=== PATIENT | female | born 1955 | race Caucasian/White ===

== ENCOUNTER 2018-11-24 18:53 | Inpatient (IN) | payer OTHER, MEDICAID, SELFPAY ==
[2018-11-24 19:20] VITALS: BP 174/107; PULSE 118; RESP 20; TEMP 36.8; O2SAT 95; BMI 46.0
--- NOTE | 2018-11-24 21:29 | DI.CT.S_ITS ---
PROCEDURE: CT ABDOMEN PELVIS W CON INDICATIONS: abdominal pain TECHNIQUE: After the administration of intravenous contrast, 5 mm thick sections acquired from the diaphragm to the symphysis. 5 mm coronal and sagittal reformats were acquired. For radiation dose reduction, the following was used: automated exposure control, adjustment of mA and/or kV according to patient size. COMPARISON: None. FINDINGS: Image quality: Excellent. ABDOMEN: Lung bases: A basilar atelectasis. Heart size is normal. Solid organs: Liver is normal in size and enhancement. Small 1.2 cm anterior right hepatic lobe hypodensity best seen on image 18, series 2. Suggestion of peripheral nodular enhancement. Findings are likely related to a hepatic hemangioma. Gallbladder is unremarkable. Biliary system is non dilated. Pancreas enhances normally. Spleen is normal in size and enhancement. No adrenal nodules. Kidneys demonstrate normal size and enhancement, without hydronephrosis. Tiny punctate right renal density consistent with a nonobstructive renal stone. Peritoneum and bowel: There is a segment of circumferential bowel thickening of the sigmoid colon with associated narrowing and moderate dilatation of the remaining colon proximally. There is also mild pneumatosis involving the cecum and ascending colon. No evidence for portal venous gas or biliary gas. Visualized stomach and small bowel appear normal in caliber and thickness. There is reactive free fluid along the perihepatic region extending along the right paracolic gutter into the pelvis. Small amount of left paracolic fluid. No organized fluid collection or intra-abdominal free air. Extensive colonic diverticular disease without evidence for acute diverticulitis. Of note, the segment of thickened and narrowed sigmoid colon does not have peridiverticular inflammatory changes. Nodes and vessels: No retroperitoneal or mesenteric adenopathy by size criteria. Aorta and inferior vena cava are normal in size. Miscellaneous: No ventral hernias. PELVIS: Genitourinary: Bladder wall thickness is normal. Miscellaneous: No inguinal hernias or adenopathy. Bones: No suspicious bony lesions. No acute vertebral body compression fractures. Multilevel spondylosis of the imaged spine. IMPRESSION: 1. High-grade partial obstruction of the distal colon secondary to narrowing and circumferential thickening of the sigmoid colon. Findings may be related to an inflammatory/infectious process; however, underlying mass not excluded. Recommend direct visualization with colonoscopy after resolution of acute findings. 2. Pneumatosis coli of the cecum and descending colon without evidence for bowel ischemia. Findings may be related to infectious/inflammatory process, obstruction, or increased intraluminal pressure. Recommend clinical surveillance. 3. Colonic diverticulosis without evidence for acute diverticulitis. 4. A 1.2 cm anterior right hepatic lobe hypodensity likely representing a hepatic hemangioma. 5. Nonobstructing right nephrolith. Findings were discussed with Dr. Moore of the emergency department at 2252 hours by the overnight radiologist. No significant discrepancy with the pipe fittings molder radiology preliminary report. Dictated by: Gideon Pettit M.D. on 11/25/2018 at 10:00 Approved by: Gideon Pettit M.D. on 11/25/2018 at 10:18
[2018-11-24 21:39] VITALS: BP 156/86; PULSE 109; RESP 22; O2SAT 94
[2018-11-24 21:45] LABS: Add Manual Diff / Slide Review NO; Basophils Absolute Auto 100 /uL (0-100); Basophils Percent Auto 0.5 % (0-2); Eosinophils Absolute Auto 0 /uL (0-450); Eosinophils Percent Auto 0.1 % (2-4); Hemoglobin 14.5 g/dL (12.0-16.0); Lymphocytes Absolute Auto 1100 /uL (1100-4500); Lymphocytes Percent Auto 5.6 % (25-40); Mean Corpuscular HGB Conc 33.7 % (30-36); Mean Corpuscular Hemoglobin 29.7 PG (26-34); Mean Corpuscular Volume 88.1 fL (80-100); Monocytes Absolute Auto 1700 /uL (0-900); Monocytes Percent Auto 8.5 % (3-14); Neutrophils Absolute Auto 17000 /uL (1500-7000); Neutrophils Percent Auto 85.3 % (50-75); Platelet Count 281 X10^3/uL (150-400); Red Blood Cell Count 4.88 X10^6/uL (4.0-5.2); White Blood Cell Count 19.9 X10^3/uL (4.5-11.0)
[2018-11-24] MEDS: SODIUM CHLORIDE 0.9% 1,000 ML 1000 ML IV (21:49)
[2018-11-24 21:54] LABS: INR 1.5 (0.9-1.3); Prothrombin Time 17.3 SECONDS (10.1-12.7)
[2018-11-24 21:57] LABS: PTT Partial Thromboplastin Tim 32 SECONDS (26.4-36.2)
[2018-11-24 21:59] LABS: Alanine Aminotransferase 8 IU/L (9-52); Albumin Globulin Ratio 1.3 (1.0-2.8); Alkaline Phosphatase 54 U/L (38-126); Aspartate Aminotransferase 18 IU/L (14-36); Bilirubin Total 1.1 mg/dL (0.2-1.3); Blood Urea Nitrogen 13 mg/dL (7-17); Calcium 9.2 mg/dL (8.4-10.2); Carbon Dioxide 29 mmol/L (22-32); Chloride 90 mmol/L (98-107); Estimated Glomerular Filt Rate 56.2 mL/min (>60); Glucose 145 mg/dL (80-110); HEMOLYSIS < 15 (0-50); Potassium 3.2 mmol/L (3.4-5.1); Sodium 129 mmol/L (137-145)
[2018-11-24 22:00] LABS: Lipase < 10 U/L (23-300)
[2018-11-24] MEDS: HYDROMORPHONE 0.5 MG INJ IV (22:34)
[2018-11-24 22:56] VITALS: BP 167/88; PULSE 111; RESP 24; TEMP 37.5; O2SAT 92
[2018-11-24 23:05] LABS: Bacteria Urine Many (>30); Culture Indicated Urine Specimen Cultured; RBC Urine 0-1/HPF (0-5/HPF); Squamous Epithelial Cell Urine 1-5 /HPF (0-5/HPF); WBC Urine 30-100/HPF (0-5/HPF)
[2018-11-24] MEDS: PIPERACILLIN-TAZO 3.375 GM/50 ML FROZ.PIGGY IV (23:17)
[2018-11-24 23:28] LABS: Lactate (Lactic Acid) 0.9 mmol/L (0.7-2.1)
[2018-11-25] VITALS (24 sets, daily range): BP systolic 77–156; BP diastolic 52–86; PULSE 88–110; RESP 14–28; TEMP 35.8–37.2; O2SAT 93–97; BMI 46.0
--- NOTE | 2018-11-25 | PATH_ITS ---
[facility] Accession Number: [id number] . 01 Material submitted: . PART A: colon - RIGHT COLON PART B: sigmoid colon - DISTAL SIGMOID COLON WITH PROXIMAL RECTUM PART C: ovary - RIGHT OVARY . 01 Clinical history: . POSSIBLE APPENDICITIS . 02 Diagnosis: A-B. Terminal Ileum, Appendix, Right Colon and Proximal Transverse Colon, Right Hemicolectomy (length 55.6 cm and includes 4.1 cm of terminal ileum) and Distal Sigmoid Colon with Proximal Rectum, Bowel Resection (length 14.2 cm): Diverticulosis and diverticulitis with transmural active inflammation, serositis, focal ischemic changes, and cecal rupture; acute appendicitis with serositis is present. There is no evidence of viral cytopathic effect, infectious organisms, regions of dysplasia or malignancy. . C. Right Ovary (3.7 cm in Greatest Dimension), Oophorectomy: Uniloculated benign neoplasm, favor benign serous cystadenoma. 12/03/2018 . 02 Comment: Selected slides were reviewed by my gastrointestinal pathologist colleague, Dr. Vinny Hawkins. . 02 Electronically signed: . Sue Hooks MD, Pathologist NPI- [id number] . 01 Gross description: . (A) Received in formalin, labeled right colon, is a colon segment which includes the terminal ileum (length-4.1 cm, proximal diameter-2.1 cm), ileocecal valve, cecum, descending colon (length-51.5 cm, distal diameter-4.0 cm), attached appendix (length-5.4 cm, diameter-up to 0.3 cm), and attached mesentery (up to 5.1 cm in depth). The cecum is perforated (4.4 x 1.1 cm) 2.1 cm from the appendiceal orifice, 3.8 cm from the ileocecal valve, 6.5 cm from the proximal and 49.3 cm from the distal resection margins. The proximal serosa is partially covered in flaky friable exudate. The segment is distended and has tierney-mallory mucosa with minimal normal folds and diffuse flat areas. The appendix is unremarkable. No nodules, masses or lesions are identified. The resection margins are inked black. Section code: (A1) proximal resection margin, ict sales representative longitudinal sections; (A2) distal resection margin, ict sales representative longitudinal sections; (A3, A4) perforated area, ict sales representative serial sections; (A5) appendix, ict sales representative; (A6-A8) ict sales representative serial sections submitted proximal to distal. Note: This specimen has been reviewed by Dr. Andreas Hawkins. (B) Received in formalin, labeled distal sigmoid colon with proximal rectum, is an unoriented opened section of colon (length-14.2 cm, resection margin #1 diameter-2.3 cm, resection margin #2 diameter-3.8 cm) with attached mesentery (up to 6.5 cm in depth). The resection margins are received stapled. The mucosa is tierney with compact distorted folds containing diffuse diverticula and a tierney irregular apparent polyp (3.0 x 0.9 x 0.9 cm). The polyp is 7.2 cm from resection margin #1, 5.8 cm from resection margin #2, 10.3 cm from the radial resection margin, and 1.5 cm from the serosa. No nodules, masses, lesions or other polyps are identified. The resection margins are inked black. Section code: (B1) resection margin #1, longitudinal ict sales representative; (B2) distal resection margin, ict sales representative longitudinal sections; (B3-B10) ict sales representative serial sections submitted from resection margin #1 to #2, which includes 75% of the polyp submitted as well as multiple diverticula. Note: This specimen has been reviewed by Dr. Andreas Hawkins. (C) Received in formalin, labeled right ovary, is a tierney-white rubbery cystic ovary (3.7 x 3.7 x 2.0 cm) with smooth shiny flat serosa and contains red-brown semi-translucent gelatinous material. A scant amount of normal ovarian parenchyma is identified. Punchboard Filling Machine Operator serial sections submitted in cassettes C1-C4. ([id number]) /MRV . 02 Microscopic: . Immunohistochemical stains were performed with the following results. The controls stained appropriately. . RESULTS: Block C1 WT1: Positive on ovarian cyst lining cells. TTF1: Negative on ovarian cyst lining cells. . Results mitigate against the presence of struma ovarii. . * This test was developed and its performance characteristics determined by [facility]. It has not been cleared or approved by the U.S. Food and Drug Administration. The FDA has determined that such clearance or approval is not necessary. This test is used for clinical purposes. It should not be regarded as investigational or for research. . 02 Pathologist provided ICD-10: K35.80, K57.80 . 02 CPT . 896449, 715853, 173784, U71800, N48961 Performed at: [facility] [address] [id number] MD Keyur Humphries MD Phone: [phone] Performed at: 02 [facility] [address] [place] [id number] MD Cynthia Kulkarni MD Phone: [phone]
[2018-11-25 00:09] LABS: Carcinoembryonic Antigen 1.9 ng/mL (0.1-3.0)
--- NOTE | 2018-11-25 00:19 | P.HP_ITS ---
History of Present Illness Date Patient Seen: 11/25/18 Time Patient Seen: 00:18 Chief complaint: SENT BY MD - POSSIBLE APPENDICITIS Narrative: 63 yo woman without family hx of colorectal cancer and without prior colonoscopy presents with 9 days of progressive nausea watery diarrhea and gene rally feeling unwell. In the previous 4 days she has developed significant abdominal distention. Two days ago she began to develop significant right lower quadrant pain. She denies bloody bowel movements. In the emergency department she was found to have a leukocytosis of 19, creatinine of 1, CT scan demonstrated a large bowel obstruction at the level of the sigmoid colon with diverticular disease. She was noted market large bowel dilation with a relatively competent ileocecal valve and minimal small-bowel dilation. Her cecum is markedly dilated to over 14 cm, there appears to be some pneumatosis intestinalis within the wall of the cecum. No family history of colon polyps, no family history of inflammatory bowel disease is Patient History Medical History (Updated 11/25/18 @ 01:25 by Leonid Silvestre MD) Anxiety (Acute) Obesity (Acute) Meds Home Medications Medication Instructions Recorded Confirmed Type diazepam 5 mg PO PRN 11/24/18 History Allergies Allergy/AdvReac Type Severity Reaction Status Date / Time No Known Drug Allergies Allergy Verified 11/24/18 22:20 Review of Systems Constitutional Constitutional: Denies fever(s) Eyes Eyes: Denies bulging eyes ENT Ears, Nose, Mouth, and Throat: No lip swelling Cardiovascular Cardiovascular: Denies generalize swelling Respiratory Respiratory: Denies stridor Gastrointestinal Gastrointestinal: Denies coffee ground emesis Musculoskeletal Musculoskeletal: Denies loss of height Integumentary/Breasts Skin/Breast: Denies wounds Neurologic Neurologic: Denies abnormal speech and Denies confusion Psychiatric Psychiatric: Denies confusion Endocrine Endocrine: Denies deepening of the voice Hematologic/Lymphatic Hematologic/Lymphatic: Denies lymphadenopathy Allergic/Immunologic Allergic/Immunologic: Denies lip swelling Exam Vital Signs (past 8 hours): - 11/24/18 19:20 11/24/18 21:39 11/24/18 22:56 Temperature 98.2 F 99.5 F Pulse Rate 118 H 109 H 111 H Respiratory Rate 20 22 24 Blood Pressure 174/107 H Blood Pressure [Left Arm] 156/86 H 167/88 H Pulse Oximetry 95 94 92 Oxygen Delivery Method Room Air Narrative Exam Narrative: Moderately toxic appearing woman in obvious pain Const General: cooperative Orientation: alert [facility] Head: normal to inspection Nose: nares normal Mouth: oral mucosae normal and lip normal Eyes Eyelids: eyelids normal Conjunctivae: conjunctivae normal Sclera: sclerae normal Neck Neck: supple and other (No thyromegally) Chest Chest: other (LCTAB , regular respiratory effort) Cardio Rhythm: regular rhythm Heart Sounds: S1 normal, S2 normal, no gallops, no murmurs and no rubs GI Other: Abdomen is notably distended, bowel sounds are present, tympanitic, hard, firm, quite tender in the right lower quadrant, rectal exam without masses, no blood on glove, no blummers shelf Skin General: no rashes or lesions noted Neuro General: alert and awake Psych Appearance: grossly normal Affect: normal affect Objective Labs Result Diagrams: 11/24/18 21:35 11/24/18 21:35 Labs: Laboratory Results - last 24 hr 11/24/18 11/24/18 11/24/18 21:35 21:35 21:35 WBC 19.9 H RBC 4.88 Hgb 14.5 Hct 43.0 MCV 88.1 MCH 29.7 MCHC 33.7 RDW 13.0 Plt Count 281 Neut % (Auto) 85.3 H Lymph % (Auto) 5.6 L Shoshone % (Auto) 8.5 Eos % (Auto) 0.1 L Baso % (Auto) 0.5 Neut # (Auto) 08121 H Lymph # (Auto) 1100 Shoshone # (Auto) 1700 H Eos # (Auto) 0 Baso # (Auto) 100 PT 17.3 H INR 1.5 H APTT 32 Sodium 129 L Potassium 3.2 L Chloride 90 L Carbon Dioxide 29 BUN 13 Creatinine 1.00 Estimated GFR 56.2 L BUN/Creatinine Ratio 13.0 Glucose 145 H Lactate Calcium 9.2 Total Bilirubin 1.1 AST 18 ALT 8 L Alkaline Phosphatase 54 Total Protein 7.0 Albumin 4.0 Globulin 3.0 Albumin/Globulin Ratio 1.3 Lipase < 10 L Carcinoembryonic Ag Urine RBC Urine WBC Ur Squamous Epith Cells Urine Bacteria Ur Culture Indicated? 11/24/18 11/24/18 11/24/18 21:35 22:40 23:09 WBC RBC Hgb Hct MCV MCH MCHC RDW Plt Count Neut % (Auto) Lymph % (Auto) Shoshone % (Auto) Eos % (Auto) Baso % (Auto) Neut # (Auto) Lymph # (Auto) Shoshone # (Auto) Eos # (Auto) Baso # (Auto) PT INR APTT Sodium Potassium Chloride Carbon Dioxide BUN Creatinine Estimated GFR BUN/Creatinine Ratio Glucose Lactate 0.9 Calcium Total Bilirubin AST ALT Alkaline Phosphatase Total Protein Albumin Globulin Albumin/Globulin Ratio Lipase Carcinoembryonic Ag 1.9 Urine RBC 0-1/hpf Urine WBC 30-100/hpf H Ur Squamous Epith Cells 1-5 /hpf Urine Bacteria Many (>30) H Ur Culture Indicated? Specimen cultured Assessment & Plan Assessment & Plan narrative: 63-year-old woman with large bowel obstruction in the setting of competent ileocecal valve causing significant large bowel dilation with market cecal wall tension, concern for cecal perforation given tenderness and pneumatosis within wall cecum. Source of sigmoid obstruction colon cancer versus diverticular stricture -I favor the latter but cannot be sure. I discussed need for emergent surgery with patient given risk of cecal perforation, NG tube decompression now Surgical plan will be for sigmoid resection of mass, and given large caliber of bowel likely end-colostomy, may need cecal/right resection depending on health the cecum. Possibility for diverting ostomy. Plan: NG tube Pip lenora in ER Emergency bowel resetion I discussed risks of surgery including bleeding, infection, injury to adjacent structures including ureter, blood vessels, discussed the need for a temporary ostomy, discussed the possibility of a permanent ostomy, discussed the need for further surgery in the future for potential ostomy reversal. All questions a patient answered Patient makes clear to me that in the event that she is unable to make her own independent medical decision she would like her friend Kyra Peña to be her surrogate medical decision maker
[2018-11-25] MEDS: LACTATED RINGERS 1,000 ML 42 ML IV ×5 (01:00→09:18)
--- NOTE | 2018-11-25 02:13 | SUR.OPER ---
Lithotomy on padded OR bed, head on pillow, arms secured on padded arm boards at <90 degrees abduction. Legs secured in padded yellow fins stirrups.
--- NOTE | 2018-11-25 03:01 | PM.PROC.1 ---
Procedures Date/Time Date of procedure: 11/25/18 Time of procedure: : General Procedure description: Patient got a thoracic epidural prior to surgery for post op pain control, requested by general surgeon, Dr. Silvestre. Risks and benefits were discussed with patient prior to surgery. In OR, patient was sat on OR table, ASA monitoring applied, supplimental O2 supplied, 2 mg midazolam and 100mcg fentanyl given for procedural sedation. In sterile fashion, skin was prepped with chlorhexidine and allowed to fully dry. 1% lidocaine was injected for skin anesthesia. Using Remigio 18ga needle and low resistance saline syringe, T9-10 vertebral interspace was accessed via midline approach. MANUEL resistance at 9-10cm beyond skin. Epidural catheter was threaded to 15cm at skin. Negative aspiration. Test dose of 1.5% lidocaine with epi was given, no test dose reaction. Catheter was secured to skin with large tegaderm and medipore tape. Patient tolerated the procedure well.
--- NOTE | 2018-11-25 03:08 | P.PCN_ITS ---
Procedures Date/Time Date of procedure: 11/25/18 Time of procedure: General Procedure description: Patient got a thoracic epidural prior to surgery for post op pain control, requested by general surgeon, Dr. Silvestre. Risks and benef its were discussed with patient prior to surgery. In OR, patient was sat on OR table, ASA monitoring applied, supplimental O2 supplied, 2 mg midazolam and 100mcg fentanyl given for procedural sedation. In sterile fashion, skin was prepped with chlorhexidine and allowed to fully dry. 1% lidocaine was injected for skin anesthesia. Using Remigio 18ga needle and low resistance saline syringe, T9-10 vertebral interspace was accessed via midline approach. MANUEL resistance at 9-10cm beyond skin. Epidural catheter was threaded to 15cm at skin. Negative aspiration. Test dose of 1.5% lidocaine with epi was given, no test dose reaction. Catheter was secured to skin with large tegaderm and medipore tape. Patient tolerated the procedure well.
[2018-11-25 04:24] LABS: Add Manual Diff / Slide Review NO; Basophils Absolute Auto 0 /uL (0-100); Basophils Percent Auto 0.1 % (0-2); Eosinophils Absolute Auto 0 /uL (0-450); Eosinophils Percent Auto 0.2 % (2-4); Hematocrit 39.9 % (36-46); Hemoglobin 13.5 g/dL (12.0-16.0); Lymphocytes Absolute Auto 600 /uL (1100-4500); Lymphocytes Percent Auto 5.5 % (25-40); Mean Corpuscular HGB Conc 33.8 % (30-36); Mean Corpuscular Hemoglobin 29.8 PG (26-34); Mean Corpuscular Volume 88.2 fL (80-100); Monocytes Absolute Auto 500 /uL (0-900); Monocytes Percent Auto 5.2 % (3-14); Neutrophils Absolute Auto 9200 /uL (1500-7000); Platelet Count 247 X10^3/uL (150-400); Red Blood Cell Count 4.53 X10^6/uL (4.0-5.2); White Blood Cell Count 10.3 X10^3/uL (4.5-11.0)
[2018-11-25] MEDS: PIPERACILLIN-TAZO 3.375 GM/50 ML FROZ.PIGGY IV ×4 (05:00→22:14)
--- NOTE | 2018-11-25 06:35 | ED_ITS ---
HPI - Abdominal Pain General Chief Complaint: Abdominal Pain Stated Complaint: SENT BY MD - POSSIBLE APPENDICITIS Time Seen by Provider: 11/24/18 20:30 Source: patient and family Mode of arrival: ambulatory Limitations: no limitations History of Present Illness HPI narrative: 63-year-old female nonsmoker with benign medical history presents with a family friend in the chief complaint of severe, worsening generalized abdominal pain over the course of the week. She now has decreased appetite and nausea along with watery diarrhea and increasing abdominal distension. She has had subjective fever. She saw her primary care provider today whom sent her here for further evaluation. She has never had a colonoscopy. Her last oral intake was about 10 hours prior to arrival but she did have some water on the Saud MD complaint: abdominal pain Onset (ago): day(s) Pain Consistency: constant Location: diffuse Severity: severe Quality: cramping Radiation: none Relieving factors: nothing Exacerbating factors: movement Associated symptoms: nausea, vomiting, diarrhea, fever and chills Related Data Home Medications Medication Instructions Recorded Confirmed diazepam 5 mg PO PRN 11/24/18 Allergies Allergy/AdvReac Type Severity Reaction Status Date / Time No Known Drug Allergies Allergy Verified 11/24/18 22:20 Review of Systems Constitutional Denies chills, Denies fever(s), Denies lethargy and Denies weakness Eyes Denies change in vision, Denies eye discharge, Denies irritation and Denies loss of vision ENT Ears, Nose, Mouth, and Throat: Denies change in voice, Denies neck pain and Denies sore throat Cardiovascular Denies chest pain, Denies irregular heart rhythm, Denies lightheadedness, Denies palpitations, Denies dyspnea, Denies dyspnea on exertion and Denies orthopnea Respiratory Denies cough, Denies dyspnea, Denies dyspnea on exertion and Denies wheezing Gastrointestinal Gastrointestinal: Reports abdominal pain, Denies change in bowel habits, Reports diarrhea, Reports nausea and Reports vomiting Genitourinary Denies hematuria, Denies flank pain, Denies urinary incontinence and Denies urinary urgency Musculoskeletal Denies neck pain Integumentary/Breasts Denies pruritus, Denies erythema, Denies rash and Denies wounds Neurologic Denies confusion, Denies loss of vision and Denies weakness Psychiatric Denies anxiety, Denies confusion, Denies depression, Denies homicidal ideation and Denies suicidal ideation Endocrine Denies palpitations Hematologic/Lymphatic Denies easy bruising Allergic/Immunologic Denies wheezing [facility] Medical History Anxiety (Acute) Obesity (Acute) Social History (Updated 11/25/18 @ 06:33 by Kayode Moore DO) Smoking Status: Never smoker Exam Narrative Exam Narrative: GENERAL: [63] year old patient appears stated age. Obese, well- developed patient, in significant distress. HEAD: Atraumatic. Normocephalic. EYES: Pupils equal round and reactive. Extraocular motions intact. No scleral icterus. No injection or drainage. ENT: Nose without bleeding, purulent drainage. Throat without erythema, tonsillar hypertrophy or exudate. Airway patent. NECK: Trachea midline. Non tender CARDIOVASCULAR: Tachycardic but regular rhythm without murmurs, gallops, or rubs. RESPIRATORY: Clear to auscultation. Breath sounds equal bilaterally. No wheezes, rales, or rhonchi. GASTROINTESTINAL: Firm distended abdomen, bowel sounds present EXTREMITIES: No edema or joint tenderness. BACK: Nontender without deformity or crepitance. No flank tenderness. NEURO: AOx3. SKIN: No rash or erythema of visible areas Initial Vital Signs Initial Vital Signs: Vital Signs Temperature 98.2 F 11/24/18 19:20 Pulse Rate 118 H 11/24/18 19:20 Respiratory Rate 20 11/24/18 19:20 Blood Pressure 174/107 H 11/24/18 19:20 Pulse Oximetry 95 11/24/18 19:20 Course Orders Ordered: ED Orders 11/24/18 21:35 Carcinoembryonic Antigen Stat Complete Blood Count AUTO DIFF Stat Comprehensive Metabolic Panel Stat Lipase Stat Partial Thromboplastin Time Stat Prothrombin Time INR Stat 11/24/18 22:40 Urine Culture Stat Urine Microscopic Stat 11/24/18 23:09 Lactate (Lactic Acid) Stat 11/25/18 02:14 Body Fluid Culture Routine 11/25/18 04:05 Complete Blood Count AUTO DIFF Stat Packed Cells Stat Type and Screen Stat Acetaminophen (Tylenol) 325 mg PO NOW PRN PRN Reason: Pain, Mild (1-3) Fentanyl (Sublimaze) 50 mcg IV Q5MIN PRN PRN Reason: Pain, Moderate (4-6) Hydromorphone HCl (Dilaudid) 0.5 mg IV Q5MIN PRN PRN Reason: Pain, Moderate (4-6) Lactated Ringer's (Lactated Ringers) 1,000 mls @ 42 mls/hr IV CONT PEACE Last Admin: 11/25/18 06:23 Dose: 42 mls/hr Infusion: 11/25/18 06:23 Dose: 42 mls/hr Admin: 11/25/18 02:41 Dose: 42 mls/hr Infusion: 11/25/18 02:41 Dose: 42 mls/hr Admin: 11/25/18 01:00 Dose: 42 mls/hr FENT 2MCG/ML BUPIV 0.125% EPI (Fentanyl/Bupiv/Ns 2mcg/Ml - 0.125%) 2 mcg in 100 mls @ 6 mls/hr EPIDURAL CONT PEACE Lorazepam (Ativan) 0.25 mg IV NOW PRN PRN Reason: Anxiety Metoclopramide HCl (Reglan) 10 mg IV NOW PRN PRN Reason: Nausea And Vomiting Ondansetron HCl (Zofran) 4 mg IV Q4HR PRN PRN Reason: Nausea And Vomiting Ondansetron HCl (Zofran) 4 mg IV NOW PRN PRN Reason: Nausea And Vomiting Oxycodone/Acetaminophen (Percocet 5/325) 1 tab PO Q30MIN PRN PRN Reason: Mild or moderate pain Discontinued Medications Hydromorphone HCl (Dilaudid) 0.5 mg IV NOW ONE Stop: 11/24/18 22:06 Last Admin: 11/24/18 22:34 Dose: 0.5 mg Sodium Chloride (Normal Saline 0.9%) 1,000 mls @ 1,000 mls/hr IV BOLUS ONE Stop: 11/24/18 22:41 Last Infusion: 11/25/18 00:55 Dose: 0 mls/hr Admin: 11/24/18 21:49 Dose: 1,000 mls/hr Piperacillin/Tazobactam/Dextrose (Zosyn) 3.375 gm in 50 mls @ 100 mls/hr IV NOW ONE Stop: 11/24/18 23:33 Last Infusion: 11/24/18 23:50 Dose: 0 mls/hr Admin: 11/24/18 23:17 Dose: 100 mls/hr Piperacillin/Tazobactam/Dextrose (Zosyn) 3.375 gm in 50 mls @ 100 mls/hr IV NOW ONE Stop: 11/25/18 05:44 Last Infusion: 11/25/18 05:41 Dose: 0 mls/hr Admin: 11/25/18 05:00 Dose: 100 mls/hr Reevaluation(s) Reevaluation #1: call to Gen surgery with CT findings, request that he will come see patient Vital Signs - 8 hr 11/24/18 22:56 Temperature 99.5 F Pulse Rate 111 H Respiratory Rate 24 Blood Pressure [Left Arm] 167/88 H Pulse Oximetry 92 MDM - Abdominal Pain Lab Data Result diagrams: 11/25/18 04:05 11/24/18 21:35 Lab Results 11/24/18 11/24/18 11/24/18 Range/Units 21:35 21:35 21:35 WBC 19.9 H (4.5-11.0) X10^3/uL RBC 4.88 (4.0-5.2) X10^6/uL Hgb 14.5 (12.0-16.0) g/dL Hct 43.0 (36-46) % MCV 88.1 (80-100) fL MCH 29.7 (26-34) PG MCHC 33.7 (30-36) % RDW 13.0 (11.6-14.8) % Plt Count 281 (150-400) X10^3/uL Neut % (Auto) 85.3 H (50-75) % Lymph % (Auto) 5.6 L (25-40) % [place] % (Auto) 8.5 (3-14) % Eos % (Auto) 0.1 L (2-4) % Baso % (Auto) 0.5 (0-2) % Neut # (Auto) 87249 H (4806-9775) /uL Lymph # (Auto) 1100 (3566-7353) /uL [place] # (Auto) 1700 H (0-900) /uL Eos # (Auto) 0 (0-450) /uL Baso # (Auto) 100 (0-100) /uL PT 17.3 H (10.1-12.7) SECONDS INR 1.5 H (0.9-1.3) APTT 32 (26.4-36.2) SECONDS Sodium 129 L (137-145) mmol/L Potassium 3.2 L (3.4-5.1) mmol/L Chloride 90 L (98-107) mmol/L Carbon Dioxide 29 (22-32) mmol/L BUN 13 (7-17) mg/dL Creatinine 1.00 (0.52-1.04) mg/dL Estimated GFR 56.2 L (>60) mL/min BUN/Creatinine Ratio 13.0 (6-22) Glucose 145 H (80-110) mg/dL Lactate (0.7-2.1) mmol/L Calcium 9.2 (8.4-10.2) mg/dL Total Bilirubin 1.1 (0.2-1.3) mg/dL AST 18 (14-36) IU/L ALT 8 L (9-52) IU/L Alkaline Phosphatase 54 (38-126) U/L Total Protein 7.0 (6.3-8.2) g/dL Albumin 4.0 (3.5-5.0) g/dL Globulin 3.0 (1.7-4.1) g/dL Albumin/Globulin Ratio 1.3 (1.0-2.8) Lipase < 10 L (23-300) U/L Carcinoembryonic Ag (0.1-3.0) ng/mL Urine RBC (0-5/HPF) Urine WBC (0-5/HPF) Ur Squamous Epith Cells (0-5/HPF) Urine Bacteria (None) Ur Culture Indicated? Blood Type Antibody Screen Crossmatch 11/24/18 11/24/18 11/24/18 Range/Units 21:35 22:40 23:09 WBC (4.5-11.0) X10^3/uL RBC (4.0-5.2) X10^6/uL Hgb (12.0-16.0) g/dL Hct (36-46) % MCV (80-100) fL MCH (26-34) PG MCHC (30-36) % RDW (11.6-14.8) % Plt Count (150-400) X10^3/uL Neut % (Auto) (50-75) % Lymph % (Auto) (25-40) % [place] % (Auto) (3-14) % Eos % (Auto) (2-4) % Baso % (Auto) (0-2) % Neut # (Auto) (7995-9487) /uL Lymph # (Auto) (3150-3416) /uL [place] # (Auto) (0-900) /uL Eos # (Auto) (0-450) /uL Baso # (Auto) (0-100) /uL PT (10.1-12.7) SECONDS INR (0.9-1.3) APTT (26.4-36.2) SECONDS Sodium (137-145) mmol/L Potassium (3.4-5.1) mmol/L Chloride (98-107) mmol/L Carbon Dioxide (22-32) mmol/L BUN (7-17) mg/dL Creatinine (0.52-1.04) mg/dL Estimated GFR (>60) mL/min BUN/Creatinine Ratio (6-22) Glucose (80-110) mg/dL Lactate 0.9 (0.7-2.1) mmol/L Calcium (8.4-10.2) mg/dL Total Bilirubin (0.2-1.3) mg/dL AST (14-36) IU/L ALT (9-52) IU/L Alkaline Phosphatase (38-126) U/L Total Protein (6.3-8.2) g/dL Albumin (3.5-5.0) g/dL Globulin (1.7-4.1) g/dL Albumin/Globulin Ratio (1.0-2.8) Lipase (23-300) U/L Carcinoembryonic Ag 1.9 (0.1-3.0) ng/mL Urine RBC 0-1/hpf (0-5/HPF) Urine WBC 30-100/hpf H (0-5/HPF) Ur Squamous Epith Cells 1-5 /hpf (0-5/HPF) Urine Bacteria Many (>30) H (None) Ur Culture Indicated? Specimen cultured Blood Type Antibody Screen Crossmatch 11/25/18 11/25/18 Range/Units 04:05 04:05 WBC 10.3 (4.5-11.0) X10^3/uL RBC 4.53 (4.0-5.2) X10^6/uL Hgb 13.5 (12.0-16.0) g/dL Hct 39.9 (36-46) % MCV 88.2 (80-100) fL MCH 29.8 (26-34) PG MCHC 33.8 (30-36) % RDW 13.0 (11.6-14.8) % Plt Count 247 (150-400) X10^3/uL Neut % (Auto) 89.0 H (50-75) % Lymph % (Auto) 5.5 L (25-40) % [place] % (Auto) 5.2 (3-14) % Eos % (Auto) 0.2 L (2-4) % Baso % (Auto) 0.1 (0-2) % Neut # (Auto) 9200 H (5065-1313) /uL Lymph # (Auto) 600 L (5104-1276) /uL [place] # (Auto) 500 (0-900) /uL Eos # (Auto) 0 (0-450) /uL Baso # (Auto) 0 (0-100) /uL PT (10.1-12.7) SECONDS INR (0.9-1.3) APTT (26.4-36.2) SECONDS Sodium (137-145) mmol/L Potassium (3.4-5.1) mmol/L Chloride (98-107) mmol/L Carbon Dioxide (22-32) mmol/L BUN (7-17) mg/dL Creatinine (0.52-1.04) mg/dL Estimated GFR (>60) mL/min BUN/Creatinine Ratio (6-22) Glucose (80-110) mg/dL Lactate (0.7-2.1) mmol/L Calcium (8.4-10.2) mg/dL Total Bilirubin (0.2-1.3) mg/dL AST (14-36) IU/L ALT (9-52) IU/L Alkaline Phosphatase (38-126) U/L Total Protein (6.3-8.2) g/dL Albumin (3.5-5.0) g/dL Globulin (1.7-4.1) g/dL Albumin/Globulin Ratio (1.0-2.8) Lipase (23-300) U/L Carcinoembryonic Ag (0.1-3.0) ng/mL Urine RBC (0-5/HPF) Urine WBC (0-5/HPF) Ur Squamous Epith Cells (0-5/HPF) Urine Bacteria (None) Ur Culture Indicated? Blood Type A Positive Antibody Screen Negative Crossmatch See Detail Point of care testing: Urine Dip Bedside Urine Glucose Negative Bedside Urine Bilirubin - Negative Bedside Urine Ketone ++ 40 Urine Specific [place] 1.005 Bedside Urine Occult Blood ++ Bedside Urine pH 6.5 Bedside Urine Protein +/- 15 Bedside Urine Urobilinogen +/- 1mg Bedside Urine Nitrite + Positive Bedside Urine Leukocytes + 70 Esterase Discharge Plan Departure Patient Disposition: Admitted As Inpatient Clinical Impression: Large bowel obstruction Discharge Date/Time: 11/25/18 01:00 Interventions: ED Discharge Assessment Last Done: 11/24/18 23:48 Admit Date/Time: 11/24/18 23:05 Admit Provider: Leonid Silvestre
--- NOTE | 2018-11-25 10:05 | P.OP_ITS ---
Operative Date/Time/Diagnoses Date of procedure: 11/25/18 Time of procedure: 09:35 Pre-op diagnosis: High-grade sigmoid large bowel obstruction with impending cecal perforation Post-op diagnosis: other (High-grade sigmoid large bowel obstruction likely from diverticular disease, contained cecal perforation, numerous serosal tears of right colon) Procedure & Clinicians Procedure: 1) exploratory laparotomy 2) right hemicolectomy 3) distal sigmoid/proximal rectum bowel resection with extensive intrapelvic adhesiolysis 4) mobilization of splenic flexure 5) right oophorectomy 6) stapled 28 mm colorectal anastomosis, stapled [id number] functional end-to-end ileal colonic anastomosis 7) abdominal washout 8) diverting loop ileostomy 9) pedicle creation of greater omentum Same procedure as scheduled: Yes Surgeon: Leonid Silvestre Unpaid Intern: Roshan Hong Click Yes if Unassisted: No Anesthesia Type: General Operative Notes Findings: 1-contained cecal perforation with encasing omentum 2-extensive serosal rents within right colon and proximal transverse colon 3 -suspect diverticular mass obstructing the distal sigmoid colon 4 -adherent gallbladder dome to sigmoid colon potentially early colovesicular fistula 5-sigmoid specimen opened on the back table -appeared to be 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 A generous midline incision was carried through the skin subcutaneous tissue the fascia just superior to the umbilicus was scored with Bovie cautery and elevated with Bakari clamps and then divided in the midline. The underlying peritoneum was divided between tonsil clamps with the Metzenbaum. A finger sweep confirmed the absence of local adhesive disease in the fascia was opened widely inferiorly a bladder flap was created to allow of fascial division to the near vicinity of the pubic symphysis. The fascial incision was there did carried superiorly to within approximately 5 cm of the xiphoid process. Quite readily identified within the abdomen was markedly distended large bowel loops which appeared to be engorged purpuric and generally ischemic. There were numerous serosal tears along the right colon and distal transverse colon. There was no purulence within the of free fluid noted within the abdomen though this was cultured. Head there was significant inflammatory adhesions within the abdomen. Began by mobilizing the adhesions on the right side of the colon to assess the degree of ischemia with the cecum. In the process of finger fracturing greater omentum off of the sigmoid colon a contained perforation was entered with a rash of gas upon opening. Perforation was approximately 4 by 1 cm in size was a splitting of the colonic wall. The perforation was rapidly up close between 2 clamps with very minimal spillage. Then proceeded to inspect the remainder of the right colon there was 1 additional a perforation site which was closed with a whipstitch presented. With the egress of gas from the cecum the colon was much easier to handle I was able to inspect the majority of its anterior surface and in generally found the distal transverse colon as well as the left colon to be healthy. A hand was inserted into the pelvis and a firm but mobile mass was identified within the pelvis at the distal sigmoid colon this was adherent to the dome of the bladder as well as the adnexa on the left side and right side. Given the significant disease within the right colon in the ischemic wall of much of the right colon this became the operative priority. The greater omentum was reflected off of the transverse colon utilizing the avascular plane to enter into the lesser sac. I then divided the ileum approximately 5 cm from the ileocecal valve using a green load HETAL stapler. Moving from proximal to distal of the right colon, hepatic flexure was mobilized from its lateral attachments utilizing the white line of T[place]t and opening up the embryologic plane. I was careful not to incorporate Sander is fascia and preserved the duodenum without Kocherization. With the right colon mobilized of the midtransverse colon was divided utilizing a HETAL green load stapler in the entire mesentery was taken use lysing sequential clamp and tie technique. Over the course of mobilizing the hepatic flexure a medium-size mesenteric vein was avulsed. With good exposure it was able to be grasped and a right angle clamp placed across it. A stick tie was then utilized to suture ligate this vein. Hemostasis was excellent. Given the below benign disease on the right side I did not attempt to do a high ligation with removal of the right colon. As the mesentery was divided quite close to the bowel wall the right ureter was not identified. I then proceeded to to begin the pelvic dissection of the anterior portion of the sigmoid colon was freed from its inflammatory adhesions to the dome of the bladder several these adhesions were quite dense suspicious for a later colovesicular fistula. No mucosal tissue was identified however the bladder. The right adnexa was also significantly adherent to the colon. This was dissected off the right ovary appeared to be generally enlarged with a internal soft but cystic structure as a consequence it was removed. It was clamped and the pedicle ligated with the stick tie of 2 0 silk.. Then proceeded to enter into the embryologic plane along the white line of Toldt the lateral upper portion of the sigmoid colon working lateral to medial the iliopsoas muscle gonadal vessels as well as the ureter were clearly identified. The ureter was clearly seen to peristalse. Over the course of the ongoing dissection its location was checked multiple times. The sigmoid colon was then dissected free of the lateral sidewall and down into the pelvis. Approximately 4 cm proximal to the mass a window was made in the sigmoid colon mesentery and the colon divided with 2 fires of a 75 mm HETAL stapler. The mesentery was then divided with high ligation utilizing clamp and tie technique. At the level of sacral promontory the mother presacral space was entered . Small number of lateral stalks were removed on the medial lateral aspect of the proximal rectum. A small window was created in the rectal mesocolon and the mesocolon divided. I was careful to ensure that the division of the rectum was well below the splaying of the tinea. The rectum was divided with a TA stapler green load 60 mm . The specimen was brought off the field and then opened on the back table which revealed a benign appearing fibrous a stricture consistent with diverticular disease -is a small mobile mucosal lesion but this did not appear consistent with the tumor more so a enlarged polyp. At this point the entire left colon was mobilized as was the splenic flexure - this provided good length and allowed the small amount of remaining sigmoid colon to easily reach the rectal stump. The decision was made to place the patient in continuity given her market body habitus the difficulty of a anticipated future surgery as well as significant concern trying to bring up a colostomy through the patient's thick abdominal wall. Given the active inflammation and markedly dilated bowel caliber the decision was made to do a diverting loop ileostomy. With this left colon well mobilized was brought to the pelvis without difficulty -we then proceeded to open the sigmoid colon along the tenia to decompress. The controlling sutures were placed on either side of the enterotomy -this release gas and stool significant amount of time was spent decompressing the colon there was fecal contamination of pelvis which was moderate. Then proceeded to place a 28 mm anvil within the enterotomy incision and is and secured in place use lies in a 2 0 Prolene pursestring suture. 31 mm EEA stapler so or not currently available at the institution in was the largest size. Next of the stapler was advanced through the rectal stump the spike was deployed without incident the anvil was attached to it and the stapler was closed and fired without difficulty. Stapler was removed oddly the donut of the colonic side was robust and intact however the rectal side was not fully intact. A leak test was performed which showed a small area of bubbling on the anterior surface of the stapled anastomosis -this was closed given the minimal additional length using 3 simple interrupted vertical mattress sutures. Leak test was repeated with a sigmoidoscopy scope and hand used to occlude of the large bowel there were no further leaks despite significant pressure. With the anastomosis this created a large amount of fecal material emanated from the anus. At this point a functional end-to-end [id number] staple anastomosis was created between the terminal ileum and the distal sigmoid colon. This utilized a HETAL 75 stapler -the common enterotomy site was closed using hand-sewn 2 layer closure with 3 0 Vicryl a mucosal suture and buttressing 3 0 silk interrupted vertical mattress sutures.. A crotch stitch was placed anastomosis was palpated and found to be grossly open. A loop of ileum approximately 25 cm from the ileocolic anastomosis was identified that easily reached up through the anterior abdominal wall. On the right-sided just superior to the umbilicus the loop ileostomy was created an ellipse of skin was cored out as well as a subcutaneous tissue a cruciate incis ion was made on the anterior fascia of the anterior rectus sheath the rectus fibers were split along their direction in a cruciate incision of placed on the posterior sheath this easily permitted 2 fingers. A Oneyda drain was placed in a small mesenteric defect behind the ileal loop and used to tug the loop through the fascia to the level of the skin. The loop was then reduced in the abdomen copiously irrigated out with well over 10 L of fluid until it returned clear. A 19 Cambodian Bennie drain was then placed within the pelvis. A tongue of greater omentum was developed into a pedicle, this was used to place on the anterior aspect of the colorectal anastomosis where the initial bubble leak had been detected. The ileum loop was then pulled back through the fascial defect held in place wi th a Bard temporarily. Fascia was then closed using short travel small bite technique as well as multiple interrupted internal retention sutures Skin was then loosely closed with beni The ileostomy was matured the superior aspect was [place] correlates with the proximal aspect, the inferior aspect is distal. Both ends were probed and found to be widely open Appliance was applied Midline wound was packed wet to dry between beni Complications: none Condition: stable Disposition: ICU Plan for aftercare: ICU for ongoing resuscitation and epidural management
[2018-11-25] MEDS: EPI EPIDURAL (10:52)
[2018-11-25] MEDS: FENT 2 MCG/ML EPIDURAL (10:52)
[2018-11-25] MEDS: BUPIV 0.125% EPIDURAL (10:52)
[2018-11-25] MEDS: LACTATED RINGERS 1,000 ML 100 ML IV (10:55)
--- NOTE | 2018-11-25 12:04 | PC.ADMIT ---
Addendum entered by Cora Arreguin R.N. 11/25/18 15:38: Add 1530-Dr Spence made aware of hypotension, and positive response to IV blous, rec'd orders. Reduced epidural to 1ml/hr Addendum entered by Cora Arreguin R.N. 11/25/18 15:02: 1330-Dr Gordillo into see Pt, reduced epirdural rate to 2ml/hr and orders rec'd for fluid bolus, diet, activity, and communication to nursing staff. Pt denies pain at this time, reports discomfort with loza cath. Hourly urine output monitoring initiated. Tolerating 1 L NC. Addendum entered by Cora Arreguin R.N. 11/25/18 12:34: Add-[address] Cruz re: Hypotension, reduced epidural rate to 4mls/hr, with bolus per JUN Original Note: [address] Admission Note:Rec'd Pt from PACU Ray RN, Pt is A/o x3, drowsy, but speech is clear and appropriate. 2L NC Spo2 93%, lungs dim. ABD binder in place, and CDI ABD dressing to ABD midline. Wet to dry per op note and beni for closure. Illeostomy in place, beefy red with serosang drainage. Bennie drain compressed with serosang Pt has been updated of temp. status, Loza patent, PIV x2, Epidural in place and pain control infusion fentanyl/bupivicaine with good effect T7-T10, blood drainage to epidural insertion site. No nausea, pt c/o pressure to have stool discussed passing mucus/stool left post operatively. Bed lawson provided, no output. The patient,Erinn Saeed,63 y/o, was given written information regarding hospital policies, unit procedures and contact persons. Patient's smoking status: Never smoker. Vital Signs - 8 hr 11/25/18 09:45 11/25/18 09:48 11/25/18 09:53 Temperature 98.8 F Pulse Rate 90 95 H 90 Respiratory Rate 16 18 20 Blood Pressure 95/60 102/66 111/59 L Pulse Oximetry 94 94 95 11/25/18 09:57 11/25/18 10:03 11/25/18 10:09 Temperature 96.7 F L Pulse Rate 88 90 88 Respiratory Rate 24 16 22 Blood Pressure 126/57 L 121/62 Pulse Oximetry 95 95 95 11/25/18 10:23 11/25/18 10:28 11/25/18 10:40 Temperature 96.7 F L 96.5 F L 97.8 F Pulse Rate 90 88 92 H Respiratory Rate 22 22 19 Blood Pressure 115/80 110/74 106/81 Pulse Oximetry 96 95 93 11/25/18 11:50 Temperature 98.6 F Pulse Rate 104 H Respiratory Rate 27 H Blood Pressure 93/61 Pulse Oximetry 93
[2018-11-25] MEDS: SODIUM CHLORIDE 0.9% 100 ML 500 ML IV (13:45)
[2018-11-25] MEDS: LACTATED RINGERS 1,000 ML 500 ML IV (13:46)
[2018-11-25] MEDS: HEPARIN 5,000 UNIT/ML VIAL 5000 UNIT SUBCUT ×2 (13:58→21:13)
[2018-11-25] MEDS: ACETAMINOPHEN SUSP 650 MG/20.3 ML UDC TUBE ×2 (14:09→17:36)
--- NOTE | 2018-11-25 14:11 | DI.RAD.S_ITS ---
PROCEDURE: XR CHEST 1V INDICATIONS: verify NG tube placement TECHNIQUE: One view of the chest was acquired. COMPARISON: None. FINDINGS: Surgical changes and devices: Esophagogastric tube positioning normal.. Lungs and pleura: Lungs are mildly edematous but in the setting of reduced inspiration and large body habitus. No pleural effusions or pneumothorax. Mediastinum: Mediastinal contours appear normal. Heart size is normal. Bones and chest wall: No suspicious bony lesions. Overlying soft tissues appear unremarkable. IMPRESSION: A mild pulmonary edema pattern may be present but the inspiratory volume is reduced and the body habitus is large. This may simply represent mild atelectasis rather than true pulmonary edema. Esophagogastric tube positioning normal. Dictated by: Luc Alva M.D. on 11/25/2018 at 14:48 Approved by: Luc Alva M.D. on 11/25/2018 at 14:49
--- NOTE | 2018-11-25 14:17 | CM.DANOTE ---
Patient is a 63 year old female who was admitted on 11/24/18 for Lower Right Pain. Pt has [employer] and MI for insurance and her PCP is not listed. EMR was reviewed. Per Dr. Rankin, Surg Consult determined that pt needed surgery for sigmoid resection and new ostomy and pt currently with NG tube and surgery completed this morning and was quite complex. SW met bedside with pt and close friend Kyra and explained role and pt recently returned to the floor from surgery and was feeling quite drowsy and uncomfortable. Pt listened to discussion but did not participate much. Pt resides at home alone on [address] in a 3 bedroom house that she is considering selling as she feels it's too large and too much work for her. Pt is independent with ADL's but has been slowly declining the past few months and has felt weaker and less energy. 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 Pt denies hx of SNF or HH. Pt has designated her neighbor and friend Kyra as her DPOA but further discussion on completing formal pwk could be beneficial. Pt's friend Kyra lives nearby with her and both are good friends with the pt and have plans to help set up pt's house and clean/organize for when pt is stable for d/c home and eventually help sell the house if pt still determines it is needed. 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 Kyra feels SNF needed prior to return home for medical care and strengthening and preference would be [facility] if possible. Pt fell asleep and SW was not able to confirm this with pt and therefore no referral made for SNF yet at this time and waiting to determine how pt progresses during her hospital stay to determine SNF vs possible home to [place]. Plan: SW to follow closely tomorrow to determine d/c planning needs and further discussion with pt when she is more medically stable from surgery to discuss possible SNF vs home. If SNF, insurance auth will be needed and possible barrier to placement. DUONG Barraza Discharge Planning/Care Management Advanced directive, confirm from FAMILY Start: 11/25/18 00:15 Freq: Q24H Status: Complete Protocol: Document 11/25/18 00:15 HNB (Rec: 11/25/18 00:34 HNB [id number]) Advance Directive, confirm on record Time 00:34 Person contacted Patient Copy received No CM Discharge Assessment Start: 11/25/18 12:48 Freq: Status: Active Protocol: Document 11/25/18 12:48 BF (Rec: 11/25/18 12:57 BF [id number]) Discharge Planning Assessment Assigned Manager Manufacturing DUONG Juarez DPOA/Assigned Designee Name informal friend Kyra Underwood Contact Information [phone] Advance Directives? Yes History Provided By Patient Friend Medical Record Has Patient been admitted in last 30 No days? Prior Living Arrangements House Household Members none Type of transporation used prior to Drives own vehicle admit Independent with ADL's Yes Is patient alert and oriented? Yes Caregiver for Another No Patient/Family Preference Senior Care Facility Comment Waiting to see how pt progresses during her hospital stay of home vs SNF Discharge Plan Senior Care Facility Transportation Arrangement Friend vs facility pending plan of home vs SNF Medicare Choice List Provided Yes SNF/HH Preference likely [facility] if SNF needed, no referral made yet Has Agency SNF been contacted No Whiteboard Updated in Patient Room with Yes name and ext. # of Manager Manufacturing Review Status In Process Please Provide Date Initial DC 11/25/18 Assessment Was Performed Next Review Type Continued Stay Review
--- NOTE | 2018-11-25 14:33 | PT.IPTN ---
Surgery Performed Operation Date: 11/25/18 00:35 Actual Procedures p Exploratory Laparotomy GEN, right hemicolectomy, abdominal washout, sigmoid colectomy: beni, colorectal anastomosis, loop ileostomy, catecholization of greater omentum - Leonid Silvestre MD Physical Therapy Treatment Note M3 PT-IP Subjective Start: 11/25/18 14:31 Freq: NEEDED Status: Active Protocol: Document 11/25/18 14:31 AB (Rec: 11/25/18 14:33 AB [id number]) Subjective Physical Therapy Visit Type Notes checked with nurse waldron to change activity bedrest order and stated that they will change it. pt is not ready for PT though, pt's BP is still low: 82/53. will f/u tomorrow
--- NOTE | 2018-11-25 15:25 | PC.NURSE ---
Day Shift Wound care called and notified of wound care consult. Khadijah Funes RN will see patient tomorrow.
[2018-11-25] MEDS: SODIUM CHLORIDE 0.9% 1,000 ML 500 ML IV (15:33)
[2018-11-25 16:19] LABS: Lactate (Lactic Acid) 4.8 mmol/L (0.7-2.1)
[2018-11-25] MEDS: LIDOCAINE JELLY 2% 5 ML 1 APPLIC TOP (16:19)
[2018-11-25 16:21] LABS: B Type Natriuretic Peptide < 100 (<100)
--- NOTE | 2018-11-25 16:41 | PC.NURSE ---
Addendum entered by Lianna Alvares R.N. 11/25/18 22:33: 2230 - Pt c/o pain to back and LLQ, requesting to have abd binder loosened. Adjusted. Drsg intact. Epidural infusing at 1 ml/hr. Dilaudid given. Urine output 240cc for 7 hours. BP 119/68, HR remains tachycardic 108. 92% on 1L. Call light in reach. Addendum entered by Lianna Alvares R.N. 11/25/18 20:02: 1945 - Dr. Bebe gold on pt. Updated to current lactate, Vital signs and reports of discomfort. Reviewed I and O. and wound vac, to be place upon return to OR. Drsg remains intact with abd binder in place. Order for electrolyte check, okay to add-on to 1530 blood draw. Addendum entered by Lianna Alvares R.N. 11/25/18 17:42: 1750 - Pt continues to c/o loza catheter pain. 5 of 10. Ice pack provided, APAP given. Pt denies abd pain at rest. Monitor. Original Note: 1625 - NS bolus initiated. Epidural titrated down to 1ml/hr, per MD order r/t hypotension. Pt denies lightheadedness or chest pain. Monitor. 1630 - Pt c/o Loza catheter discomfort. Non-menses vaginal bleeding noted. eugenia-care, Lidocaine jelly applied. Balloon deflated, catheter advanced, balloon re-inflated and secure strap repositioned. Monitor.
[2018-11-25 17:57] LABS: Reflexed Lactate in 2 Hours Y
[2018-11-25 18:34] LABS: Lactate 2HR (Lactic Acid Rflx) 2.1 mmol/L (0.7-2.1)
[2018-11-25] MEDS: HYDROMORPHONE 0.5 MG INJ IV ×2 (18:39→22:25)
[2018-11-25 19:48] LABS: Carbon Dioxide 24 mmol/L (22-32); Chloride 97 mmol/L (98-107); HEMOLYSIS 21 (0-50); Potassium 3.4 mmol/L (3.4-5.1); Sodium 132 mmol/L (137-145)
[2018-11-25] MEDS: GABAPENTIN 400 MG CAPSULE 800 MG PO (21:03)
[2018-11-26] VITALS (25 sets, daily range): BP systolic 90–144; BP diastolic 49–87; PULSE 96–119; RESP 12–39; TEMP 36.4–37.1; O2SAT 17–97
[2018-11-26] MEDS: ACETAMINOPHEN SUSP 650 MG/20.3 ML UDC TUBE ×4 (00:48→17:29)
[2018-11-26] MEDS: LACTATED RINGERS 1,000 ML 100 ML IV ×2 (02:43→21:03)
[2018-11-26] MEDS: HYDROMORPHONE 0.5 MG INJ IV ×4 (02:52→21:02)
[2018-11-26] MEDS: PIPERACILLIN-TAZO 3.375 GM/50 ML FROZ.PIGGY IV ×3 (05:01→17:28)
[2018-11-26 05:50] LABS: Add Manual Diff / Slide Review NO; Basophils Absolute Auto 0 /uL (0-100); Basophils Percent Auto 0.1 % (0-2); Eosinophils Absolute Auto 0 /uL (0-450); Hematocrit 39.1 % (36-46); Hemoglobin 13.4 g/dL (12.0-16.0); Lymphocytes Absolute Auto 700 /uL (1100-4500); Lymphocytes Percent Auto 4.2 % (25-40); Mean Corpuscular HGB Conc 34.3 % (30-36); Mean Corpuscular Hemoglobin 30.4 PG (26-34); Mean Corpuscular Volume 88.6 fL (80-100); Monocytes Absolute Auto 900 /uL (0-900); Monocytes Percent Auto 4.9 % (3-14); Neutrophils Absolute Auto 16000 /uL (1500-7000); Neutrophils Percent Auto 90.8 % (50-75); Platelet Count 262 X10^3/uL (150-400); Red Blood Cell Count 4.42 X10^6/uL (4.0-5.2); Red Cell Distribution Width 13.1 % (11.6-14.8); White Blood Cell Count 17.6 X10^3/uL (4.5-11.0)
[2018-11-26 05:51] LABS: Magnesium 1.7 mg/dL (1.6-2.3)
[2018-11-26 05:52] LABS: BUN Creatinine Ratio 16.9 (6-22); Blood Urea Nitrogen 22 mg/dL (7-17); Calcium 7.8 mg/dL (8.4-10.2); Carbon Dioxide 28 mmol/L (22-32); Chloride 97 mmol/L (98-107); Estimated Glomerular Filt Rate 41.5 mL/min (>60); Glucose 129 mg/dL (80-110); HEMOLYSIS < 15 (0-50); Potassium 3.7 mmol/L (3.4-5.1); Sodium 132 mmol/L (137-145)
[2018-11-26] MEDS: HEPARIN 5,000 UNIT/ML VIAL 5000 UNIT SUBCUT ×3 (06:11→21:02)
--- NOTE | 2018-11-26 06:26 | PC.NURSE ---
NOC Shift: POD #1 Large bowel obstruction, pt AAOx3, pleasant, cooperative. Minimal complaint of pain from abdominal incisions affective pain control with epidural gtt @1ml/hr and diluadid prn IVP Q4H. VSS, ST on tele high of 113. Afebrile through shift. Remains on 1L NC to keep sats above 90 while sleeping IS started at bedside, pt complaint w/good effort. ABD round, large soft tender to touch. Rare BT's if any audible, no gas from ileostomy. Stoma beefy red, moist. Minimal drainage serrous. ABD dsg CDI, no orders for dsg changes currently. Possible return to OR today for repeat wash out and wound vac application. NG to LIS no output, Bennie drain patent with minimal output. Urine output 40 to 60 an hour. WBC increased this AM, H&H stable. Remains ICU status.
[2018-11-26] MEDS: MAGNESIUM SULFATE 4 GM/100 ML PIGGYBACK IV (08:52)
[2018-11-26] MEDS: POTASSIUM CHLORIDE 20 MEQ/15 ML UDC 40 MEQ PO (08:52)
--- NOTE | 2018-11-26 09:04 | PM.PN.1 ---
Subjective Date Patient Seen: 11/26/18 Time Patient Seen: 09:04 Interval history: Doing quite well this morning Making adequate urine Pain well controlled with thoracic epidural Has yet to mobilize Exam Vital Signs (past 8 hours): - 11/26/18 01:08 11/26/18 02:00 11/26/18 02:52 Temperature 98.2 F Pulse Rate 104 H 108 H Respiratory Rate 14 18 Blood Pressure 133/82 Pulse Oximetry 94 95 11/26/18 03:00 11/26/18 04:00 11/26/18 05:00 Temperature 98.6 F Pulse Rate 119 H 109 H 103 H Respiratory Rate 14 16 12 Blood Pressure 128/77 115/70 107/66 Pulse Oximetry 93 93 95 11/26/18 06:00 11/26/18 07:00 Temperature Pulse Rate 106 H 108 H Respiratory Rate 16 17 Blood Pressure 117/77 132/87 Pulse Oximetry 95 93 Oxygen Delivery Method Nasal Cannula Oxygen Flow Rate 1 Narrative Exam Narrative: Last 10 hours Uop 425 NG tube output now fallen significantly -clear Pelvic Drain with serous output Well-appearing no acute distress Breathing comfortably on minimal oxygen Regular tachycardia at 108 Abdomen soft minimally tender, ileostomy pink, minimal amount of straw-colored sweat within appliance, no gas in applying Open abdominal skin -pink, no adjacent induration or erythema, packed wet-to-dry with Kerlix Periphery warm and well perfused Objective Labs Result Diagrams: 11/26/18 05:15 11/26/18 05:15 Labs: Laboratory Results - last 24 hr 11/25/18 11/25/18 11/25/18 10:40 15:53 15:53 WBC RBC Hgb Hct MCV MCH MCHC RDW Plt Count Neut % (Auto) Lymph % (Auto) [place] % (Auto) Eos % (Auto) Baso % (Auto) Neut # (Auto) Lymph # (Auto) [place] # (Auto) Eos # (Auto) Baso # (Auto) Sodium Potassium Chloride Carbon Dioxide BUN Creatinine Estimated GFR BUN/Creatinine Ratio Glucose Lactate 4.8 H* Calcium Magnesium B-Natriuretic Peptide < 100 Nasal Screen MRSA (PCR) Negative for mrsa 11/25/18 11/25/18 11/26/18 15:53 18:20 05:15 WBC 17.6 H D RBC 4.42 Hgb 13.4 Hct 39.1 MCV 88.6 MCH 30.4 MCHC 34.3 RDW 13.1 Plt Count 262 Neut % (Auto) 90.8 H Lymph % (Auto) 4.2 L [place] % (Auto) 4.9 Eos % (Auto) 0.0 L Baso % (Auto) 0.1 Neut # (Auto) 37247 H Lymph # (Auto) 700 L [place] # (Auto) 900 Eos # (Auto) 0 Baso # (Auto) 0 Sodium 132 L Potassium 3.4 Chloride 97 L Carbon Dioxide 24 BUN Creatinine Estimated GFR BUN/Creatinine Ratio Glucose Lactate 2.1 Calcium Magnesium B-Natriuretic Peptide Nasal Screen MRSA (PCR) 11/26/18 11/26/18 05:15 05:15 WBC RBC Hgb Hct MCV MCH MCHC RDW Plt Count Neut % (Auto) Lymph % (Auto) [place] % (Auto) Eos % (Auto) Baso % (Auto) Neut # (Auto) Lymph # (Auto) [place] # (Auto) Eos # (Auto) Baso # (Auto) Sodium 132 L Potassium 3.7 Chloride 97 L Carbon Dioxide 28 BUN 22 H Creatinine 1.30 H Estimated GFR 41.5 L BUN/Creatinine Ratio 16.9 Glucose 129 H Lactate Calcium 7.8 L Magnesium 1.7 B-Natriuretic Peptide Nasal Screen MRSA (PCR) Assessment & Plan Assessment & Plan narrative: 63F POD 1 s/p exlap for complete sigmoid obstruction with contained cecal perforation and numerous serosal tears to right colon. s/p R hemicolectomy, sigmoid colon resection, EEA side-to-end stapled colorectal anastomosis, stapled [id number] functional end-to-end ileo colic anastomosis, with diverting loop ileostomy, right ovary removed as well appeared abnormal. Grossly appeared to be diverticular disease. Awaiting pathology Now doing reasonably well within the ICU Neuro: thoracic epidural, apap, gabapentin Pulm: No issues, oxygentating well CV: No issues mild tackycardia from surgical stress GI: awaiting ileostomy output, continue NGT today - output diminishing, Ostomy consulted to begin teaching. Awaiting pathology : leave drain in place until discharge and loza in place for 1 week to protect what may have been a subclinical/early colovessicle fistula ID: significant intra peritoneal contamination day 2/ IV abx with pip/lenora Endo: glucose in range FEN: LR 100, repleting K and Mag, NPO but meds with sips Proph; Heparin SQ Quality VTE Deep Vein Thrombosis/Pulmonary Embolism Present on Admission: No
--- NOTE | 2018-11-26 09:10 | P.PN_ITS ---
Subjective Date Patient Seen: 11/26/18 Time Patient Seen: 09:04 Interval history: Doing quite well this morning Making adequate urine Pain well controlled with thoracic epidural Has yet to mobilize Exam Vital Signs (past 8 hours): - 11/26/18 01:08 11/26/18 02:00 11/26/18 02:52 Temperature 98.2 F Pulse Rate 104 H 108 H Respiratory Rate 14 18 Blood Pressure 133/82 Pulse Oximetry 94 95 11/26/18 03:00 11/26/18 04:00 11/26/18 05:00 Temperature 98.6 F Pulse Rate 119 H 109 H 103 H Respiratory Rate 14 16 12 Blood Pressure 128/77 115/70 107/66 Pulse Oximetry 93 93 95 11/26/18 06:00 11/26/18 07:00 Temperature Pulse Rate 106 H 108 H Respiratory Rate 16 17 Blood Pressure 117/77 132/87 Pulse Oximetry 95 93 Oxygen Delivery Method Nasal Cannula Oxygen Flow Rate 1 Narrative Exam Narrative: Last 10 hours Uop 425 NG tube output now fallen significantly -clear Pelvic Drain with serous output Well-appearing no acute distress Breathing comfortably on minimal oxygen Regular tachycardia at 108 Abdomen soft minimally tender, ileostomy pink, minimal amount of straw-colored sweat within appliance, no gas in applying Open abdominal skin -pink, no adjacent induration or erythema, packed wet-to-dry with Kerlix Periphery warm and well perfused Objective Labs Result Diagrams: 11/26/18 05:15 11/26/18 05:15 Labs: Laboratory Results - last 24 hr 11/25/18 11/25/18 11/25/18 10:40 15:53 15:53 WBC RBC Hgb Hct MCV MCH MCHC RDW Plt Count Neut % (Auto) Lymph % (Auto) [place] % (Auto) Eos % (Auto) Baso % (Auto) Neut # (Auto) Lymph # (Auto) [place] # (Auto) Eos # (Auto) Baso # (Auto) Sodium Potassium Chloride Carbon Dioxide BUN Creatinine Estimated GFR BUN/Creatinine Ratio Glucose Lactate 4.8 H* Calcium Magnesium B-Natriuretic Peptide < 100 Nasal Screen MRSA (PCR) Negative for mrsa 11/25/18 11/25/18 11/26/18 15:53 18:20 05:15 WBC 17.6 H D RBC 4.42 Hgb 13.4 Hct 39.1 MCV 88.6 MCH 30.4 MCHC 34.3 RDW 13.1 Plt Count 262 Neut % (Auto) 90.8 H Lymph % (Auto) 4.2 L [place] % (Auto) 4.9 Eos % (Auto) 0.0 L Baso % (Auto) 0.1 Neut # (Auto) 18198 H Lymph # (Auto) 700 L [place] # (Auto) 900 Eos # (Auto) 0 Baso # (Auto) 0 Sodium 132 L Potassium 3.4 Chloride 97 L Carbon Dioxide 24 BUN Creatinine Estimated GFR BUN/Creatinine Ratio Glucose Lactate 2.1 Calcium Magnesium B-Natriuretic Peptide Nasal Screen MRSA (PCR) 11/26/18 11/26/18 05:15 05:15 WBC RBC Hgb Hct MCV MCH MCHC RDW Plt Count Neut % (Auto) Lymph % (Auto) [place] % (Auto) Eos % (Auto) Baso % (Auto) Neut # (Auto) Lymph # (Auto) [place] # (Auto) Eos # (Auto) Baso # (Auto) Sodium 132 L Potassium 3.7 Chloride 97 L Carbon Dioxide 28 BUN 22 H Creatinine 1.30 H Estimated GFR 41.5 L BUN/Creatinine Ratio 16.9 Glucose 129 H Lactate Calcium 7.8 L Magnesium 1.7 B-Natriuretic Peptide Nasal Screen MRSA (PCR) Assessment & Plan Assessment & Plan narrative: 63F POD 1 s/p exlap for complete sigmoid obstruction with contained cecal perforation and numerous serosal tears to right colon. s/p R hemicolectomy, sigmoid colon resection, EEA side-to-end stapled colorectal anastomosis, stapled [id number] functional end-to-end ileo colic anastomosis, with diverting loop ileostomy, right ovary removed as well appeared abnormal. Grossly appeared to be diverticular disease. Awaiting pathology Now doing reasonably well within the ICU Neuro: thoracic epidural, apap, gabapentin Pulm: No issues, oxygentating well CV: No issues mild tackycardia from surgical stress GI: awaiting ileostomy output, continue NGT today - output diminishing, Ostomy consulted to begin teaching. Awaiting pathology : leave drain in place until discharge and loza in place for 1 week to protect what may have been a subclinical/early colovessicle fistula ID: significant intra peritoneal contamination day 2/ IV abx with pip/lenora Endo: glucose in range FEN: LR 100, repleting K and Mag, NPO but meds with sips Proph; Heparin SQ Quality VTE Deep Vein Thrombosis/Pulmonary Embolism Present on Admission: No
--- NOTE | 2018-11-26 11:07 | PT.IIE ---
Current Diagnoses Diverticulitis of large intestine with perforation and abscess without bleeding (11/24/18) Surgery Performed Operation Date: 11/25/18 00:35 Actual Procedures p Exploratory Laparotomy GEN, right hemicolectomy, abdominal washout, sigmoid colectomy: beni, colorectal anastomosis, loop ileostomy, catecholization of greater omentum - Leonid Silvestre MD Medical History (Last Reviewed 11/25/18 @ 06:32 by Kayode Moore DO) Anxiety (Acute) Obesity (Acute) Physical Therapy Inpatient Evaluation/Re-Eval M1 PT/OT-IP Prior Functional Status Start: 11/25/18 14:31 Freq: NEEDED Status: Active Protocol: Document 11/26/18 11:07 AB (Rec: 11/26/18 12:00 AB [id number]) Medical Review Prior Functional Status Medical History Reviewed Yes Communication able to make needs known Mobility and Gait pt stated that she is independent with all mobilities and ambulation without AD Social History Household Members none Living Arrangements House Number of Floors (Floors) One Floor Number of Stairs To Enter/Railing? no steps to enter Home Environment High Toilet Walk in Shower Additional Social History Comment pt stated that she has friends that can assist her but not stay with her M2 PT-IP Current Condition Start: 11/25/18 14:31 Freq: NEEDED Status: Active Protocol: Document 11/26/18 11:07 AB (Rec: 11/26/18 12:00 AB [id number]) Physical Therapy Current Condition Current Condition Evaluation Date 11/26/18 Treatment Diagnosis large bowel obstruction s/p ex -lap and hemicolectomy; generalized weakness Onset Date 11/24/18 Precautions Abdominal Surgery Precautions Log Roll Lifting Restrictions Gait Belt above Incisional Area M3 PT-IP Subjective Start: 11/25/18 14:31 Freq: NEEDED Status: Active Protocol: Document 11/26/18 11:07 AB (Rec: 11/26/18 12:00 AB [id number]) Subjective Physical Therapy Visit Type Type Initial Evaluation Visit Start Time 11:07 Visit Stop Time 11:44 Total Visit Minutes 37 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 Physical Therapy Visit Comments Patient Comments pt agreeable to do PT Therapy Pain Assessment Pain When Pain Assessed At Rest Pain Present Pain Present Pain Reported Location Abdomen Intensity 2 Scale Used increased to 4/10 with mobility Pain Management Techniques Re-positioning Timing of Activity with Medications M4 PT-IP Mobility and Gait Start: 11/25/18 14:31 Freq: NEEDED Status: Active Protocol: Document 11/26/18 11:07 AB (Rec: 11/26/18 12:00 AB [id number]) PT-Bed Mobility Assessment Rolling Type of Rolling Log Rolling Level of Assist Maximal Assistance Supine to Sit Supine to Sit Maximum Assistance 1 Person Assistance Bedrails Scooting Scooting to Edge of Bed Standby Assistance PT-Transfer Assessment Sit to and From Stand Sit to and from Stand Contact Guard Assistance Equipment Transfer Assistive Device Gait Belt Front Wheeled Walker Orthotic/Prosthetic Devices or Brace: No Transfers Transfer Destination Chair Transfer Technique Stand Step Pivot Transfer Ability Level of Assist Contact Guard Assistance 1 Person Assistance Use of Upper Extremities Gait Assessment Gait Gait Assistance Required: Contact Guard Assist Distance (Feet) 3 Able to Maintain Weight Bearing Status Yes During Gait Assistive Devices Assistive Device Gait Belt Front Wheeled Walker Orthotic/Prosthetic Devices or Brace: No Gait Deviations General Gait Pattern Decreased Stride Length Decreased Feet Clearance Factors Limiting Gait Function Factors Limiting Gait Function Decreased Activity Tolerance Pain Comments Gait Comments pt completed ambulation using FWW ~ 3 ft forward and back CGA. ambulation limited due to NG tube . PT-Balance Assessment Sitting Balance and Reactions Static Sitting Balance Ability Good Dynamic Sitting Balance Ability Good Standing Balance and Reactions Static Standing Balance Ability Fair Dynamic Standing Balance Ability Fair Device Used FWW M5 PT-IP Objective Assessments Start: 11/25/18 14:31 Freq: NEEDED Status: Active Protocol: Document 11/26/18 11:07 AB (Rec: 11/26/18 12:00 [id number]) Orientation Orientation/Cognition Level of Alertness Alert Orientation Name Age Place Situation Language Function Ability No Deficits Noted Safety Awareness Understands Safety Issues Memory Description No Deficits Noted Gross Range of Motion Lower Extremity ROM Assessment Within Functional Limits Strength Lower Extremity Strength Assessment Within Functional Limits Coordination Assessment Gross Coordination Gross Coordination WNL Sensation Assessment Sensation Gross Sensation WNL Muscle Tone Muscle Tone WNL Yes M6 PT-IP Treatment Start: 11/25/18 14:31 Freq: NEEDED Status: Active Protocol: Document 11/26/18 11:07 AB (Rec: 11/26/18 12:00 AB [id number]) Physical Therapy Treatment Education Education Provided Precautions Safety M7 PT-IP Assessment and Plan Start: 11/25/18 14:31 Freq: NEEDED Status: Active Protocol: Document 11/26/18 11:07 AB (Rec: 11/26/18 12:00 AB [id number]) PT Summary Assessment and Plan Potential Rehabilitation Potential Good Status of Condition at Evaluation Stable Summary Impairments Pain ROM Strength Balance Coordination Sensation Tone Cognition Bed Mobility Transfers Gait Activity Tolerance Assessment Summary pt requiring max A with bed mobility and CGA with transfers and ambulation using FWW. pt will likely progress in function during hospital stay. will continue to assess progress for safe d/c plan. Goals Bed Mobility Goal Standby Assistance Transfer Goal Independent Front Wheeled Walker Gait Goal Independent Front Wheel Walker Gait Distance 200 Other Goals to improve ambulation ~ 250 ft least restrictive AD or without AD Days to Meet Goals 10 Frequency of Treatment Frequency Of Treatment Once a Day Treatment Plan Physical Therapy Treatment Plan Bed Mobility Training Transfer Training Gait Training Therapeutic Exercise Balance Retraining Post Op Education Discharge Planning Hot or Cold Pack Neuromuscular Re-ed Coordination Retraining Manual Therapy Other Recommendations and Next Treatment bed mobility, transfers, Focus ambulation Recommendations To Nursing Amount of Assist Needed 1 Person Assist Discharge Recommendations PT Discharge Recommendations Home with Assistance Home Health Equipment Needed for Home Before FWW if not safe with other AD/ Discharge without AD
--- NOTE | 2018-11-26 12:13 | CM.DPNOTE ---
DCP Cont: Reviewed chart. Pt now POD#1 s/p extensive abd surgery w/ Dr Silvestre. Awaiting pathology. Spoke w/ANNMARIE Shepherd, pt now up to bedside chair for the first time which went well. Friend Kyra at bedside. Pt is expected to remain admitted at least through the weekend and likely through early next week. Pt very hopeful she will go home w/assist from her friends. Medical POC still unfolding as pt is only POD#1 from surgery and Ostomy nurse Khadijah Funes will begin teaching re: care of new Ostomy. Wound vac (?) Following closely for coordination of safe DCP as medical management continues in ICU. Pt has [employer]/Medicaid; this INTERNET SALES DIRECTOR hopeful pt can return home when medically cleared as she is very active and indp. at baseline. DUONG Parsons
--- NOTE | 2018-11-26 14:06 | PC.NURSE ---
Pt noted to have fluid leaking from L AC PIV site and c/o pain to L Hand PIV site. Mult attempts by 3 seperate RNs to initiate IV access unsuccessful. Pt tolerated well and is in no acute distress. Clarified with Dr. Silvestre regarding type of IV access preferred/necessary. Order received to place PICC line. Called to DI RN and notified of order for PICC.
--- NOTE | 2018-11-26 14:29 | PC.NURSE ---
Am shift Pt is A/o x4, bright and conversing with staff, denies pain at rest, Epidural of fentayl and bupivicane is running @ 1mls/hr . BP has improved since this RN's assesse 24 hours prior, VSS stable. reports of minimal need for additional pain control, until packing removed from dressing. IV Dilaudid pushed. No nausea, minimal BT noted. Ice chips per order. NG to LIS, pink tinted collection, from APAP given via tube. Pt denies discomfort and tolerated increased epidural rates for better pain control. Currently infusing @ 6mls/hr. Pt has been doing well and was able to ambulate to chair with PT. ABD binder remains in place. Per surgery, enc ambulation as much as possible, within room. Pt is having trouble with IV access , L AC removed, and L wrist is quite sore. Discussed with Dr Gordillo and order for PICC obtained. Illeostomy has scant serosang drainagage as documented. BT hypoactive. No flatus. Orders for BID Wet to dry dressing changes, and this may need premedication. VSS.
--- NOTE | 2018-11-26 16:58 | PC.NURSE ---
Ostomy Nurse Note Erinn sitting up in the recliner chair. She is awake and alert. She remembered seeing me yesterday as I briefly introduced myself. He ileostomy is edematous, moist and beefy red. She has some serousanguenous drainage. There is no gas visible in the pouch. Her mid-line dressing is intact. I gave her the [facility] New Patient Guide Book and she said she would start to review it this evening. I told her we would be going over how to care for her ileostomy then next several days. She lives on [address] and does not have a partner or SO. She said that she is hoping to go to a SNF after discharge. She has several good girl friends that will be able to help her when she gets home and in fact they are thinking that she should sell her house and move on the property with one of them. They also suggest that they set up a go fund me page. I asked if any of her friends would be available to help with her ostomy care and she said she has a friend that will be willing to learn how to help with her stoma care. I am not sure if Erinn will require a wound vac to assist with her mid-line incisional wound to promote granulation. If surgery would like we could follow her wound and ostomy care at the wound care center. I will be back tomorrow to change out the ostomy appliance.
[2018-11-26] MEDS: BUPIV 0.125% EPIDURAL (17:29)
[2018-11-26] MEDS: EPI EPIDURAL (17:29)
[2018-11-26] MEDS: FENT 2 MCG/ML EPIDURAL (17:29)
--- NOTE | 2018-11-26 17:50 | DI.RAD.S_ITS ---
PROCEDURE: XR CHEST 1V INDICATIONS: PICC placement TECHNIQUE: One view of the chest was acquired. COMPARISON: [facility], CR, XR CHEST 1V, 11/25/2018, 14:19. FINDINGS: Surgical changes and devices: -New right-sided PICC with the tip terminating at the cavoatrial junction. -Enteric tube terminating in the stomach. Lungs and pleura: Mild bibasilar hazy opacity most compatible with atelectasis. Low lung volumes. No pleural effusions or pneumothorax. Mediastinum: Mediastinal contours appear normal. Heart size is normal. Bones and chest wall: No suspicious bony lesions. Overlying soft tissues appear unremarkable. IMPRESSION: Newly placed right-sided PICC with the tip terminating at the cavoatrial junction. No pneumothorax. Dictated by: Timothy Alanis M.D. on 11/26/2018 at 18:48 Approved by: Timothy Alanis M.D. on 11/26/2018 at 18:49
[2018-11-26] MEDS: LACTATED RINGERS 1,000 ML 1000 ML IV (19:38)
[2018-11-26] MEDS: GABAPENTIN 400 MG CAPSULE 800 MG PO (20:34)
--- NOTE | 2018-11-26 21:35 | PC.NURSE ---
Dr. Hong notified of pt's 7 beat run of VTACH at 20:49. Read back recent labs to MD. Pt stable, no cardiac symptoms, now NSR 90's with no ectopy. Sending Troponin per verbal order from MD. Will call only for abnormal results and will monitor pt for any further ectopy. Pt's abdominal dressing changed. All five pockets/wounds clean, no s/s infection, bright pink. Packed with wet kurlex and gauze to upper wound. ABD placed over. Pt tolerated dressing change well. premedicated with IV Dilaudid. Education given on s/s infection, risk fo infection with wound and need to be OOB to chair, use IS, etc. Using IS q1hr well.
[2018-11-26 22:19] LABS: Troponin I < 0.012 ng/mL (0.01-0.034)
[2018-11-27] VITALS (20 sets, daily range): BP systolic 81–121; BP diastolic 39–68; PULSE 79–106; RESP 12–20; TEMP 36.5–37; O2SAT 90–99
[2018-11-27] MEDS: ACETAMINOPHEN SUSP 650 MG/20.3 ML UDC TUBE ×4 (00:31→17:31)
[2018-11-27] MEDS: PIPERACILLIN-TAZO 3.375 GM/50 ML FROZ.PIGGY IV ×5 (00:31→22:02)
--- NOTE | 2018-11-27 00:38 | P.CONS_ITS ---
History of Present Illness Date Patient Seen: 11/27/18 Time Patient Seen: 00:15 Chief complaint: SENT BY MD - POSSIBLE APPENDICITIS Reason for consult: Tachycardia Requesting provider: Roshan Hong Narrative: Erinn Helm is a 63-year-old female, is pod #2 status post right hemicolectomy, sigmoid colon resection, colorectal anastomosis, ileocolic anastomosis with diverting loop ileostomy, and right ovarian removal. The hospitalist service is requested to evaluate the patient due to having runs of tachycardia over the evening. ICU indicated she was having 6-7 beat runs in the 110s, and she an EKG indicated sinus tachycardia with a heart rate of 108. The patient does not have any family history of tachycardia though she did state that one of her family members did passed of a AR. She currently does not take any medications for chronic conditions. Patient denies chest pain, shortness of breath, she has an NG-tube in place, she has mild abdominal pain that is well controlled through her epidural, current late not producing stool is yet. She does feel that her palpitations are due to staff coming in and interrupting her sleep. [facility] Medical History (Updated 11/27/18 @ 00:44 by JU Vizcarra) Anxiety (Acute) Large bowel obstruction (Acute) Obesity (Acute) Surgical History (Updated 11/27/18 @ 00:44 by JU Vizcarra) History of resection of large bowel (Acute) Social History household members: none Smoking Status: Never smoker alcohol intake: current Social History household members: none Smoking Status: Never smoker alcohol intake: current Meds Home Medications Medication Instructions Recorded Confirmed Type diazepam 5 mg PO PRN PRN 11/24/18 11/25/18 History Allergies Allergy/AdvReac Type Severity Reaction Status Date / Time No Known Drug Allergies Allergy Verified 11/24/18 22:20 Review of Systems Review of Systems All systems reviewed & are unremarkable except as noted in HPI and below Exam Vital Signs (past 8 hours): - 11/26/18 18:00 11/26/18 19:00 11/26/18 20:00 Temperature 98.8 F Pulse Rate 105 H 100 H 98 H Respiratory Rate 18 Blood Pressure 113/66 115/71 134/54 L Pulse Oximetry 11/26/18 21:00 11/26/18 22:00 11/26/18 23:24 Temperature 98.3 F Pulse Rate 98 H 96 H 98 H Respiratory Rate 20 Blood Pressure 126/58 L 144/62 H 90/49 L Pulse Oximetry 97 11/27/18 00:13 Temperature Pulse Rate 106 H Respiratory Rate 14 Blood Pressure 81/39 L Pulse Oximetry 96 Oxygen Delivery Method Nasal Cannula Oxygen Flow Rate 1 Narrative Exam Narrative: Gen: Alert, oriented, morbidly obese 63 y.o. female, who appears comfortable considering the circumstances HEENT: normocephalic, atraumatic, conjunctiva clear, sclera non-icteric, oral mucosa pink and moist Neck: supple, full ROM Resp: Lungs CTA, non-labored breathing CV: Tachycardic and regular, no murmur or rubs Abd: soft, non-tender, NG tube in place draining speckled clear liquid Skin: no lesions or rashes, dry and intact Neuro: Alert and oriented X 4 w/no focal deficits Extremities: moves all 4 extremities, is ambulatory, negative Chong?s sign Psyche: normal mood and affect. Objective ECG Impression: Sinus tachycardia, interpreted by me. Labs Result Diagrams: 11/27/18 00:19 11/27/18 00:19 Labs: Laboratory Results - last 24 hr 11/26/18 11/26/18 11/26/18 05:15 05:15 05:15 WBC 17.6 H D RBC 4.42 Hgb 13.4 Hct 39.1 MCV 88.6 MCH 30.4 MCHC 34.3 RDW 13.1 Plt Count 262 Neut % (Auto) 90.8 H Lymph % (Auto) 4.2 L [place] % (Auto) 4.9 Eos % (Auto) 0.0 L Baso % (Auto) 0.1 Neut # (Auto) 83964 H Lymph # (Auto) 700 L [place] # (Auto) 900 Eos # (Auto) 0 Baso # (Auto) 0 Sodium 132 L Potassium 3.7 Chloride 97 L Carbon Dioxide 28 BUN 22 H Creatinine 1.30 H Estimated GFR 41.5 L BUN/Creatinine Ratio 16.9 Glucose 129 H Calcium 7.8 L Magnesium 1.7 Troponin I 11/26/18 21:35 WBC RBC Hgb Hct MCV MCH MCHC RDW Plt Count Neut % (Auto) Lymph % (Auto) [place] % (Auto) Eos % (Auto) Baso % (Auto) Neut # (Auto) Lymph # (Auto) [place] # (Auto) Eos # (Auto) Baso # (Auto) Sodium Potassium Chloride Carbon Dioxide BUN Creatinine Estimated GFR BUN/Creatinine Ratio Glucose Calcium Magnesium Troponin I < 0.012 Assessment & Plan Assessment & Plan narrative: 1. POD #2 Large bowel resection and anastamosis * Primary is General Surgery 2. Tachycardia, hypotension concerning for sepsis * Review of the patient's chart indicated that she appeared to have a rising white count early on November 26. * Repeat CBC, lactate, magnesium, and a basic metabolic panel. * White count is improved to 13,000. * Chemistries are currently pending. * If there are any electrolyte abnormalities we will correct as needed. 3. Electrolyte abnormalities * Hypermagnemesia now at 2.7, she did receive four grams of magnesium, I have increased her fluid rate to decrease serum magnesium * Hypokalemia, she remains on an LR infusion and have increased the rate from 100 to 150 mls/hour. Will add oral potassium if she remains low in the am. * Hypocalcemia, likely a result of excess magnesium and should correct after her magnesium levels normalize. * Hyponatremia, this should normalize with the increase in the rate of LR. We will continue to follow and please do not hesitate to call us if any questions. We appreciate the opportunity to consult and assist in the care of your patient. Time Spent With Patient Time with patient: less than 15 minutes
[2018-11-27 00:41] LABS: Hematocrit 32.5 % (36-46); Hemoglobin 10.9 g/dL (12.0-16.0); Mean Corpuscular HGB Conc 33.5 % (30-36); Mean Corpuscular Hemoglobin 29.5 PG (26-34); Mean Corpuscular Volume 87.9 fL (80-100); Platelet Count 231 X10^3/uL (150-400); Red Blood Cell Count 3.69 X10^6/uL (4.0-5.2); Red Cell Distribution Width 13.4 % (11.6-14.8); White Blood Cell Count 14.1 X10^3/uL (4.5-11.0)
[2018-11-27 00:43] LABS: Neutrophils Absolute Manual 12408 /uL (3000-5900); RBC Morphology Normal Morphology; Total Cells Counted 100
[2018-11-27 00:59] LABS: Lactate (Lactic Acid) 0.7 mmol/L (0.7-2.1)
[2018-11-27 01:00] LABS: BUN Creatinine Ratio 23.3 (6-22); Blood Urea Nitrogen 21 mg/dL (7-17); Calcium 7.7 mg/dL (8.4-10.2); Carbon Dioxide 30 mmol/L (22-32); Chloride 99 mmol/L (98-107); Estimated Glomerular Filt Rate > 60.0 mL/min (>60); Glucose 98 mg/dL (80-110); HEMOLYSIS < 15 (0-50); Magnesium 2.7 mg/dL (1.6-2.3); Potassium 3.4 mmol/L (3.4-5.1); Sodium 132 mmol/L (137-145)
[2018-11-27 03:54] LABS: Blood Urea Nitrogen 19 mg/dL (7-17); Calcium 7.7 mg/dL (8.4-10.2); Carbon Dioxide 33 mmol/L (22-32); Chloride 99 mmol/L (98-107); Estimated Glomerular Filt Rate 56.2 mL/min (>60); Glucose 95 mg/dL (80-110); HEMOLYSIS < 15 (0-50); Magnesium 2.7 mg/dL (1.6-2.3); Potassium 3.3 mmol/L (3.4-5.1); Sodium 133 mmol/L (137-145)
[2018-11-27 04:06] LABS: Troponin I 0.019 ng/mL (0.01-0.034)
[2018-11-27 04:19] LABS: Add Manual Diff / Slide Review NO; Basophils Absolute Auto 0 /uL (0-100); Basophils Percent Auto 0.1 % (0-2); Eosinophils Absolute Auto 0 /uL (0-450); Eosinophils Percent Auto 0.2 % (2-4); Hematocrit 28.7 % (36-46); Hemoglobin 9.9 g/dL (12.0-16.0); Lymphocytes Absolute Auto 1000 /uL (1100-4500); Lymphocytes Percent Auto 7.6 % (25-40); Mean Corpuscular HGB Conc 34.3 % (30-36); Mean Corpuscular Hemoglobin 30.3 PG (26-34); Mean Corpuscular Volume 88.3 fL (80-100); Monocytes Absolute Auto 600 /uL (0-900); Monocytes Percent Auto 4.9 % (3-14); Neutrophils Absolute Auto 10800 /uL (1500-7000); Neutrophils Percent Auto 87.2 % (50-75); Platelet Count 213 X10^3/uL (150-400); Red Blood Cell Count 3.26 X10^6/uL (4.0-5.2); Red Cell Distribution Width 13.1 % (11.6-14.8); White Blood Cell Count 12.4 X10^3/uL (4.5-11.0)
--- NOTE | 2018-11-27 04:53 | PC.NURSE ---
NOC Note: At the start of the shift, pt had a 6 beat run of Vtach, Dr. Hong notified. Hospitalist in for consult, EKG done and Labs drawn per orders. Hospitalist is aware of results. BT are absent. Lungs are clear. IVF running as ordered. Epidural site is intact and pt has full sensation in BLE. NG to LIS, green/brown output, loza with sara urine. TEDS in place. ABD binder in place. Ostomy with small amount of liquid output. Tele was ST and SR.
[2018-11-27] MEDS: LACTATED RINGERS 1,000 ML 150 ML IV ×2 (05:51→13:55)
[2018-11-27] MEDS: HEPARIN 5,000 UNIT/ML VIAL 5000 UNIT SUBCUT ×3 (06:09→21:22)
--- NOTE | 2018-11-27 09:28 | PM.PNPO.1 ---
Subjective Date Patient Seen: 11/27/18 Time Patient Seen: 09:28 Interval history: Patient postop left and right colon resections with primary anastomosis and diverting ileostomy. She has begun to have gas and stool on her ostomy. Pain is well controlled. Breathing well. No cough. Exam Vital Signs (past 8 hours): - 11/27/18 02:02 11/27/18 03:06 11/27/18 04:09 Temperature Pulse Rate 93 H 86 92 H Respiratory Rate 13 13 13 Blood Pressure 89/57 L 89/55 L 100/57 L Pulse Oximetry 97 98 97 11/27/18 05:15 11/27/18 06:23 11/27/18 07:00 Temperature 98.6 F Pulse Rate 81 91 H 81 Respiratory Rate 12 16 13 Blood Pressure 100/50 L 94/52 L 100/53 L Pulse Oximetry 98 97 97 11/27/18 07:36 Temperature 98.3 F Pulse Rate Respiratory Rate Blood Pressure Pulse Oximetry Oxygen Delivery Method Nasal Cannula Oxygen Flow Rate 2.5 Narrative Exam Narrative: Operative no apparent distress. Lungs clear with good effort. Heart regular rate and rhythm. Murmur 2/6 systolic heard best at the left sternal border without radiation into the neck. Abdomen is morbidly protuberant soft. The wounds look great. No cellulitis. Ostomy is viable with small amount of stool in the bag. She has put out 600 cc of urine over the last 9 hours. Creatinine is back down to 1. Slightly hypokalemic. Hyper magnesemic. White count improving. Objective Labs Result Diagrams: 11/27/18 03:30 11/27/18 03:30 Labs: Laboratory Results - last 24 hr 11/26/18 11/27/18 11/27/18 21:35 00:19 00:19 WBC Cancelled RBC Hgb Hct MCV MCH MCHC RDW Plt Count Neut % (Auto) Cancelled Lymph % (Auto) Cancelled [place] % (Auto) Cancelled Eos % (Auto) Cancelled Baso % (Auto) Cancelled Neut # (Auto) Cancelled Lymph # (Auto) [place] # (Auto) Eos # (Auto) Baso # (Auto) Total Counted Seg Neutrophils % Lymphocytes % (Manual) Monocytes % (Manual) Neutrophils # (Manual) RBC Morphology Sodium Potassium Chloride Carbon Dioxide BUN Creatinine Estimated GFR BUN/Creatinine Ratio Glucose Lactate 0.7 Calcium Magnesium Troponin I < 0.012 11/27/18 11/27/18 11/27/18 00:19 00:19 00:19 WBC 14.1 H RBC 3.69 L Hgb 10.9 L Hct 32.5 L MCV 87.9 MCH 29.5 MCHC 33.5 RDW 13.4 Plt Count 231 Neut % (Auto) Lymph % (Auto) [place] % (Auto) Eos % (Auto) Baso % (Auto) Neut # (Auto) Lymph # (Auto) [place] # (Auto) Eos # (Auto) Baso # (Auto) Total Counted 100 Seg Neutrophils % 88.0 H Lymphocytes % (Manual) 7.0 L Monocytes % (Manual) 5.0 Neutrophils # (Manual) 70471 H RBC Morphology Normal morphology Sodium 132 L Potassium 3.4 Chloride 99 Carbon Dioxide 30 BUN 21 H Creatinine 0.90 Estimated GFR > 60.0 BUN/Creatinine Ratio 23.3 H Glucose 98 Lactate Calcium 7.7 L Magnesium 2.7 H Troponin I 11/27/18 11/27/18 11/27/18 03:30 03:30 03:30 WBC 12.4 H RBC 3.26 L Hgb 9.9 L Hct 28.7 L MCV 88.3 MCH 30.3 MCHC 34.3 RDW 13.1 Plt Count 213 Neut % (Auto) 87.2 H Lymph % (Auto) 7.6 L [place] % (Auto) 4.9 Eos % (Auto) 0.2 L Baso % (Auto) 0.1 Neut # (Auto) 23947 H Lymph # (Auto) 1000 L [place] # (Auto) 600 Eos # (Auto) 0 Baso # (Auto) 0 Total Counted Seg Neutrophils % Lymphocytes % (Manual) Monocytes % (Manual) Neutrophils # (Manual) RBC Morphology Sodium 133 L Potassium 3.3 L Chloride 99 Carbon Dioxide 33 H BUN 19 H Creatinine 1.00 Estimated GFR 56.2 L BUN/Creatinine Ratio 19.0 Glucose 95 Lactate Calcium 7.7 L Magnesium 2.7 H Troponin I 0.019 Assessment & Plan Post-op Postoperative Procedures Operation Date: 11/25/18 00:35 Actual Procedures Side Surgeon p Exploratory Laparotomy GEN, right hemicolectomy, abdominal washout, sigmoid colectomy: beni, colorectal anastomosis, loop ileostomy, catecholization of greater omentum Leonid Silvestre MD Postoperative status narrative: Actually doing fairly well. She had some runs of V-tach last night and I asked our medical colleagues to see her. I have reviewed their note and appreciate their consult. Bowel function is beginning to return. Postoperative plan narrative: Will begin TPN. Maintain fluids for now at the present level. Correct electrolytes. Given reduction in pulses, white blood count, improvement of creatinine in we seem to be headed in the right direction. Continue wound care and present function. Monitor sugars once TPN starts. Sliding scale insulin ordered. Will also add lipids today. Quality VTE Deep Vein Thrombosis/Pulmonary Embolism Present on Admission: No
--- NOTE | 2018-11-27 09:41 | PT.IPTN ---
Current Diagnoses Diverticulitis of large intestine with perforation and abscess without bleeding (11/24/18) Surgery Performed Operation Date: 11/25/18 00:35 Actual Procedures p Exploratory Laparotomy GEN, right hemicolectomy, abdominal washout, sigmoid colectomy: beni, colorectal anastomosis, loop ileostomy, catecholization of greater omentum - Leonid Silvestre MD Physical Therapy Treatment Note M2 PT-IP Current Condition Start: 11/25/18 14:31 Freq: NEEDED Status: Active Protocol: Document 11/26/18 11:07 AB (Rec: 11/26/18 12:00 AB [id number]) Physical Therapy Current Condition Current Condition Evaluation Date 11/26/18 Treatment Diagnosis large bowel obstruction s/p ex -lap and hemicolectomy; generalized weakness Onset Date 11/24/18 Precautions Abdominal Surgery Precautions Log Roll Lifting Restrictions Gait Belt above Incisional Area M3 PT-IP Subjective Start: 11/25/18 14:31 Freq: NEEDED Status: Active Protocol: Document 11/27/18 09:41 AB (Rec: 11/27/18 10:51 AB [id number]) Subjective Physical Therapy Visit Type Type Treatment Note Visit Start Time 09:41 Visit Stop Time 10:14 Total Visit Minutes 35 Number of STUDENT DRIVING INSTRUCTOR Visits 0 Physical Therapy Visit Comments Patient Comments pt agreeable to do PT Therapy Pain Assessment Pain When Pain Assessed During Mobility Pain Present Pain Present Pain Reported Location Abdomen Scale Used pain scale not stated Pain Management Techniques Modification of Treatment Re-positioning Timing of Activity with Medications M4 PT-IP Mobility and Gait Start: 11/25/18 14:31 Freq: NEEDED Status: Active Protocol: Document 11/27/18 09:41 AB (Rec: 11/27/18 10:51 AB [id number]) PT-Bed Mobility Assessment Rolling Type of Rolling Log Rolling Level of Assist Maximal Assistance Supine to Sit Supine to Sit Maximum Assistance 1 Person Assistance Head of Bed Elevated Bedrails PT-Transfer Assessment Sit to and From Stand Sit to and from Stand Minimal Assistance 1 Person Assistance Equipment Transfer Assistive Device Gait Belt Front Wheeled Walker Orthotic/Prosthetic Devices or Brace: No Transfers Transfer Destination Chair Transfer Technique pt ambulated using FWW Transfer Ability Level of Assist Minimal Assistance Gait Assessment Gait Gait Assistance Required: Minimum Assistance Moderate Assistance Distance (Feet) 35 Able to Maintain Weight Bearing Status Yes During Gait Assistive Devices Assistive Device Gait Belt Front Wheeled Walker Orthotic/Prosthetic Devices or Brace: No Gait Deviations General Gait Pattern Decreased Stride Length Decreased Feet Clearance Factors Limiting Gait Function Factors Limiting Gait Function Decreased Activity Tolerance Decreased Strength Limited Range of Motion Pain Poor Balance Comments Gait Comments pt completed ambulation using FWW ~ 35 ft initially min A but care home requires mod A and slower edward. pt requires cues for posture and positioning. M5 PT-IP Objective Assessments Start: 11/25/18 14:31 Freq: NEEDED Status: Active Protocol: Document 11/26/18 11:07 AB (Rec: 11/26/18 12:00 AB [id number]) Orientation Orientation/Cognition Level of Alertness Alert Orientation Name Age Place Situation Language Function Ability No Deficits Noted Safety Awareness Understands Safety Issues Memory Description No Deficits Noted Gross Range of Motion Lower Extremity ROM Assessment Within Functional Limits Strength Lower Extremity Strength Assessment Within Functional Limits Coordination Assessment Gross Coordination Gross Coordination WNL Sensation Assessment Sensation Gross Sensation WNL Muscle Tone Muscle Tone WNL Yes M6 PT-IP Treatment Start: 11/25/18 14:31 Freq: NEEDED Status: Active Protocol: Document 11/27/18 09:41 AB (Rec: 11/27/18 10:51 AB [id number]) Physical Therapy Treatment Education Education Provided Safety M7 PT-IP Assessment and Plan Start: 11/25/18 14:31 Freq: NEEDED Status: Active Protocol: Document 11/27/18 09:41 AB (Rec: 11/27/18 10:51 AB [id number]) PT Summary Assessment and Plan Potential Rehabilitation Potential Good Summary Impairments Pain ROM Strength Balance Coordination Sensation Bed Mobility Transfers Gait Activity Tolerance Progress Towards Goals Slow Progress due to Medical Issues Slow Progress due to Activity Tolerance Assessment Summary pt requires max A for bed mobility and min to mod A for transfers and ambulation using FWW. pt continues to have decrease activity tolerance affecting mobility. d/c plan depending on progress but at this time may require SNF rehab. will continue to assess. Goals Bed Mobility Goal Standby Assistance Transfer Goal Independent Front Wheeled Walker Gait Goal Independent Front Wheel Walker Gait Distance 200 Other Goals to improve ambulation ~ 250 ft least restrictive AD or without AD Days to Meet Goals 10 Frequency of Treatment Frequency Of Treatment Once a Day Treatment Plan Physical Therapy Treatment Plan Bed Mobility Training Transfer Training Gait Training Therapeutic Exercise Balance Retraining Post Op Education Discharge Planning Hot or Cold Pack Neuromuscular Re-ed Coordination Retraining Manual Therapy Other Recommendations and Next Treatment bed mobility, transfers, Focus ambulation Recommendations To Nursing Amount of Assist Needed 1 Person Assist Discharge Recommendations PT Discharge Recommendations Home with Assistance Home Health Equipment Needed for Home Before FWW if not safe with other AD/ Discharge without AD
[2018-11-27] MEDS: FENT 2MCG/ML BUPIV 0.125% EPI 200 MCG/100 ML PLAST..BAG 6 MCG EPIDURAL (10:03)
[2018-11-27] MEDS: HYDROMORPHONE 0.5 MG INJ IV ×2 (13:01→20:12)
--- NOTE | 2018-11-27 14:16 | CM.DPNOTE ---
DCP Cont: Reviewed note by [place] RN this morning that explained that pt is hopeful she can DC to SNF for ongoing management of her new ostomy and possible wound vac. Pt will likely remain here at least until early next week. Met w/pt, reviewed DCP options. 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 Her work has been somewhat inconsistent and she has not always had very reliable benefits. She intends to sell her home soon with the intention of moving into a manufactured home on a friend's property. Pt's very good friend Kyra will not be available to assist her because she will be traveling this month and likely next month. Discussed SNF and pt asks this LABORATORY HELPER to research her options starting with [facility]. Pt intends to DC home w/support from friend Kyra and other good friends after SNF stay. Pt admits she feels anxious thinking about going straight home to [place] from here because resources are limited and she will be more isolated than she'd like right now. Placed call to Lyla at [facility] P# [phone], reviewed this referral. Lyla explained she would be happy to begin this auth process through [employer] and advocate on pt's behalf but she would wait until Friday since pt has been started on TPN and wound vac need is unclear (?) Placed call to Khadijah Funes RN, updated on above. Khadijah will need to reassess pt's wound/ostomy Friday to determine if she is a good candidate for a wound vac. If she is, [facility] will need to get pre-auth for wound vac, they use the same vendor as [facility]. Following closely for coordination of safe DCP for this pt w/ [employer] Medicaid, this LABORATORY HELPER hopeful pt can get authorized for SNF stay for ongoing skilled medical management, wound and ostomy care, and therapies for strengthening during her recovery. DUONG Parsons
[2018-11-27 14:43] LABS: Troponin I 0.012 ng/mL (0.01-0.034)
--- NOTE | 2018-11-27 15:03 | DIET.PN ---
Dietary Progress Note Assessment: 63y F s/p left and right colon resections with primary anastomosis and diverting ileostomy. Set up to receive PICC line and TPN. HT: 157.4cm WT: 118.4kg IBW: 50.1kg BMI: 46 (morbid obesity) EERs for TPN : 601-900 kcal (12-18kcal/kg IBW), 140g PRO (1.2g/kg), 1950mL fluids (Per [facility] reccs) Monitoring/Evaluations: TPN tolerance, PO advancement, wt, ass. labs
[2018-11-27] MEDS: DEXT IV (17:36)
[2018-11-27] MEDS: LYTES IV (17:36)
[2018-11-27] MEDS: POTASSIUM CHLORIDE IV (17:36)
[2018-11-27] MEDS: [UNRECOGNIZED DRUG - OTHER] IV (17:36)
[2018-11-27] MEDS: CALCIUM IV (17:36)
[2018-11-27] MEDS: FAT EMULSIONS 50 GM/250 ML EMULSION IV (17:37)
[2018-11-27] MEDS: POLYVINYL ALCOHOL DROPS 2 DROPS EYE-BOTH (18:00)
--- NOTE | 2018-11-27 19:49 | PC.NURSE ---
Wound Ostomy Nurse Note Spoke with Care Management,Cynthia today and she is working of referral to [facility] post discharge. Erinn in bed, awake and looks well. I changed her ileostomy appliance. Her stoma is pink, moist,edematous and well budded. There is one area of black tissue at the 11:00 position that will most likely slough off. She has liquid green effluent. Her eugenia-stomal skin is intact. I placed a 45mm Convatec Moldable wafer with an adaptor and a 45mm clear non-filtered pouch. She tolerated the procedure well, but did not look. I also assisted Lianna in her abd. incisional dressing. Normal Saline moist 4x4 were filled into each opened area. The eugenia-wound is without any redness or induration. The incisional wounds are mostly adipose tissue without granulation tissue. There was a small amount of serous drainage on the old 4x4 packing that was removed. I will return Friday to continue with ostomy teaching.
[2018-11-27] MEDS: GABAPENTIN 400 MG CAPSULE 800 MG PO (20:11)
--- NOTE | 2018-11-27 20:46 | PC.NURSE ---
1930 -Zeny from [facility] Care into change pt ileostomy wafer and pouch. Follow up with mid-line drsg change. Wound packed with NS moist gauze, covered with ABD pads. Wound bed pink with visible adipose tissue. Intermittent beni. Wound edges pink. Possible mild skin irritation under drainage pouch of ostomy. Monitor. Abd binder replaced. 2019 - Shortly after dressing change pt reports increased discomfort. Mostly in my lower stomach. Also reports an acid-like feeling. Pt slightly down in the bed. offered to reposition pt states no, I am pretty comfortable. Elevated HOB slightly. Monitor. Call light in reach.
[2018-11-27] MEDS: LACTATED RINGERS 1,000 ML 75 ML IV (22:03)
[2018-11-28] VITALS (11 sets, daily range): BP systolic 118–167; BP diastolic 62–90; PULSE 70–80; RESP 14–23; TEMP 36.8–37.1; O2SAT 87–98
[2018-11-28] MEDS: ACETAMINOPHEN SUSP 650 MG/20.3 ML UDC TUBE ×3 (00:25→12:18)
[2018-11-28] MEDS: HYDROMORPHONE 0.5 MG INJ IV ×4 (00:30→21:28)
[2018-11-28] MEDS: FENT 2MCG/ML BUPIV 0.125% EPI 200 MCG/100 ML PLAST..BAG 6 MCG EPIDURAL ×2 (01:25→17:36)
[2018-11-28 05:26] LABS: Add Manual Diff / Slide Review NO; Basophils Absolute Auto 0 /uL (0-100); Basophils Percent Auto 0.2 % (0-2); Eosinophils Absolute Auto 300 /uL (0-450); Eosinophils Percent Auto 2.4 % (2-4); Hematocrit 28.3 % (36-46); Hemoglobin 9.7 g/dL (12.0-16.0); Lymphocytes Absolute Auto 1300 /uL (1100-4500); Lymphocytes Percent Auto 11.9 % (25-40); Mean Corpuscular HGB Conc 34.3 % (30-36); Mean Corpuscular Hemoglobin 30.3 PG (26-34); Mean Corpuscular Volume 88.3 fL (80-100); Monocytes Absolute Auto 500 /uL (0-900); Monocytes Percent Auto 4.8 % (3-14); Neutrophils Absolute Auto 8800 /uL (1500-7000); Neutrophils Percent Auto 80.7 % (50-75); Platelet Count 205 X10^3/uL (150-400); Red Blood Cell Count 3.21 X10^6/uL (4.0-5.2); Red Cell Distribution Width 13.4 % (11.6-14.8); White Blood Cell Count 10.9 X10^3/uL (4.5-11.0)
[2018-11-28 05:34] LABS: Alanine Aminotransferase 26 IU/L (9-52); Albumin 2.3 g/dL (3.5-5.0); Alkaline Phosphatase 54 U/L (38-126); Aspartate Aminotransferase 43 IU/L (14-36); Bilirubin Total 0.6 mg/dL (0.2-1.3); Blood Urea Nitrogen 16 mg/dL (7-17); Calcium 7.6 mg/dL (8.4-10.2); Carbon Dioxide 33 mmol/L (22-32); Chloride 100 mmol/L (98-107); Estimated Glomerular Filt Rate > 60.0 mL/min (>60); Globulin 2.4 g/dL (1.7-4.1); Glucose 109 mg/dL (80-110); HEMOLYSIS < 15 (0-50); Magnesium 2.4 mg/dL (1.6-2.3); Potassium 3.3 mmol/L (3.4-5.1); Sodium 136 mmol/L (137-145); Total Protein 4.7 g/dL (6.3-8.2)
[2018-11-28] MEDS: PIPERACILLIN-TAZO 3.375 GM/50 ML FROZ.PIGGY IV ×4 (06:00→22:39)
[2018-11-28] MEDS: HEPARIN 5,000 UNIT/ML VIAL 5000 UNIT SUBCUT ×3 (06:22→21:23)
[2018-11-28] MEDS: POLYVINYL ALCOHOL DROPS 2 DROPS EYE-BOTH (06:35)
--- NOTE | 2018-11-28 07:06 | PC.NURSE ---
NOC Shift: Stable through shift, POD 3 large BOB. VSS, SR on tele. Continues with ICU care.
--- NOTE | 2018-11-28 11:30 | PT.IPTN ---
Current Diagnoses Diverticulitis of large intestine with perforation and abscess without bleeding (11/24/18) Surgery Performed Operation Date: 11/25/18 00:35 Actual Procedures p Exploratory Laparotomy GEN, right hemicolectomy, abdominal washout, sigmoid colectomy: beni, colorectal anastomosis, loop ileostomy, catecholization of greater omentum - Leonid Silvestre MD Physical Therapy Treatment Note M2 PT-IP Current Condition Start: 11/25/18 14:31 Freq: NEEDED Status: Active Protocol: Document 11/26/18 11:07 AB (Rec: 11/26/18 12:00 AB [id number]) Physical Therapy Current Condition Current Condition Evaluation Date 11/26/18 Treatment Diagnosis large bowel obstruction s/p ex -lap and hemicolectomy; generalized weakness Onset Date 11/24/18 Precautions Abdominal Surgery Precautions Log Roll Lifting Restrictions Gait Belt above Incisional Area M3 PT-IP Subjective Start: 11/25/18 14:31 Freq: NEEDED Status: Active Protocol: Document 11/28/18 11:25 GGD (Rec: 11/28/18 12:29 GGD [id number]) Subjective Physical Therapy Visit Type Type Treatment Note Visit Start Time 11:00 Visit Stop Time 11:27 Total Visit Minutes 27 Number of [employer] MAKER Visits 1 Physical Therapy Visit Comments Patient Comments Pt willing to work with [facility]. Therapy Pain Assessment Pain When Pain Assessed During Mobility Pain Present Pain Present Pain Reported M4 PT-IP Mobility and Gait Start: 11/25/18 14:31 Freq: NEEDED Status: Active Protocol: Document 11/28/18 11:25 GGD (Rec: 11/28/18 12:29 GGD [id number]) PT-Bed Mobility Assessment Rolling Type of Rolling Log Rolling Level of Assist Minimal Assistance Supine to Sit Supine to Sit Maximum Assistance 1 Person Assistance Head of Bed Elevated Bedrails Scooting Scooting to Edge of Bed Moderate Assistance PT-Transfer Assessment Sit to and From Stand Sit to and from Stand Contact Guard Assistance 1 Person Assistance Use of Upper Extremities Equipment Transfer Assistive Device Gait Belt Front Wheeled Walker Orthotic/Prosthetic Devices or Brace: No Transfers Transfer Destination Chair Transfer Ability Level of Assist Minimal Assistance Gait Assessment Gait Gait Assistance Required: Contact Guard Assist Minimum Assistance 1 Person Assist Distance (Feet) 45 Able to Maintain Weight Bearing Status Yes During Gait Assistive Devices Assistive Device Gait Belt Front Wheeled Walker Orthotic/Prosthetic Devices or Brace: No Gait Deviations General Gait Pattern Decreased Stride Length Decreased Feet Clearance Factors Limiting Gait Function Factors Limiting Gait Function Decreased Activity Tolerance Decreased Strength Limited Range of Motion Pain Poor Balance Comments Gait Comments Pt needed cues for step length. M5 PT-IP Objective Assessments Start: 11/25/18 14:31 Freq: NEEDED Status: Active Protocol: Document 11/26/18 11:07 AB (Rec: 11/26/18 12:00 AB [id number]) Orientation Orientation/Cognition Level of Alertness Alert Orientation Name Age Place Situation Language Function Ability No Deficits Noted Safety Awareness Understands Safety Issues Memory Description No Deficits Noted Gross Range of Motion Lower Extremity ROM Assessment Within Functional Limits Strength Lower Extremity Strength Assessment Within Functional Limits Coordination Assessment Gross Coordination Gross Coordination WNL Sensation Assessment Sensation Gross Sensation WNL Muscle Tone Muscle Tone WNL Yes M6 PT-IP Treatment Start: 11/25/18 14:31 Freq: NEEDED Status: Active Protocol: Document 11/27/18 09:41 AB (Rec: 11/27/18 10:51 AB [id number]) Physical Therapy Treatment Education Education Provided Safety M7 PT-IP Assessment and Plan Start: 11/25/18 14:31 Freq: NEEDED Status: Active Protocol: Document 11/28/18 11:25 GGD (Rec: 11/28/18 12:29 GGD [id number]) PT Summary Assessment and Plan Summary Assessment Summary Pt needs assist for bed mobility. She was able to progress gait distance, with heavy use of UE on FWW. Frequency of Treatment Frequency Of Treatment Once a Day Treatment Plan Physical Therapy Treatment Plan Bed Mobility Training Transfer Training Gait Training Therapeutic Exercise Balance Retraining Post Op Education Discharge Planning Hot or Cold Pack Neuromuscular Re-ed Coordination Retraining Manual Therapy Recommendations To Nursing Amount of Assist Needed 1 Person Assist Discharge Recommendations PT Discharge Recommendations Home with Assistance Home Health SNF Rehab
[2018-11-28] MEDS: LACTATED RINGERS 1,000 ML 75 ML IV (12:00)
[2018-11-28] MEDS: INSULIN ASPART 100 UNIT/ML INSULN PEN SUBCUT ×2 (12:18→18:21)
--- NOTE | 2018-11-28 12:34 | PC.NURSE ---
Addendum entered by Karli Pickett R.N. 11/28/18 15:19: NG tube removed without issue. Original Note: Day Shift Note Oriented x3. Oxygen sats 93% RA while awake, decreasing to 87% this afternoon while sleeping. Using IS and coughing and deep breathing, minimal effect on oxygen sats. 2L oxygen NC placed with sats increasing to 98%. Medicated with Dilaudid 0.5 mg IV prior to dressing change. Dressing change done at 1100. [place] in place intermittently along abdominal incision - old packing removed without issue. NS soaked gauze placed into wound bed (open areas between beni). Free of erythema, no drainage noted, tissue pink. Covered with ABD dressing and secured with tape. Ileostomy stoma beefy red, producing scant amount liquid brown/yellow output with flatus. Up walking in halls with PT, now sitting up in chair. Denies nausea, NG tube to LIS when not clamped after medication administration. Epidural continuing at 6 ml/hr - pt reports decreased sensation T8-T10 but does report incisional pain with mobility 4/10. Taylor catheter in place and draining clear yellow urine. Call light within reach, using appropriately to make needs known.
--- NOTE | 2018-11-28 14:21 | PM.PNPO.1 ---
Subjective Date Patient Seen: 11/28/18 Time Patient Seen: 14:21 Interval history: Patient feeling pretty good all things considered. Pain is minimal. Ostomy output has begun in earnest. Exam Vital Signs (past 8 hours): - 11/28/18 10:00 11/28/18 12:20 11/28/18 12:32 Temperature 98.7 F Pulse Rate 80 Respiratory Rate 14 Blood Pressure 123/62 Pulse Oximetry 93 87 L 97 11/28/18 12:44 Temperature 98.2 F Pulse Rate 73 Respiratory Rate 14 Blood Pressure 156/76 H Pulse Oximetry 97 Oxygen Delivery Method Room Air Oxygen Flow Rate 2 Narrative Exam Narrative: Lungs are clear to auscultation. No rales or rhonchi. Heart regular rate and rhythm. I do not hear a murmur today. Abdomen is protuberant and soft. Wound reported by nursing to be good. No cellulitis. No unusual drainage. Objective Labs Result Diagrams: 11/28/18 05:00 11/28/18 05:00 Labs: Laboratory Results - last 24 hr 11/27/18 11/28/18 11/28/18 14:00 05:00 05:00 WBC 10.9 RBC 3.21 L Hgb 9.7 L Hct 28.3 L MCV 88.3 MCH 30.3 MCHC 34.3 RDW 13.4 Plt Count 205 Neut % (Auto) 80.7 H Lymph % (Auto) 11.9 L [place] % (Auto) 4.8 Eos % (Auto) 2.4 Baso % (Auto) 0.2 Neut # (Auto) 8800 H Lymph # (Auto) 1300 [place] # (Auto) 500 Eos # (Auto) 300 Baso # (Auto) 0 Sodium 136 L Potassium 3.3 L Chloride 100 Carbon Dioxide 33 H BUN 16 Creatinine 0.80 Estimated GFR > 60.0 BUN/Creatinine Ratio 20.0 Glucose 109 Calcium 7.6 L Magnesium 2.4 H Total Bilirubin 0.6 AST 43 H ALT 26 Alkaline Phosphatase 54 Troponin I 0.012 Total Protein 4.7 L Albumin 2.3 L Globulin 2.4 Albumin/Globulin Ratio 1.0 Assessment & Plan Post-op Postoperative Procedures Operation Date: 11/25/18 00:35 Actual Procedures Side Surgeon p Exploratory Laparotomy GEN, right hemicolectomy, abdominal washout, sigmoid colectomy: beni, colorectal anastomosis, loop ileostomy, catecholization of greater omentum Leonid Silvestre MD Postoperative status narrative: Patient doing well. Mildly hypokalemic. Potassium is in her TPN. We made slightly elevated Mag. Has come down though. Bowel function is begun. NG pick can be removed. Switch to p.o. mets if they were given the NG. Stop ice chips. Continue ambulation. Continue epidural for now. Acute blood loss anemia secondary to intraoperative bleeding will continue to monitor but not transfuse at this time. Postoperative plan narrative: Continue TPN but it an increased rate. Lipids. Continue supportive care. Remove NG tube. NPO. X-rays in a.m.. Changed floor care. Quality VTE Deep Vein Thrombosis/Pulmonary Embolism Present on Admission: No
--- NOTE | 2018-11-28 15:54 | P.PN_ITS ---
Subjective Date Patient Seen: 11/28/18 Time Patient Seen: 15:54 Interval history: Erinn Helm is a 63-year-old female, is pod #3 status post right hemicolectomy, sigmoid colon resection, colorectal anastomosis, ileocolic anastomosis with diverting loop ileostomy, and right ovarian removal. The hospitalist service was consulted to evaluate for tachycardia, and concern for possible ventricular tachycardia. Patient denies chest pain, shortness of breath, her NG tube was recently remov ed, she has mild abdominal pain that is well controlled through her epidural, and she currently has output from her ostomy. Her heart rate is improved and she denies recent palpitations or chest pain. She further denies shortness of breath. She has some mild nausea intermittently. I personally reviewed the telemetry and the events do not appear to be a ventricular tachycardia, some of these episodes are due to artifact and she has had a couple of PVCs that the computer may interpret as ventricular tachycardia. Exam Vital Signs (past 8 hours): - 11/28/18 10:00 11/28/18 12:20 11/28/18 12:32 Temperature 98.7 F Pulse Rate 80 Respiratory Rate 14 Blood Pressure 123/62 Pulse Oximetry 93 87 L 97 11/28/18 12:44 11/28/18 15:44 Temperature 98.2 F Pulse Rate 73 Respiratory Rate 14 Blood Pressure 156/76 H Pulse Oximetry 97 92 Oxygen Delivery Method Room Air Oxygen Flow Rate 2 Narrative Exam Narrative: GENERAL APPEARANCE: Well developed, well nourished, in no acute distress. Obese female appears stated age. SKIN: Inspection of the skin reveals no rashes, ulcerations or petechiae. HEENT: The sclerae were anicteric and conjunctivae were pink and moist. Extraocular movements were intact and pupils were equal, round with normal accommodation. External inspection of the ears and nose showed no scars, lesions, or masses. Lips, teeth, and gums showed normal mucosa. The oral mucosa, hard and soft palate, tongue and posterior pharynx were unremarkable. NECK: Supple and symmetric. There was no thyroid enlargement, and no tenderness, or masses were felt. CHEST: Obese, normal contour without any kyphoscoliosis. LUNGS: Auscultation of the lungs revealed no wheezes, rhonchi, or rales. CARDIOVASCULAR: There was a regular rate and rhythm without any murmurs, gallop s, rubs. Peripheral pulses were 2+ and symmetric. ABDOMEN: Soft and appropriately tender with normal bowel sounds. Ostomy with small amount of dark brown liquid in the bag. MUSCULOSKELETAL: There was no tenderness or effusions noted. Muscle strength and tone were normal. EXTREMITIES: No cyanosis, clubbing or edema. NEUROLOGIC: Alert and oriented x 3. Normal affect. Strength is +5/5 in the Upper Extremities and Lower Extremities Bilaterally. Sensation to touch was normal. Objective Labs Result Diagrams: 11/28/18 05:00 11/28/18 05:00 Labs: Laboratory Results - last 24 hr 11/28/18 11/28/18 05:00 05:00 WBC 10.9 RBC 3.21 L Hgb 9.7 L Hct 28.3 L MCV 88.3 MCH 30.3 MCHC 34.3 RDW 13.4 Plt Count 205 Neut % (Auto) 80.7 H Lymph % (Auto) 11.9 L [place] % (Auto) 4.8 Eos % (Auto) 2.4 Baso % (Auto) 0.2 Neut # (Auto) 8800 H Lymph # (Auto) 1300 [place] # (Auto) 500 Eos # (Auto) 300 Baso # (Auto) 0 Sodium 136 L Potassium 3.3 L Chloride 100 Carbon Dioxide 33 H BUN 16 Creatinine 0.80 Estimated GFR > 60.0 BUN/Creatinine Ratio 20.0 Glucose 109 Calcium 7.6 L Magnesium 2.4 H Total Bilirubin 0.6 AST 43 H ALT 26 Alkaline Phosphatase 54 Total Protein 4.7 L Albumin 2.3 L Globulin 2.4 Albumin/Globulin Ratio 1.0 Assessment & Plan Assessment & Plan narrative: Erinn Hlem is a 63-year-old female, is pod #3 status post right hemicolectomy, sigmoid colon resection, colorectal anastomosis, ileocolic anastomosis with diverting loop ileostomy, and right ovarian removal. The hospitalist service was consulted to evaluate for tachycardia, and concern for possible ventricular tachycardia. 1. Sepsis, resolved -patient had leukocytosis and tachycardia, with mild hypotension that was responsive to fluids. She had multiple reasons to be infected, including possible diverticular disease and large bowel obstruction as well as her urine which grew E. coli. I believe her tachycardia was in the s etting of sepsis, she is continued on Zosyn currently. Based on her hyponatremia and other electrolyte abnormalities I help so believe she was hypovolemic at that time, likely secondary to sepsis. Upon review of telemetry, I do not see any episodes of ventricular tachycardia. Her longest run was likely artifact, and other episodes are more indicative of premature ventricular contractions. Her mild troponin leak is likely in the setting of demand. - I believe it is reasonable to continue Zosyn at this time for her diverticular disease, this will more than cover for her E coli urinary tract infection. 2. Elevated troponin - as noted above this occurred in setting of likely sepsis. Now Resolved. - continue telemetry 3. Acute blood loss anemia secondary to surgical interventions - Hg stable today at 9.7 - continue to monitor CBC, I have ordered this today. 4. Hyponatremia - resolved 5. Hypokalemia - now being repleted with TPN, likely secondary to GI losses. - continue to monitor, goal K is 3.4 in this patient without history of CAD. 6. Severe protein calorie malnutrition - albumin 2.3 today, will likely improve once she is able to tolerate some PO intake. 7. Acute kidney injury, now resolved - secondary to sepsis noted above. 8. Metabolic alkalosis - as noted by her CO2 of 33 on BMP. This is likely due to GI losses given ostomy output and NG tube losses. 9. Elevated liver enzymes - possibly at baseline due to underlying CARNEY given obesity but can consider hypotension as well. please continue to monitor with CMP now that patient is receiving TPN. - I have ordered CMP to be drawn in the morning 10. Tachycardia- as described above in sepsis. Now resolved. 11. Elevated glucose - may be secondary to infusing medication or underlying diabetes, it is difficult to tell. - I will order her an A1c to be run to see if she will need outpatient therapy. Time Spent With Patient Time with patient: Greater than 35 minutes Quality VTE Deep Vein Thrombosis/Pulmonary Embolism Present on Admission: No
[2018-11-28] MEDS: FAT EMULSIONS 50 GM/250 ML EMULSION IV (18:01)
[2018-11-28] MEDS: CALCIUM IV (18:02)
[2018-11-28] MEDS: [UNRECOGNIZED DRUG - OTHER] IV (18:02)
[2018-11-28] MEDS: POTASSIUM CHLORIDE IV (18:02)
[2018-11-28] MEDS: LYTES IV (18:02)
[2018-11-28] MEDS: ACETAMINOPHEN 325 MG TABLET 650 MG PO (18:02)
[2018-11-28] MEDS: DEXT IV (18:02)
[2018-11-28] MEDS: GABAPENTIN 400 MG CAPSULE 800 MG PO (21:21)
[2018-11-29] VITALS (7 sets, daily range): BP systolic 101–180; BP diastolic 47–82; PULSE 73–91; RESP 14–20; TEMP 36.3–37; O2SAT 94–98
[2018-11-29] MEDS: ACETAMINOPHEN 325 MG TABLET 650 MG PO ×4 (00:01→18:22)
[2018-11-29] MEDS: HYDROMORPHONE 0.5 MG INJ IV ×5 (00:41→22:36)
[2018-11-29] MEDS: LACTATED RINGERS 1,000 ML 75 ML IV ×2 (03:48→22:34)
[2018-11-29] MEDS: PIPERACILLIN-TAZO 3.375 GM/50 ML FROZ.PIGGY IV ×4 (04:46→22:37)
[2018-11-29 05:33] LABS: Add Manual Diff / Slide Review NO; Basophils Absolute Auto 100 /uL (0-100); Basophils Percent Auto 0.8 % (0-2); Eosinophils Absolute Auto 400 /uL (0-450); Eosinophils Percent Auto 4.6 % (2-4); Hematocrit 29.1 % (36-46); Hemoglobin 9.9 g/dL (12.0-16.0); Lymphocytes Absolute Auto 1400 /uL (1100-4500); Lymphocytes Percent Auto 17.2 % (25-40); Mean Corpuscular Hemoglobin 30.2 PG (26-34); Mean Corpuscular Volume 88.7 fL (80-100); Monocytes Absolute Auto 700 /uL (0-900); Neutrophils Absolute Auto 5400 /uL (1500-7000); Neutrophils Percent Auto 68.4 % (50-75); Platelet Count 216 X10^3/uL (150-400); Red Blood Cell Count 3.28 X10^6/uL (4.0-5.2); Red Cell Distribution Width 13.3 % (11.6-14.8); White Blood Cell Count 7.9 X10^3/uL (4.5-11.0)
[2018-11-29 05:45] LABS: Alanine Aminotransferase 24 IU/L (9-52); Albumin 2.2 g/dL (3.5-5.0); Albumin Globulin Ratio 0.9 (1.0-2.8); Alkaline Phosphatase 79 U/L (38-126); Aspartate Aminotransferase 40 IU/L (14-36); BUN Creatinine Ratio 21.4 (6-22); Bilirubin Total 0.3 mg/dL (0.2-1.3); Blood Urea Nitrogen 15 mg/dL (7-17); Calcium 7.6 mg/dL (8.4-10.2); Carbon Dioxide 35 mmol/L (22-32); Chloride 101 mmol/L (98-107); Estimated Glomerular Filt Rate > 60.0 mL/min (>60); Globulin 2.5 g/dL (1.7-4.1); Glucose 132 mg/dL (80-110); HEMOLYSIS < 15 (0-50); Potassium 3.3 mmol/L (3.4-5.1); Sodium 137 mmol/L (137-145); Total Protein 4.7 g/dL (6.3-8.2)
[2018-11-29 06:10] LABS: Hemoglobin A1C% w Est Avg Glu 5.3 % (4.0-6.0)
[2018-11-29] MEDS: HEPARIN 5,000 UNIT/ML VIAL 5000 UNIT SUBCUT ×3 (06:35→21:38)
[2018-11-29] MEDS: INSULIN ASPART 100 UNIT/ML INSULN PEN SUBCUT ×3 (06:36→18:21)
[2018-11-29] MEDS: POTASSIUM CHLORIDE 40 MEQ in SODIUM CHLORIDE 0.9% 500 ML 130 ML IV (09:12)
[2018-11-29] MEDS: FENT 2MCG/ML BUPIV 0.125% EPI 200 MCG/100 ML PLAST..BAG 6 MCG EPIDURAL (09:31)
--- NOTE | 2018-11-29 10:07 | PC.NURSE ---
Addendum entered by Caitlyn Patel R.N. 11/29/18 15:26: PATIENT PROVIDED BED BATH AND TRANSF UP TO RM 212. REPORT GIVEN TO SPENCER Addendum entered by Caitlyn Patel R.N. 11/29/18 12:53: SEE WORKLIST FOR DRSG CHANGE DOCUMENTATION. Original Note: DAY SHIFT NOTE PATIENT ASLEEP THIS AM, AWOKE HER AT 0945 FOR ASSESSMENT. SEE DOCUMENTATION. SHE DENIES N/V. OSTOMY APPLIANCE CDI, LARGE ABD DRSG CDI. ABD BINDER IN PLACE. EPIDURAL DRSG CDI. PICC LINE DRSG CDI. TPN RUNNING PER ORDERS, K-RIDER INFUSING. PATIENT DENIES PAIN. MOVES ALL EXTREMITIES IN BED. VSS, AFEBRILE. PREFERS TO GO BACK TO SLEEP AT THIS TIME. AGREES TO DRSG CHANGE AND INCREASING ACTIVITY WHEN AWAKE LATER THIS AM.
[2018-11-29 11:39] LABS: Magnesium 2.2 mg/dL (1.6-2.3)
--- NOTE | 2018-11-29 11:47 | PC.NURSE ---
EPIDURAL DC'D: DR ESPINAL ROUNDED ON PATIENT. STATES EPIDURAL CAN BE DC'D TODAY. CALLED DR. FRAUSTO. NOTIFIED OF SAME. NOTIFIED OF LAST DOSE OF HEPARIN SUBQ AT 0645, HAS BEEN GETTING HEPARIN SUBQ EVERY 8HRS. DR. FRAUSTO STATES IT IS OK TO DC EPIDURAL NOW, AND RESTART IN 2 HRS. CONFIRMED W/ PHARMACY; HEPARIN HAS A SHORTER HALF LIFE THAN [employer]OV[employer]OX. CATHETER DC'D INTACT, NO BLEEDING. BANDAID DRSG APPLIED.
--- NOTE | 2018-11-29 11:55 | PM.PNPO.1 ---
Subjective Date Patient Seen: 11/29/18 Time Patient Seen: 11:30 Interval history: The patient is a woman post right colectomy and sigmoid colectomy for an obstruction and perforation. Her pain is well controlled. She has been ambulating and physical therapy has seen her. They are presently waiting to get her out of bed. No nausea. Ostomy continues to function. Wound reported to be clean by nursing. Exam Vital Signs (past 8 hours): - 11/29/18 04:00 11/29/18 09:47 Temperature 98.0 F 98.6 F Pulse Rate 74 86 Respiratory Rate 14 20 Blood Pressure 101/47 L 139/75 Pulse Oximetry 98 95 Oxygen Delivery Method Room Air Oxygen Flow Rate 0 Narrative Exam Narrative: Lungs clear anteriorly decreased breath sounds in the bases. Heart regular rate and rhythm without murmur gallop. Abdomen is protuberant and soft. Would be difficult to tell if she is distended because of her size. Objective Labs Result Diagrams: 11/29/18 05:20 11/29/18 05:20 Labs: Laboratory Results - last 24 hr 11/29/18 11/29/18 11/29/18 05:20 05:20 05:20 WBC 7.9 RBC 3.28 L Hgb 9.9 L Hct 29.1 L MCV 88.7 MCH 30.2 MCHC 34.0 RDW 13.3 Plt Count 216 Neut % (Auto) 68.4 Lymph % (Auto) 17.2 L [place] % (Auto) 9.0 Eos % (Auto) 4.6 H Baso % (Auto) 0.8 Neut # (Auto) 5400 Lymph # (Auto) 1400 [place] # (Auto) 700 Eos # (Auto) 400 Baso # (Auto) 100 Sodium 137 Potassium 3.3 L Chloride 101 Carbon Dioxide 35 H BUN 15 Creatinine 0.70 Estimated GFR > 60.0 BUN/Creatinine Ratio 21.4 Glucose 132 H Hemoglobin A1c 5.3 Calcium 7.6 L Magnesium Total Bilirubin 0.3 AST 40 H ALT 24 Alkaline Phosphatase 79 Total Protein 4.7 L Albumin 2.2 L Globulin 2.5 Albumin/Globulin Ratio 0.9 L 11/29/18 05:20 WBC RBC Hgb Hct MCV MCH MCHC RDW Plt Count Neut % (Auto) Lymph % (Auto) [place] % (Auto) Eos % (Auto) Baso % (Auto) Neut # (Auto) Lymph # (Auto) [place] # (Auto) Eos # (Auto) Baso # (Auto) Sodium Potassium Chloride Carbon Dioxide BUN Creatinine Estimated GFR BUN/Creatinine Ratio Glucose Hemoglobin A1c Calcium Magnesium 2.2 Total Bilirubin AST ALT Alkaline Phosphatase Total Protein Albumin Globulin Albumin/Globulin Ratio Assessment & Plan Post-op Postoperative Procedures Operation Date: 11/25/18 00:35 Actual Procedures Side Surgeon p Exploratory Laparotomy GEN, right hemicolectomy, abdominal washout, sigmoid colectomy: beni, colorectal anastomosis, loop ileostomy, catecholization of greater omentum Leonid Silvestre MD Postoperative day: 4 Postoperative status narrative: Patient doing remarkably well. Her white blood cell count is normal with a normal diff. Hematocrit has been stable and and presently 29. She continues to have good ostomy output. Taylor is left in place because of a possible fistula division to allow for bladder healing. Postoperative plan narrative: Epidural can come out. Nursing instructed to follow epidural protocol regarding heparin. May need to time the removal as well as the restart of her subcu heparin. Platelet count has been okay. Will begin her on a clear liquid diet but also continue her TPN for now. Her glucoses have been consistently at 140 or below so she has not required use of insulin. The patient is hypokalemic and I have added additional potassium to her TPN. If she tolerates her liquids today will stop her TPN tomorrow. Will also give lipids today. Check labs tomorrow. Awaiting Mag level today. Patient had an elevated magnesium. No recurrent runs of V-tach noted. Quality VTE Deep Vein Thrombosis/Pulmonary Embolism Present on Admission: No
--- NOTE | 2018-11-29 12:52 | PT.IPTN ---
Current Diagnoses Diverticulitis of large intestine with perforation and abscess without bleeding (11/24/18) Surgery Performed Operation Date: 11/25/18 00:35 Actual Procedures p Exploratory Laparotomy GEN, right hemicolectomy, abdominal washout, sigmoid colectomy: beni, colorectal anastomosis, loop ileostomy, catecholization of greater omentum - Leonid Silvestre MD Physical Therapy Treatment Note M2 PT-IP Current Condition Start: 11/25/18 14:31 Freq: NEEDED Status: Active Protocol: Document 11/26/18 11:07 AB (Rec: 11/26/18 12:00 AB [id number]) Physical Therapy Current Condition Current Condition Evaluation Date 11/26/18 Treatment Diagnosis large bowel obstruction s/p ex -lap and hemicolectomy; generalized weakness Onset Date 11/24/18 Precautions Abdominal Surgery Precautions Log Roll Lifting Restrictions Gait Belt above Incisional Area M3 PT-IP Subjective Start: 11/25/18 14:31 Freq: NEEDED Status: Active Protocol: Document 11/29/18 12:40 HH (Rec: 11/29/18 12:52 HH [email or web address]) Subjective Physical Therapy Visit Type Type Treatment Note Visit Start Time 11:15 Visit Stop Time 11:48 Total Visit Minutes 33 Number of PATIENT SERVICE ASSOCIATE Visits 0 Physical Therapy Visit Comments Patient Comments Pt willing to work with [employer]. Therapy Pain Assessment Pain When Pain Assessed During Mobility Pain Present Pain Present Pain Reported M4 PT-IP Mobility and Gait Start: 11/25/18 14:31 Freq: NEEDED Status: Active Protocol: Document 11/29/18 12:40 HH (Rec: 11/29/18 12:52 [email or web address]) PT-Bed Mobility Assessment Rolling Type of Rolling Log Rolling Level of Assist Contact Guard Assistance Supine to Sit Supine to Sit Maximum Assistance 2 Person Assistance Head of Bed Elevated Bedrails Scooting Scooting to Edge of Bed Moderate Assistance PT-Transfer Assessment Sit to and From Stand Sit to and from Stand Minimal Assistance 1 Person Assistance Equipment Transfer Assistive Device Gait Belt Front Wheeled Walker Orthotic/Prosthetic Devices or Brace: No Transfers Transfer Destination Chair Transfer Technique Stand Step Pivot Transfer Ability Level of Assist Minimal Assistance Comments Mobility Comments Pt has difficulty performing side push up from sidelying position who required max A x 2. Gait Assessment Gait Gait Assistance Required: Contact Guard Assist Minimum Assistance 1 Person Assist Distance (Feet) 50 Able to Maintain Weight Bearing Status Yes During Gait Assistive Devices Assistive Device Gait Belt Front Wheeled Walker Orthotic/Prosthetic Devices or Brace: No Gait Deviations General Gait Pattern Decreased Stride Length Decreased Feet Clearance Factors Limiting Gait Function Factors Limiting Gait Function Decreased Activity Tolerance Decreased Strength Limited Range of Motion Pain Poor Balance Comments Gait Comments Pt needed cues for step length and keeping her walker close to body. M5 PT-IP Objective Assessments Start: 11/25/18 14:31 Freq: NEEDED Status: Active Protocol: Document 11/26/18 11:07 AB (Rec: 11/26/18 12:00 AB [id number]) Orientation Orientation/Cognition Level of Alertness Alert Orientation Name Age Place Situation Language Function Ability No Deficits Noted Safety Awareness Understands Safety Issues Memory Description No Deficits Noted Gross Range of Motion Lower Extremity ROM Assessment Within Functional Limits Strength Lower Extremity Strength Assessment Within Functional Limits Coordination Assessment Gross Coordination Gross Coordination WNL Sensation Assessment Sensation Gross Sensation WNL Muscle Tone Muscle Tone WNL Yes M6 PT-IP Treatment Start: 11/25/18 14:31 Freq: NEEDED Status: Active Protocol: Document 11/29/18 12:40 HH (Rec: 11/29/18 12:52 [email or web address]) Physical Therapy Treatment Education Education Provided Safety M7 PT-IP Assessment and Plan Start: 11/25/18 14:31 Freq: NEEDED Status: Active Protocol: Document 11/29/18 12:40 HH (Rec: 11/29/18 12:52 [email or web address]) PT Summary Assessment and Plan Potential Rehabilitation Potential Good Status of Condition at Evaluation Stable Summary Impairments Pain ROM Strength Balance Coordination Sensation Bed Mobility Transfers Gait Activity Tolerance Progress Towards Goals Slow Progress due to Pain Slow Progress due to Medical Issues Slow Progress due to Activity Tolerance Assessment Summary Pt's VS stable 158/71 <-> 151/ 82. Pt cont has difficulty for bed mobility with max A x2 , especially log roll to sitting EOB. She was able to progress gait distance. Pt currently is still very fragile, espcially pt lives alone. Going to SNF for short term rehab would be a better option at this point. Goals Bed Mobility Goal Standby Assistance Transfer Goal Independent Front Wheeled Walker Gait Goal Independent Front Wheel Walker Gait Distance 200 Other Goals to improve ambulation ~ 250 ft least restrictive AD or without AD Days to Meet Goals 10 Frequency of Treatment Frequency Of Treatment Once a Day Treatment Plan Physical Therapy Treatment Plan Bed Mobility Training Transfer Training Gait Training Therapeutic Exercise Balance Retraining Post Op Education Discharge Planning Hot or Cold Pack Neuromuscular Re-ed Coordination Retraining Manual Therapy Other Recommendations and Next Treatment logroll Focus bed mobility, transfers, ambulation Recommendations To Nursing Amount of Assist Needed 1 Person Assist Discharge Recommendations PT Discharge Recommendations SNF Rehab Equipment Needed for Home Before FWW if not safe with other AD/ Discharge without AD
--- NOTE | 2018-11-29 14:00 | CM.DPC ---
DCP Cont: Per RN, pt had epidural out and SW saw PT ambulating pt slowly around the unit and pt likely will transition out of ICU and onto the medical floor as she has continued to progress. SW called pt's contact/friend Kyra, who has been very involved in pt's care and d/c coordination, and updated her on pt status and [facility] admissions working on insurance auth on Friday along with ongoing wound care Friday by Khadijah Rodrigues. Kyra very appreciative of the update and plans to be bedside Friday if pt still here. Plan: SW to follow closely tomorrow (Friday) with [facility] and Wound RN Khadijah towards ongoing plan of SNF at d/c. DUONG Barraza
--- NOTE | 2018-11-29 16:31 | PM.PN.1 ---
Subjective Date Patient Seen: 11/29/18 Time Patient Seen: 16:31 Interval history: Erinn Helm is a 63-year-old female, is pod #4 status post right hemicolectomy, sigmoid colon resection, colorectal anastomosis, ileocolic anastomosis with diverting loop ileostomy, and right ovarian removal. The hospitalist service was consulted to evaluate for tachycardia, and concern for possible ventricular tachycardia. Patient denies chest pain, shortness of breath, or palpitations. She has had some mild nausea but overall she feels well. She tolerated a small amount of water today but could not tolerate much of the chicken broth. She has not looked at her colostomy as of yet. Exam Vital Signs (past 8 hours): - 11/29/18 09:47 11/29/18 11:57 11/29/18 15:35 Temperature 98.6 F 98.3 F 97.3 F L Pulse Rate 86 91 H 83 Respiratory Rate 20 17 16 Blood Pressure 139/75 157/82 H 140/77 Pulse Oximetry 95 94 94 Oxygen Delivery Method Room Air Oxygen Flow Rate 0 Narrative Exam Narrative: GENERAL APPEARANCE: Well developed, well nourished, in no acute distress. Obese female appears stated age. SKIN: Inspection of the skin reveals no rashes, ulcerations or petechiae. HEENT: The sclerae were anicteric and conjunctivae were pink and moist. Extraocular movements were intact and pupils were equal, round with normal accommodation. External inspection of the ears and nose showed no scars, lesions, or masses. Lips, teeth, and gums showed normal mucosa. The oral mucosa, hard and soft palate, tongue and posterior pharynx were unremarkable. NECK: Supple and symmetric. There was no thyroid enlargement, and no tenderness, or masses were felt. CHEST: Obese, normal contour without any kyphoscoliosis. LUNGS: Auscultation of the lungs revealed no wheezes, rhonchi, or rales. CARDIOVASCULAR: There was a regular rate and rhythm without any murmurs, gallops, rubs. Peripheral pulses were 2+ and symmetric. ABDOMEN: Soft and appropriately tender with normal bowel sounds. Ostomy with small amount of dark brown liquid in the bag. MUSCULOSKELETAL: There was no tenderness or effusions noted. Muscle strength and tone were normal. EXTREMITIES: No cyanosis, clubbing or edema. NEUROLOGIC: Alert and oriented x 3. Normal affect. Strength is +5/5 in the Upper Extremities and Lower Extremities Bilaterally. Sensation to touch was normal. Objective Labs Result Diagrams: 11/29/18 05:20 11/29/18 05:20 Labs: Laboratory Results - last 24 hr 11/29/18 11/29/18 11/29/18 05:20 05:20 05:20 WBC 7.9 RBC 3.28 L Hgb 9.9 L Hct 29.1 L MCV 88.7 MCH 30.2 MCHC 34.0 RDW 13.3 Plt Count 216 Neut % (Auto) 68.4 Lymph % (Auto) 17.2 L [place] % (Auto) 9.0 Eos % (Auto) 4.6 H Baso % (Auto) 0.8 Neut # (Auto) 5400 Lymph # (Auto) 1400 [place] # (Auto) 700 Eos # (Auto) 400 Baso # (Auto) 100 Sodium 137 Potassium 3.3 L Chloride 101 Carbon Dioxide 35 H BUN 15 Creatinine 0.70 Estimated GFR > 60.0 BUN/Creatinine Ratio 21.4 Glucose 132 H Hemoglobin A1c 5.3 Calcium 7.6 L Magnesium Total Bilirubin 0.3 AST 40 H ALT 24 Alkaline Phosphatase 79 Total Protein 4.7 L Albumin 2.2 L Globulin 2.5 Albumin/Globulin Ratio 0.9 L 11/29/18 05:20 WBC RBC Hgb Hct MCV MCH MCHC RDW Plt Count Neut % (Auto) Lymph % (Auto) [place] % (Auto) Eos % (Auto) Baso % (Auto) Neut # (Auto) Lymph # (Auto) [place] # (Auto) Eos # (Auto) Baso # (Auto) Sodium Potassium Chloride Carbon Dioxide BUN Creatinine Estimated GFR BUN/Creatinine Ratio Glucose Hemoglobin A1c Calcium Magnesium 2.2 Total Bilirubin AST ALT Alkaline Phosphatase Total Protein Albumin Globulin Albumin/Globulin Ratio Assessment & Plan Assessment & Plan narrative: Erinn Helm is a 63-year-old female, is pod #4 status post right hemicolectomy, sigmoid colon resection, colorectal anastomosis, ileocolic anastomosis with diverting loop ileostomy, and right ovarian removal. The hospitalist service was consulted to evaluate for tachycardia, and concern for possible ventricular tachycardia. 1. Sepsis, resolved -patient had leukocytosis and tachycardia, with mild hypotension that was responsive to fluids. She had multiple reasons to be infected, including possible diverticular disease and large bowel obstruction as well as her urine which grew E. coli. I believe her tachycardia was in the setting of sepsis, she is continued on Zosyn currently. Based on her hyponatremia and other electrolyte abnormalities I help so believe she was hypovolemic at that time, likely secondary to sepsis. Upon review of telemetry, I do not see any episodes of ventricular tachycardia. Her longest run was likely artifact, and other episodes are more indicative of premature ventricular contractions. Her mild troponin leak is likely in the setting of demand from sepsis - I believe it is reasonable to continue Zosyn at this time for her diverticular disease, this will more than cover for her E coli urinary tract infection. 2. Elevated troponin - as noted above this occurred in setting of likely sepsis. Now Resolved. - continue telemetry 3. Acute blood loss anemia secondary to surgical interventions - Hg stable today at 9.7 - continue to monitor CBC, I have ordered this today. 4. Hyponatremia - resolved 5. Hypokalemia - being repleted with TPN, likely secondary to GI losses. - continue to monitor, goal K is 3.4 in this patient without history of CAD. 6. Severe protein calorie malnutrition - albumin 2.2 today, will likely improve once she is able to tolerate some more PO intake. 7. Acute kidney injury, now resolved - secondary to sepsis noted above. 8. Metabolic alkalosis - as noted by her CO2 of 35 on BMP. This is likely due to GI losses given ostomy output and NG tube losses. This should improve with improved PO intake. 9. Elevated liver enzymes - possibly at baseline due to underlying CARNEY given obesity but can consider hypotension as well. please continue to monitor with CMP now that patient is receiving TPN. 10. Tachycardia- as described above in sepsis. Now resolved. 11. Elevated glucose - likely secondary to TPN, A1c is 5.3% and once tolerating PO she does not require any outpatient therapy. Medicine service will now sign off as tachycardia has resolved. Please feel free to reach out with any questions or to re-consult in the future. Time Spent With Patient Time with patient: 25 - 35 minutes Quality VTE Deep Vein Thrombosis/Pulmonary Embolism Present on Admission: No
[2018-11-29] MEDS: POTASSIUM CHLORIDE IV (18:19)
[2018-11-29] MEDS: LYTES IV (18:19)
[2018-11-29] MEDS: DEXT IV (18:19)
[2018-11-29] MEDS: CALCIUM IV (18:19)
[2018-11-29] MEDS: [UNRECOGNIZED DRUG - OTHER] IV (18:19)
[2018-11-29] MEDS: FAT EMULSIONS 50 GM/250 ML EMULSION IV (18:21)
--- NOTE | 2018-11-29 21:18 | PC.NURSE ---
Dressing changed at 1914, wet to dry dressing change. Packed with wet kerlix, placed some moist guaze on top then covered wound with abd pads. Pt tolerated drsng change well. Colostomy draining greenish liquid. YAHIR draining serosanguineous fluid.
[2018-11-29] MEDS: GABAPENTIN 400 MG CAPSULE 800 MG PO (21:38)
[2018-11-30] VITALS (9 sets, daily range): BP systolic 126–154; BP diastolic 74–94; PULSE 87–96; RESP 15–20; TEMP 36.5–37.6; O2SAT 95–98
[2018-11-30] MEDS: ACETAMINOPHEN 325 MG TABLET 650 MG PO ×4 (00:13→18:45)
[2018-11-30] MEDS: HYDROMORPHONE 0.5 MG INJ IV ×3 (04:33→20:11)
[2018-11-30] MEDS: PIPERACILLIN-TAZO 3.375 GM/50 ML FROZ.PIGGY IV ×4 (04:34→22:15)
--- NOTE | 2018-11-30 05:27 | PC.NURSE ---
Pt alert and oriented. TPN running without issues. Pt tolerating clear liquids without issues. Pt midline incision site clean dry and intact. Abdomen wrapped in binder. Colostomy bag dry and intact draining dark green. Taylor intact draining clear and yellow urine. Pt incision pain resolved with IV dilaudid.
[2018-11-30] MEDS: HEPARIN 5,000 UNIT/ML VIAL 5000 UNIT SUBCUT ×3 (05:51→22:11)
[2018-11-30] MEDS: INSULIN ASPART 100 UNIT/ML INSULN PEN SUBCUT ×3 (06:26→20:11)
[2018-11-30 06:36] LABS: Add Manual Diff / Slide Review NO; Basophils Absolute Auto 0 /uL (0-100); Basophils Percent Auto 0.3 % (0-2); Eosinophils Absolute Auto 300 /uL (0-450); Hematocrit 32.8 % (36-46); Hemoglobin 10.9 g/dL (12.0-16.0); Lymphocytes Absolute Auto 1100 /uL (1100-4500); Mean Corpuscular HGB Conc 33.3 % (30-36); Mean Corpuscular Hemoglobin 29.7 PG (26-34); Mean Corpuscular Volume 89.2 fL (80-100); Monocytes Absolute Auto 800 /uL (0-900); Monocytes Percent Auto 8.4 % (3-14); Neutrophils Absolute Auto 7200 /uL (1500-7000); Neutrophils Percent Auto 76.3 % (50-75); Platelet Count 235 X10^3/uL (150-400); Red Blood Cell Count 3.68 X10^6/uL (4.0-5.2); Red Cell Distribution Width 13.3 % (11.6-14.8); White Blood Cell Count 9.4 X10^3/uL (4.5-11.0)
[2018-11-30 06:45] LABS: Alanine Aminotransferase 26 IU/L (9-52); Albumin 2.4 g/dL (3.5-5.0); Albumin Globulin Ratio 0.9 (1.0-2.8); Alkaline Phosphatase 91 U/L (38-126); Aspartate Aminotransferase 39 IU/L (14-36); BUN Creatinine Ratio 21.7 (6-22); Bilirubin Total 0.3 mg/dL (0.2-1.3); Blood Urea Nitrogen 13 mg/dL (7-17); Calcium 7.8 mg/dL (8.4-10.2); Carbon Dioxide 32 mmol/L (22-32); Chloride 102 mmol/L (98-107); Estimated Glomerular Filt Rate > 60.0 mL/min (>60); Globulin 2.6 g/dL (1.7-4.1); Glucose 135 mg/dL (80-110); HEMOLYSIS < 15 (0-50); Potassium 3.7 mmol/L (3.4-5.1); Sodium 138 mmol/L (137-145)
--- NOTE | 2018-11-30 09:55 | PC.NURSE ---
Day shift: Dressing changed wet to dry per MD orders. Pt tolerated well. No s/s of infection. Brace/binder re-applied.
[2018-11-30] MEDS: POLYVINYL ALCOHOL DROPS 2 DROPS EYE-BOTH (10:11)
[2018-11-30] MEDS: LACTATED RINGERS 1,000 ML 75 ML IV (11:16)
--- NOTE | 2018-11-30 12:03 | P.PN_ITS ---
Subjective Date Patient Seen: 11/30/18 Time Patient Seen: 11:55 Interval history: Doing well. Began clear liquid diet yesterday no appetite minimal intake. No emesis. No acute overnight events. Epidural removed yesterday pain well controlled. Exam Vital Signs (past 8 hours): - 11/30/18 04:21 11/30/18 08:09 11/30/18 09:13 Temperature 98.0 F 97.7 F Pulse Rate 93 H 87 Respiratory Rate 17 17 Blood Pressure 146/86 H 140/74 Pulse Oximetry 98 98 95 Oxygen Delivery Method Room Air Oxygen Flow Rate 0 Narrative Exam Narrative: General adult female alert oriented x3 no acute distress Chest nonlabored respirations no audible wheezing. Abdomen compressible her RN packing recently changedpacking and wound healing well with granulation tissue. Viable ostomy. Objective Labs Result Diagrams: 11/30/18 06:10 11/30/18 06:10 Labs: Laboratory Results - last 24 hr 11/25/18 11/30/18 11/30/18 04:05 06:10 06:10 WBC 9.4 RBC 3.68 L Hgb 10.9 L Hct 32.8 L MCV 89.2 MCH 29.7 MCHC 33.3 RDW 13.3 Plt Count 235 Neut % (Auto) 76.3 H Lymph % (Auto) 12.0 L [place] % (Auto) 8.4 Eos % (Auto) 3.0 Baso % (Auto) 0.3 Neut # (Auto) 7200 H Lymph # (Auto) 1100 [place] # (Auto) 800 Eos # (Auto) 300 Baso # (Auto) 0 Sodium 138 Potassium 3.7 Chloride 102 Carbon Dioxide 32 BUN 13 Creatinine 0.60 Estimated GFR > 60.0 BUN/Creatinine Ratio 21.7 Glucose 135 H Calcium 7.8 L Total Bilirubin 0.3 AST 39 H ALT 26 Alkaline Phosphatase 91 Total Protein 5.0 L Albumin 2.4 L Globulin 2.6 Albumin/Globulin Ratio 0.9 L Crossmatch See Detail Assessment & Plan Post-op Postoperative Procedures Operation Date: 11/25/18 00:35 Actual Procedures Side Surgeon p Exploratory Laparotomy GEN, right hemicolectomy, abdominal washout, sigmoid colectomy: beni, colorectal anastomosis, loop ileostomy, catecholization of greater omentum Leonid Silvestre MD Postoperative day: 5 Postoperative status narrative: 63-year-old woman postoperative day 5 status post right hemicolectomy and sigmoid colectomy with diverting ileostomy doing well. Began clear liquids yesterday ostomy is productive but minimal appetite and occasional nausea. Continue TPN today likely discontinue tomorrow, if tolerating increased p.o. intake. Discontinue IV fluids. Epidural catheter removed yesterday pain well controlled will add p.o. pain meds. Continue work with physical therapy. Labs reviewed no leukocytosis electrolytes within normal limits Time Spent With Patient less than 15 minutes Quality VTE Deep Vein Thrombosis/Pulmonary Embolism Present on Admission: No
--- NOTE | 2018-11-30 12:03 | PT.IPTN ---
Current Diagnoses Diverticulitis of large intestine with perforation and abscess without bleeding (11/24/18) Surgery Performed Operation Date: 11/25/18 00:35 Actual Procedures p Exploratory Laparotomy GEN, right hemicolectomy, abdominal washout, sigmoid colectomy: beni, colorectal anastomosis, loop ileostomy, catecholization of greater omentum - Leonid Silvestre MD Physical Therapy Treatment Note M2 PT-IP Current Condition Start: 11/25/18 14:31 Freq: NEEDED Status: Active Protocol: Document 11/26/18 11:07 AB (Rec: 11/26/18 12:00 AB [id number]) Physical Therapy Current Condition Current Condition Evaluation Date 11/26/18 Treatment Diagnosis large bowel obstruction s/p ex -lap and hemicolectomy; generalized weakness Onset Date 11/24/18 Precautions Abdominal Surgery Precautions Log Roll Lifting Restrictions Gait Belt above Incisional Area M3 PT-IP Subjective Start: 11/25/18 14:31 Freq: NEEDED Status: Active Protocol: Document 11/30/18 11:43 AW (Rec: 11/30/18 11:58 AW [id number]) Subjective Physical Therapy Visit Type Type Treatment Note Visit Start Time 11:15 Visit Stop Time 11:42 Total Visit Minutes 27 Number of IRONER OR PRESSER Visits 0 Physical Therapy Visit Comments Patient Comments Pt receiving acetaminophen upon therapist greeting. Pt agreeable to work with therapy Therapy Pain Assessment Pain When Pain Assessed During Mobility Pain Present Pain Present Pain Reported M4 PT-IP Mobility and Gait Start: 11/25/18 14:31 Freq: NEEDED Status: Active Protocol: Document 11/30/18 11:43 AW (Rec: 11/30/18 11:58 AW [id number]) PT-Bed Mobility Assessment Rolling Type of Rolling Log Rolling Level of Assist Contact Guard Assistance Supine to Sit Supine to Sit Moderate Assistance 2 Person Assistance Head of Bed Elevated Bedrails Scooting Scooting to Edge of Bed Moderate Assistance PT-Transfer Assessment Sit to and From Stand Sit to and from Stand Contact Guard Assistance 1 Person Assistance Use of Upper Extremities Equipment Orthotic/Prosthetic Devices or Brace: No Transfers Transfer Destination Chair Transfer Technique Pt ambulated with FWW Transfer Ability Level of Assist Contact Guard Assistance 1 Person Assistance Use of Upper Extremities Comments Mobility Comments Pt able to log roll to R side with CGA and to use arms appropriately to push up from sidelying with mod A x 2 and verbal cues for hand placement , sequencing Gait Assessment Gait Gait Assistance Required: Contact Guard Assist Distance (Feet) 70 Assistive Devices Assistive Device Gait Belt Front Wheeled Walker Orthotic/Prosthetic Devices or Brace: No Gait Deviations General Gait Pattern Decreased Stride Length Decreased Feet Clearance Factors Limiting Gait Function Factors Limiting Gait Function Decreased Activity Tolerance Decreased Strength Pain Comments Gait Comments Pt required verbal cues to keep walker closer to her body for increased support and stability PT-Balance Assessment Sitting Balance and Reactions Static Sitting Balance Ability Good Dynamic Sitting Balance Ability Good Standing Balance and Reactions Static Standing Balance Ability Good Dynamic Standing Balance Ability Fair M5 PT-IP Objective Assessments Start: 11/25/18 14:31 Freq: NEEDED Status: Active Protocol: Document 11/26/18 11:07 AB (Rec: 11/26/18 12:00 AB [id number]) Orientation Orientation/Cognition Level of Alertness Alert Orientation Name Age Place Situation Language Function Ability No Deficits Noted Safety Awareness Understands Safety Issues Memory Description No Deficits Noted Gross Range of Motion Lower Extremity ROM Assessment Within Functional Limits Strength Lower Extremity Strength Assessment Within Functional Limits Coordination Assessment Gross Coordination Gross Coordination WNL Sensation Assessment Sensation Gross Sensation WNL Muscle Tone Muscle Tone WNL Yes M6 PT-IP Treatment Start: 11/25/18 14:31 Freq: NEEDED Status: Active Protocol: Document 11/29/18 12:40 HH (Rec: 11/29/18 12:52 HH [email or web address]) Physical Therapy Treatment Education Education Provided Safety M7 PT-IP Assessment and Plan Start: 11/25/18 14:31 Freq: NEEDED Status: Active Protocol: Document 11/30/18 11:43 AW (Rec: 11/30/18 11:58 AW [id number]) PT Summary Assessment and Plan Potential Rehabilitation Potential Good Status of Condition at Evaluation Stable Summary Impairments Pain ROM Strength Balance Coordination Sensation Bed Mobility Transfers Gait Activity Tolerance Progress Towards Goals Progressing Toward Goals Slow Progress due to Pain Slow Progress due to Activity Tolerance Assessment Summary Pt continues to require assistance for bed mobility, especially log rolling and pushing up from sidelying, but level of assist has decreased since previous session. She was able to progress gait distance with decreased level of assist. Pt educated to increase out of bed time daily as tolerated. Pt agreeable to PT recommendation for SNF rehab stay to improve strength and activity tolerance before anticipated return to home alone. Goals Bed Mobility Goal Standby Assistance Transfer Goal Independent Front Wheeled Walker Gait Goal Independent Front Wheel Walker Gait Distance 200 Other Goals to improve ambulation ~ 250 ft least restrictive AD or without AD Days to Meet Goals 10 Frequency of Treatment Frequency Of Treatment Once a Day Treatment Plan Physical Therapy Treatment Plan Bed Mobility Training Transfer Training Gait Training Therapeutic Exercise Balance Retraining Post Op Education Discharge Planning Hot or Cold Pack Neuromuscular Re-ed Coordination Retraining Manual Therapy Recommendations To Nursing Amount of Assist Needed 1 Person Assist Discharge Recommendations PT Discharge Recommendations SNF Rehab Equipment Needed for Home Before FWW if not safe with other AD/ Discharge without AD
[2018-11-30] MEDS: OXYCODONE IR 10 MG TABLET PO ×2 (12:18→15:59)
[2018-11-30] MEDS: POTASSIUM CHLORIDE IV (18:42)
[2018-11-30] MEDS: LYTES IV (18:42)
[2018-11-30] MEDS: DEXT IV (18:42)
[2018-11-30] MEDS: [UNRECOGNIZED DRUG - OTHER] IV (18:42)
[2018-11-30] MEDS: CALCIUM IV (18:42)
[2018-11-30] MEDS: FAT EMULSIONS 50 GM/250 ML EMULSION IV (18:45)
[2018-11-30] MEDS: GABAPENTIN 400 MG CAPSULE 800 MG PO (22:11)
[2018-12-01] VITALS (7 sets, daily range): BP systolic 132–161; BP diastolic 69–82; PULSE 89–93; RESP 15–18; TEMP 36.5–37.4; O2SAT 95–98
[2018-12-01] MEDS: ACETAMINOPHEN 325 MG TABLET 650 MG PO ×4 (00:23→17:04)
[2018-12-01] MEDS: HYDROMORPHONE 0.5 MG INJ IV (03:52)
[2018-12-01] MEDS: PIPERACILLIN-TAZO 3.375 GM/50 ML FROZ.PIGGY IV ×4 (04:31→21:48)
[2018-12-01] MEDS: INSULIN ASPART 100 UNIT/ML INSULN PEN SUBCUT ×3 (06:24→19:29)
[2018-12-01] MEDS: HEPARIN 5,000 UNIT/ML VIAL 5000 UNIT SUBCUT (06:25)
--- NOTE | 2018-12-01 06:41 | PC.NURSE ---
Colostomy output= 295mL green/brown liquid stool. Bennie drain output=5mL yellow serous fluid Pts pain has been under control. Rating mostly 3-4 out of 10. Requested IV dilaudid during the middle of the night for some cramping. Spoke to pt about trying to transition to the PO Oxycodone, Pt understanding but wants to try that later maybe as she says the dilaudid helps her the most. TPN running as ordered. Lipids infused. Drinking plenty of water and frequently belches after. Compression stockings and b/l SCDs on throughout the night. Tele: JANEY
[2018-12-01 07:11] LABS: Add Manual Diff / Slide Review NO; Basophils Absolute Auto 0 /uL (0-100); Basophils Percent Auto 0.3 % (0-2); Eosinophils Absolute Auto 300 /uL (0-450); Hematocrit 33.6 % (36-46); Hemoglobin 11.3 g/dL (12.0-16.0); Lymphocytes Absolute Auto 1500 /uL (1100-4500); Lymphocytes Percent Auto 14.8 % (25-40); Mean Corpuscular HGB Conc 33.6 % (30-36); Mean Corpuscular Hemoglobin 29.6 PG (26-34); Mean Corpuscular Volume 88.1 fL (80-100); Monocytes Absolute Auto 800 /uL (0-900); Monocytes Percent Auto 7.5 % (3-14); Neutrophils Absolute Auto 7800 /uL (1500-7000); Neutrophils Percent Auto 74.4 % (50-75); Platelet Count 278 X10^3/uL (150-400); Red Blood Cell Count 3.82 X10^6/uL (4.0-5.2); Red Cell Distribution Width 13.4 % (11.6-14.8); White Blood Cell Count 10.5 X10^3/uL (4.5-11.0)
[2018-12-01 07:27] LABS: Alanine Aminotransferase 20 IU/L (9-52); Albumin 2.6 g/dL (3.5-5.0); Albumin Globulin Ratio 0.9 (1.0-2.8); Alkaline Phosphatase 84 U/L (38-126); Aspartate Aminotransferase 28 IU/L (14-36); BUN Creatinine Ratio 21.7 (6-22); Bilirubin Total 0.3 mg/dL (0.2-1.3); Blood Urea Nitrogen 13 mg/dL (7-17); Calcium 8.2 mg/dL (8.4-10.2); Carbon Dioxide 32 mmol/L (22-32); Chloride 102 mmol/L (98-107); Estimated Glomerular Filt Rate > 60.0 mL/min (>60); Globulin 2.8 g/dL (1.7-4.1); Glucose 129 mg/dL (80-110); HEMOLYSIS < 15 (0-50); Potassium 4.1 mmol/L (3.4-5.1); Sodium 136 mmol/L (137-145); Total Protein 5.4 g/dL (6.3-8.2)
[2018-12-01] MEDS: OXYCODONE IR 10 MG TABLET PO ×4 (08:55→21:46)
--- NOTE | 2018-12-01 10:29 | P.PN_ITS ---
Subjective Date Patient Seen: 12/01/18 Time Patient Seen: 09:00 Interval history: well over all drinking ample liquid - ate oatmeal with out difficulty abd pain moderate ostomy functioning Per PT notes needs SNF rehab - not mobilizing independently Exam Vital Signs (past 8 hours): - 12/01/18 06:15 12/01/18 07:55 12/01/18 08:21 Temperature 98.7 F 99 F Pulse Rate 89 92 H Respiratory Rate 16 18 Blood Pressure 136/69 132/81 Pulse Oximetry 98 97 95 Oxygen Delivery Method Room Air Oxygen Flow Rate 0 Narrative Exam Narrative: well appearing breathing comfortably RRR abd soft, minimally tender, ostomy with good output, pink Wound packed WTD periphery warm Objective Labs Result Diagrams: 12/01/18 06:48 12/01/18 06:48 Labs: Laboratory Results - last 24 hr 12/01/18 12/01/18 06:48 06:48 WBC 10.5 RBC 3.82 L Hgb 11.3 L Hct 33.6 L MCV 88.1 MCH 29.6 MCHC 33.6 RDW 13.4 Plt Count 278 Neut % (Auto) 74.4 Lymph % (Auto) 14.8 L Coleman % (Auto) 7.5 Eos % (Auto) 3.0 Baso % (Auto) 0.3 Neut # (Auto) 7800 H Lymph # (Auto) 1500 Coleman # (Auto) 800 Eos # (Auto) 300 Baso # (Auto) 0 Sodium 136 L Potassium 4.1 Chloride 102 Carbon Dioxide 32 BUN 13 Creatinine 0.60 Estimated GFR > 60.0 BUN/Creatinine Ratio 21.7 Glucose 129 H Calcium 8.2 L Total Bilirubin 0.3 AST 28 ALT 20 Alkaline Phosphatase 84 Total Protein 5.4 L Albumin 2.6 L Globulin 2.8 Albumin/Globulin Ratio 0.9 L Assessment & Plan Assessment & Plan narrative: 63 yo F POD6 after exlap with R colectomy, sigmoid colectomy, loop ileostomy with anastamosis x2 for obstructing sigmoid mass, with cecal perforation. Now slowly recovering. 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
--- NOTE | 2018-12-01 10:33 | PC.NURSE ---
Day shift: Pt medicated with 10mg oxycodone prior to dressing change and the change was painful for Pt. When completed Pt was tearful. IV Dilaudid d/c'd by . Was not able to give that. Pt understood that for SNF IV pain meds would not be used. Call light in reach. Surgical areas show no s/s of infection.
[2018-12-01] MEDS: METHOCARBAMOL 500 MG TABLET 750 MG PO ×3 (12:02→21:45)
[2018-12-01] MEDS: ENOXAPARIN 30 MG/0.3 ML SYRINGE SUBCUT ×2 (12:10→21:46)
--- NOTE | 2018-12-01 13:39 | CM.DPC ---
DCP/continued: Reviewed chart. Spoke with Khadijah Funes with wound care, she reports patient currently not with wound vac. Currently patient weaning off TPN. Current d/c plan is for patient to go to SNF for new colostomy training, wound care, and therapy. First documented SNF choice is [facility]. [employer]ER placed call to admit left vm with information about above patient needs. In addition, faxed updated clinical to [facility] for review. Per previous CM notes they are working on authorization with [employer]. P: [facility] if authorized. CM team to follow closely. DUONG Sexton
--- NOTE | 2018-12-01 14:00 | PC.NURSE ---
Ostomy Nurse Consult Note Erinn in bed and a bit weepy. She states she is finally understanding what has happened to her and she states she needs sometime to get some jaky. She did not want to watch me change out her ileostomy appliance so I got her a wash cloth and she placed it over her eyes. Her ileostmy is producing greenish liquid. She has started to eat soft foods, and is tolerating this diet well. I removed her appliance. Her stoma is moist,beefy red and budded an inch above her abdomen plane. Her stoma measures 30mm. The eugenia-stomal skin is intact. I placed her in a two piece 45mm Moldable wafer with clear, non-filtered pouch. I explained everything I did and told her that later this week I will have her practice with me and we will review the [facility] New Patient guide I gave her. I did speak with Adri from Care Management regarding discharge planning. So far I have not heard anything regarding using a Negative Pressure Wound Vac and at this point she is doing well with wet to damp dressing changes.
--- NOTE | 2018-12-01 15:37 | PT.IPTN ---
Current Diagnoses Diverticulitis of large intestine with perforation and abscess without bleeding (11/24/18) Surgery Performed Operation Date: 11/25/18 00:35 Actual Procedures p Exploratory Laparotomy GEN, right hemicolectomy, abdominal washout, sigmoid colectomy: beni, colorectal anastomosis, loop ileostomy, catecholization of greater omentum - Leonid Silvestre MD Physical Therapy Treatment Note M2 PT-IP Current Condition Start: 11/25/18 14:31 Freq: NEEDED Status: Active Protocol: Document 11/26/18 11:07 AB (Rec: 11/26/18 12:00 AB [id number]) Physical Therapy Current Condition Current Condition Evaluation Date 11/26/18 Treatment Diagnosis large bowel obstruction s/p ex -lap and hemicolectomy; generalized weakness Onset Date 11/24/18 Precautions Abdominal Surgery Precautions Log Roll Lifting Restrictions Gait Belt above Incisional Area M3 PT-IP Subjective Start: 11/25/18 14:31 Freq: NEEDED Status: Active Protocol: Document 12/01/18 15:00 CLB (Rec: 12/01/18 15:37 CLB [email or web address]) Subjective Physical Therapy Visit Type Type Treatment Note Visit Start Time 15:00 Visit Stop Time 15:19 Total Visit Minutes 19 Number of LAB REP Visits 1 Therapy Pain Assessment Pain When Pain Assessed During Mobility Pain Present Pain Present Pain Reported Location Abdomen Scale Used pain scale not stated Pain Management Techniques Modification of Treatment Re-positioning Timing of Activity with Medications M4 PT-IP Mobility and Gait Start: 11/25/18 14:31 Freq: NEEDED Status: Active Protocol: Document 12/01/18 15:00 CLB (Rec: 12/01/18 15:37 CLB [email or web address]) PT-Bed Mobility Assessment Rolling Type of Rolling Log Rolling Level of Assist Contact Guard Assistance Supine to Sit Supine to Sit Moderate Assistance 2 Person Assistance Head of Bed Elevated Bedrails Scooting Scooting to Edge of Bed Moderate Assistance PT-Transfer Assessment Sit to and From Stand Sit to and from Stand Contact Guard Assistance 1 Person Assistance Use of Upper Extremities Equipment Transfer Assistive Device Gait Belt Front Wheeled Walker Orthotic/Prosthetic Devices or Brace: No Transfers Transfer Destination Chair Transfer Technique Pt ambulated with FWW Transfer Ability Level of Assist Contact Guard Assistance 1 Person Assistance Use of Upper Extremities Comments Mobility Comments Pt required cues for log roll sequencing and Mod A once in sidelying to full seated position. Pt needed assist with scooting with use of draw sheet. Gait Assessment Gait Gait Assistance Required: Contact Guard Assist Distance (Feet) 70 Assistive Devices Assistive Device Gait Belt Front Wheeled Walker Orthotic/Prosthetic Devices or Brace: No Gait Deviations General Gait Pattern Decreased Stride Length Decreased Feet Clearance Factors Limiting Gait Function Factors Limiting Gait Function Decreased Activity Tolerance Decreased Strength Pain Comments Gait Comments Pt uses small step through gait pattern and used walker appropriately. Pt needed assist with IV lines. M5 PT-IP Objective Assessments Start: 11/25/18 14:31 Freq: NEEDED Status: Active Protocol: Document 11/26/18 11:07 AB (Rec: 11/26/18 12:00 AB [id number]) Orientation Orientation/Cognition Level of Alertness Alert Orientation Name Age Place Situation Language Function Ability No Deficits Noted Safety Awareness Understands Safety Issues Memory Description No Deficits Noted Gross Range of Motion Lower Extremity ROM Assessment Within Functional Limits Strength Lower Extremity Strength Assessment Within Functional Limits Coordination Assessment Gross Coordination Gross Coordination WNL Sensation Assessment Sensation Gross Sensation WNL Muscle Tone Muscle Tone WNL Yes M6 PT-IP Treatment Start: 11/25/18 14:31 Freq: NEEDED Status: Active Protocol: Document 11/29/18 12:40 HH (Rec: 11/29/18 12:52 HH [email or web address]) Physical Therapy Treatment Education Education Provided Safety M7 PT-IP Assessment and Plan Start: 11/25/18 14:31 Freq: NEEDED Status: Active Protocol: Document 12/01/18 15:00 CLB (Rec: 12/01/18 15:37 CLB [email or web address]) PT Summary Assessment and Plan Potential Rehabilitation Potential Good Status of Condition at Evaluation Stable Summary Impairments Pain ROM Strength Balance Coordination Sensation Bed Mobility Transfers Gait Activity Tolerance Progress Towards Goals Progressing Toward Goals Slow Progress due to Pain Slow Progress due to Activity Tolerance Assessment Summary Pt requires assist with log rolling with bed tilted to right 5 degrees. Pt needs cues for logroll sequencing and Mod A from sidelying to full seated position. Once pt is up ambulating she requires SBA as pt is steady with ambulation. Goals Bed Mobility Goal Standby Assistance Transfer Goal Independent Front Wheeled Walker Gait Goal Independent Front Wheel Walker Gait Distance 200 Other Goals to improve ambulation ~ 250 ft least restrictive AD or without AD Days to Meet Goals 10 Frequency of Treatment Frequency Of Treatment Once a Day Treatment Plan Physical Therapy Treatment Plan Bed Mobility Training Transfer Training Gait Training Therapeutic Exercise Balance Retraining Post Op Education Discharge Planning Hot or Cold Pack Neuromuscular Re-ed Coordination Retraining Manual Therapy Other Recommendations and Next Treatment logroll Focus bed mobility, transfers, ambulation Recommendations To Nursing Amount of Assist Needed 1 Person Assist Discharge Recommendations PT Discharge Recommendations SNF Rehab Equipment Needed for Home Before FWW if not safe with other AD/ Discharge without AD
--- NOTE | 2018-12-01 18:21 | OT.IP.EVAL ---
Current Diagnoses Diverticulitis of large intestine with perforation and abscess without bleeding (11/24/18) Surgery Performed Operation Date: 11/25/18 00:35 Actual Procedures p Exploratory Laparotomy GEN, right hemicolectomy, abdominal washout, sigmoid colectomy: beni, colorectal anastomosis, loop ileostomy, catecholization of greater omentum - Leonid Silvestre MD Past Medical History (Last Updated 11/27/18 @ 00:44 by JU Vizcarra) Anxiety (Acute) Large bowel obstruction (Acute) Obesity (Acute) Surgical History (Last Updated 11/27/18 @ 00:44 by JU Vizcarra) History of resection of large bowel (Acute) Occupational Therapy Inpatient Evaluation/Re-Eval M1 PT/OT-IP Prior Functional Status Start: 12/01/18 17:33 Freq: NEEDED Status: Active Protocol: Document 12/01/18 17:34 [facility] (Rec: 12/01/18 18:21 [facility] [email or web address]) Medical Review Prior Functional Status Medical History Reviewed Yes Communication able to make needs known Mobility and Gait pt stated that she is independent with all mobilities and ambulation without AD Activities of Daily Living and IADL's Completely independent with ADl's and IADL's. 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 Social History Household Members none Living Arrangements House Number of Floors (Floors) One Floor Number of Stairs To Enter/Railing? no steps to enter Home Environment High Toilet Walk in Shower Additional Social History Comment pt stated that she has friends that can assist her but not stay with her M2 OT-IP Current Condition Start: 12/01/18 17:33 Freq: Status: Active Protocol: Document 12/01/18 17:34 [facility] (Rec: 12/01/18 18:21 [facility] [email or web address]) Occupational Therapy Current Condition Current Condition Evaluation Date 12/01/18 Treatment Diagnosis Large bowel obstruction s/p ex -lap and hemicolectomy, weakness Post Operative Precautions Abdominal Surgery Precautions Log Roll Lifting Restrictions Gait Belt above Incisional Area Weight Bearing Status Weight Bearing Status Weight Bear as Tolerated M3 OT- IP Subjective and Pain Start: 12/01/18 17:33 Freq: Status: Active Protocol: Document 12/01/18 17:34 [facility] (Rec: 12/01/18 18:21 [facility] [email or web address]) OT- Subjective Occupational Therapy Visit Type Type Initial Evaluation Visit Start Time 14:53 Visit Stop Time 15:25 Occupational Therapy Visit Comments Patient Comments Pt tired but willing to get up for OT eval. 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 Goals Pt would like to go to skilled rehab prior to going home. OT Pain Assessment Pain When Pain Assessed At Rest Pain Present Pain Present Pain Reported Location Abdomen Intensity 4 Scale Used Numeric (1 - 10) M4 OT- IP ADL's Start: 12/01/18 17:33 Freq: Status: Active Protocol: Document 12/01/18 17:34 [facility] (Rec: 12/01/18 18:21 [facility] [email or web address]) OT [id number] General Evaluation Self-Feeding Ability Independent OT ADL-Grooming General Evaluation Areas Needing Assistance Retrieving/Set-up of Grooming Items Comments OT Grooming Comments Pt able to do grooming needs after set-up while sitting in the recliner. Pt too tired to try to do grooming while standing at this time. OT ADL-Oral Care General Eval Oral Care Ability Independent OT ADL-Dressing General Eval Lower Body Dressing Ability Maximum Assistance Areas Needing Assistance Socks Comments OT Dressing Comments Pt not able to bend down to her feet and MAX A for sock needs. Began to educate pt on use of lower body adaptive equipment for needs. Too practice more tomorrow. Pt states does not need to wear socks at home and has slip on shoes. OT ADL-Toileting Comments OT Toileting Comments Pt has catheter in and did not have the urge for bowel movement at this time. OT ADL-Bathing Comments OT Bathing Comments Pt able to use wash cloth to wash her face and under her arms. Pt's aid to help to assist with her hair later. 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 Operator No Deficits Identified M6 OT- IP Functional Cognition Start: 12/01/18 17:33 Freq: Status: Active Protocol: Document 12/01/18 17:34 [facility] (Rec: 12/01/18 18:21 [facility] [email or web address]) Cognitive Factors Limiting Selfcare Function Cognitive Ability Level of Alertness Alert Patient Orientation Name Age Birthday Month Date Year Day of Week Place Situation Attention Span Ability Capable of Focused Attention Capable of Sustained Attention Ability to Follow Commands Able to Follow Multi-Step Commands Memory Description No Deficits Noted Safety Awareness No Deficits Noted Problem Solving Ability No deficits Noted Cognitive Comments Cognitive Assessment Comments No cognitive deficits noted. OT- Vision and Hearing OT- Hearing Assessment OT- Hearing Assessment WFL OT- Vision Assessment Visual Acuity Glasses For Reading M7 OT- IP Mobility and Balance Start: 12/01/18 17:33 Freq: Status: Active Protocol: Document 12/01/18 17:34 [facility] (Rec: 12/01/18 18:21 [facility] [email or web address]) OT- Bed Mobility Assessment Rolling Type of Rolling Roll to Right Supine to Sit Supine to Sit Assist Moderate Assistance 2 Person Assistance Sit to Supine Sit to Supine Assist Moderate Assistance 2 Person Assistance OT-Transfer Assessment Sit to and From Stand Sit to and from Stand Contact Guard Assistance Transfers Transfer Ability Minimal Assistance Technique Transfer Destination Bed Chair Transfer Technique Stand Step Pivot Devices Transfer Assistive Devices Gait Belt Front Wheeled Walker Comments Mobility Comments MODA x 2 in addition to use of hospital tilt mode for bed to assist to help roll pt as well. Pt having trouble coordinating use of arms and legs to help get up in addition having lots of abdominal pain also making bed mobility very difficulty for her. OT- Gait Assessment Gait Gait Assistance Required: Contact Guard Assist Assistive Devices Assistive Device Gait Belt Front Wheeled Walker OT- Balance Assessment Sitting Balance and Reactions Static Sitting Balance Ability Normal Standing Balance and Reactions Static Standing Balance Ability Good M8 OT- IP Objective Assessments Start: 12/01/18 17:33 Freq: Status: Active Protocol: Document 12/01/18 17:34 [facility] (Rec: 12/01/18 18:21 [facility] [email or web address]) OT Gross Range of Motion Upper Extremity Range of Motion Assessment Within Functional Limits OT Strength Comments Strength Comments WFL for needs. NOT formally tested due to recent abdominal surgery. OT-Muscle Tone Assessment Muscle Tone WNL Yes M9 OT- IP Assessment and Plan Start: 12/01/18 17:33 Freq: Status: Active Protocol: Document 12/01/18 17:34 [facility] (Rec: 12/01/18 18:21 [facility] [email or web address]) OT Summary Assessment and Plan Potential Rehabilitation Potential Good Analytic Complexity at Evaluation Low Summary OT Impairments Pain Strength Balance Functional Mobility Dressing Toileting Bathing Toilet Transfers Shower Transfers Progress Towards Goals Slow Progress due to Pain Slow Progress due to Medical Issues Assessment Summary Pt low complexity and main barrier is decreased bed mobility, endurance, strength, and self-care need and not needing assistance for ADl's and functional mobility. 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 Goals Grooming Goal Independent Dressing Goal Independent [place] Traw[place] Sock Aid Toileting Goal Independent Bathing Goal Standby Assistance Toilet Transfer Goal Independent Shower Transfer Goal Standby Assistance 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 Education Goal Demonstrate Energy Conservation and Pacing OT-Other Goals Grooming goal while standing. Pt to have good understanding for energy conservation and work simplification needs. Days to Meet Goals 5 Frequency of Treatment Frequency Of Treatment Once a Day Treatment Plan OT Treatment Plan ADL Training Functional Mobility Patient/Family Education Discharge Planning Other Treatment Recommendations and Next Standing to grooming, and Treatment Focus practice for lower body dressing with adaptive equipment. Discharge Recommendations OT Discharge Recommendations SNF Rehab Home Equipment Needs Shower chair, fww
[2018-12-01] MEDS: GABAPENTIN 400 MG CAPSULE 800 MG PO (21:46)
[2018-12-02] VITALS (10 sets, daily range): BP systolic 123–151; BP diastolic 67–85; PULSE 80–113; RESP 15–20; TEMP 36.4–37.3; O2SAT 91–96
[2018-12-02] MEDS: ACETAMINOPHEN 325 MG TABLET 650 MG PO ×5 (00:21→23:45)
[2018-12-02] MEDS: PIPERACILLIN-TAZO 3.375 GM/50 ML FROZ.PIGGY IV ×2 (05:58→10:51)
[2018-12-02] MEDS: OXYCODONE IR 10 MG TABLET PO ×2 (08:29→11:41)
--- NOTE | 2018-12-02 09:25 | CM.DPC ---
DCP/continued: Reviewed chart. Patient currently off of TPN. Spoke with Lyla from [facility]. She is attempting to obtain authorization from [employer]. Provided Lyla with updated notes from wound care and therapy. P: [facility] attempting authorization from [employer] for short SNF stay. RN updated. Patient has not been cleared medically for discharge. DUONG Sexton
[2018-12-02] MEDS: METHOCARBAMOL 500 MG TABLET 750 MG PO ×3 (10:20→17:05)
[2018-12-02] MEDS: ENOXAPARIN 30 MG/0.3 ML SYRINGE SUBCUT (10:20)
--- NOTE | 2018-12-02 10:48 | OT.IP.TRT ---
Current Diagnoses Diverticulitis of large intestine with perforation and abscess without bleeding (11/24/18) Surgery Performed Operation Date: 11/25/18 00:35 Actual Procedures p Exploratory Laparotomy GEN, right hemicolectomy, abdominal washout, sigmoid colectomy: beni, colorectal anastomosis, loop ileostomy, catecholization of greater omentum - Leonid Silvestre MD Occupational Therapy Treatment Note M2 OT-IP Current Condition Start: 12/01/18 17:33 Freq: Status: Active Protocol: Document 12/01/18 17:34 [facility] (Rec: 12/01/18 18:21 [facility] [id number]) Occupational Therapy Current Condition Current Condition Evaluation Date 12/01/18 Treatment Diagnosis Large bowel obstruction s/p ex -lap and hemicolectomy, weakness Post Operative Precautions Abdominal Surgery Precautions Log Roll Lifting Restrictions Gait Belt above Incisional Area Weight Bearing Status Weight Bearing Status Weight Bear as Tolerated M3 OT- IP Subjective and Pain Start: 12/01/18 17:33 Freq: Status: Active Protocol: Document 12/02/18 10:58 PJM (Rec: 12/03/18 08:41 PJM [id number]) OT- Subjective Occupational Therapy Visit Type Type Treatment Note Visit Start Time 10:18 Visit Stop Time 10:58 Total Visit Minutes 40 Occupational Therapy Visit Comments Patient Comments Getting out of bed is the hard part. 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 Pain Assessment Pain When Pain Assessed After Treatment Pain Present Pain Present Pain Reported Location Abdomen Intensity 5 Scale Used Numeric (1 - 10) Description Aching Acute Pain Behaviors Facial Grimacing Guarding Management Techniques Distraction Re-positioning Timing of Activity with Medications M4 OT- IP ADL's Start: 12/01/18 17:33 Freq: Status: Active Protocol: Document 12/02/18 10:58 PJM (Rec: 12/03/18 08:41 PJM [id number]) OT FIX-Kkaw-Pmcnzzd General Evaluation Self-Feeding Ability Independent OT ADL-Grooming General Evaluation Grooming Ability Standby Assistance Comments OT Grooming Comments Pt stood at sink 4 min with FWW OT ADL-Oral Care General Eval Oral Care Ability Standby Assistance OT ADL-Dressing General Eval Lower Body Dressing Ability Maximum Assistance Areas Needing Assistance Socks Shoes Comments OT Dressing Comments Provided education re: adapted techniques for lower body dressing with mapping specialist, sock aid, long shoe horn as pt cannot reach feet due to body size and abdominal incision pain. OT ADL-Toileting General Evaluation Toileting Ability Total Assistance Areas Needing Assistance Empty Catheter or Colostomy Comments OT Toileting Comments pt has loza and new colostomy at present OT ADL-Bathing Comments OT Bathing Comments pt has not yet been cleared by surgeon for bathing M6 OT- IP Functional Cognition Start: 12/01/18 17:33 Freq: Status: Active Protocol: Document 12/02/18 10:58 PJM (Rec: 12/03/18 08:41 PJM [id number]) Cognitive Factors Limiting Selfcare Function Cognitive Ability Level of Alertness Alert Patient Orientation Name Age Birthday Month Date Year Day of Week Place Situation Attention Span Ability Capable of Focused Attention Capable of Sustained Attention Ability to Follow Commands Able to Follow One Step Commands Memory Description No Deficits Noted Cognitive Comments Cognitive Assessment Comments Pt asking appropriate questions about adapted ADL/ IADL techniques M7 OT- IP Mobility and Balance Start: 12/01/18 17:33 Freq: Status: Active Protocol: Document 12/02/18 10:58 PJM (Rec: 12/03/18 08:41 PJ [id number]) OT- Bed Mobility Assessment Rolling Type of Rolling Log Rolling Level of Assistance Contact Guard Assistance 1 Person Assistance Bedrails Supine to Sit Supine to Sit Assist Minimal Assistance 1 Person Assistance Scooting Scooting to Edge of Bed Minimal Assistance 1 Person Assistance OT-Transfer Assessment Sit to and From Stand Sit to and from Stand Contact Guard Assistance Transfers Transfer Ability Contact Guard Assistance Technique Transfer Destination Chair Transfer Technique Stand Step Pivot Devices Transfer Assistive Devices Gait Belt Front Wheeled Walker OT- Gait Assessment Gait Gait Assistance Required: Contact Guard Assist Distance (Feet) 20 Assistive Devices Assistive Device Gait Belt Front Wheeled Walker Comments Gait Ability Comments Pt moves very slowly and carefully. OT- Balance Assessment Sitting Balance and Reactions Static Sitting Balance Ability Good Dynamic Sitting Balance Ability Fair Standing Balance and Reactions Static Standing Balance Ability Good Dynamic Standing Balance Ability Fair M9 OT- IP Assessment and Plan Start: 12/01/18 17:33 Freq: Status: Active Protocol: Document 12/02/18 10:58 PJM (Rec: 12/03/18 08:41 PJ [id number]) OT Summary Assessment and Plan Potential Rehabilitation Potential Good Summary OT Impairments Pain Strength Balance Functional Mobility Dressing Toileting Bathing Toilet Transfers Shower Transfers Progress Towards Goals Progressing Toward Goals Assessment Summary Pt making daily progress. She was able to log roll without use of bed tilt feature today but still struggles with motor planning and scooting on edge of bed. Pt moves very slowly and carefully. She would benefit from wider FWW as she cannot approach sink closely with current FWW. Provided education re: energy conservation and pacing. Pt verbalizes understanding of all education re: adapted ADL techniques and demonstrates excellent effort and participation. Pt not safe to d/c home alone at this time as she lacks sufficient mobility skills and activity tolerance, and still needs significant assist with ostomy care, dressing, bathing , toileting and IADLS. Recommend SNF at d/c for further rehab services Goals Grooming Goal Independent Dressing Goal Independent Chief Revenue Officer Sock Aid Toileting Goal Independent Bathing Goal Standby Assistance Toilet Transfer Goal Independent Shower Transfer Goal Standby Assistance 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 Education Goal Demonstrate Energy Conservation and Pacing OT-Other Goals Grooming goal while standing. Pt to have good understanding for energy conservation and work simplification needs. Days to Meet Goals 5 Frequency of Treatment Frequency Of Treatment Once a Day Treatment Plan OT Treatment Plan ADL Training Functional Mobility Patient/Family Education Discharge Planning Discharge Recommendations OT Discharge Recommendations SNF Rehab Home Equipment Needs Shower chair, wide FWW
--- NOTE | 2018-12-02 11:05 | PT.IPTN ---
Current Diagnoses Diverticulitis of large intestine with perforation and abscess without bleeding (11/24/18) Surgery Performed Operation Date: 11/25/18 00:35 Actual Procedures p Exploratory Laparotomy GEN, right hemicolectomy, abdominal washout, sigmoid colectomy: beni, colorectal anastomosis, loop ileostomy, catecholization of greater omentum - Leonid Silvestre MD Physical Therapy Treatment Note M2 PT-IP Current Condition Start: 11/25/18 14:31 Freq: NEEDED Status: Active Protocol: Document 11/26/18 11:07 AB (Rec: 11/26/18 12:00 AB [id number]) Physical Therapy Current Condition Current Condition Evaluation Date 11/26/18 Treatment Diagnosis large bowel obstruction s/p ex -lap and hemicolectomy; generalized weakness Onset Date 11/24/18 Precautions Abdominal Surgery Precautions Log Roll Lifting Restrictions Gait Belt above Incisional Area M3 PT-IP Subjective Start: 11/25/18 14:31 Freq: NEEDED Status: Active Protocol: Document 12/02/18 11:05 [facility] (Rec: 12/02/18 11:31 [facility] [id number]) Subjective Physical Therapy Visit Type Type Treatment Note Visit Start Time 10:40 Visit Stop Time 11:06 Total Visit Minutes 26 Number of COLLEGE PRESIDENT Visits 2 Physical Therapy Visit Comments Patient Comments Pt up with OT. Therapy Pain Assessment Pain When Pain Assessed During Mobility Pain Present Pain Present Pain Reported Location Abdomen Intensity 5 Scale Used Numeric (1 - 10) M4 PT-IP Mobility and Gait Start: 11/25/18 14:31 Freq: NEEDED Status: Active Protocol: Document 12/02/18 11:05 GGD (Rec: 12/02/18 11:31 GGD [id number]) PT-Transfer Assessment Sit to and From Stand Sit to and from Stand Contact Guard Assistance 1 Person Assistance Use of Upper Extremities Equipment Transfer Assistive Device Gait Belt Front Wheeled Walker Orthotic/Prosthetic Devices or Brace: No Transfers Transfer Destination Chair Transfer Ability Level of Assist Contact Guard Assistance 1 Person Assistance Use of Upper Extremities Gait Assessment Gait Gait Assistance Required: Contact Guard Assist Distance (Feet) 80 Assistive Devices Assistive Device Gait Belt Front Wheeled Walker Orthotic/Prosthetic Devices or Brace: No Gait Deviations General Gait Pattern Decreased Stride Length Decreased Feet Clearance Factors Limiting Gait Function Factors Limiting Gait Function Decreased Activity Tolerance Decreased Strength Pain Comments Gait Comments Pt ambulates with a slow small step gait pattern. M5 PT-IP Objective Assessments Start: 11/25/18 14:31 Freq: NEEDED Status: Active Protocol: Document 11/26/18 11:07 AB (Rec: 11/26/18 12:00 AB [id number]) Orientation Orientation/Cognition Level of Alertness Alert Orientation Name Age Place Situation Language Function Ability No Deficits Noted Safety Awareness Understands Safety Issues Memory Description No Deficits Noted Gross Range of Motion Lower Extremity ROM Assessment Within Functional Limits Strength Lower Extremity Strength Assessment Within Functional Limits Coordination Assessment Gross Coordination Gross Coordination WNL Sensation Assessment Sensation Gross Sensation WNL Muscle Tone Muscle Tone WNL Yes M6 PT-IP Treatment Start: 11/25/18 14:31 Freq: NEEDED Status: Active Protocol: Document 11/29/18 12:40 [facility] (Rec: 11/29/18 12:52 [facility] [email or web address]) Physical Therapy Treatment Education Education Provided Safety M7 PT-IP Assessment and Plan Start: 11/25/18 14:31 Freq: NEEDED Status: Active Protocol: Document 12/02/18 11:05 GGD (Rec: 12/02/18 11:34 GGD [id number]) PT Summary Assessment and Plan Summary Assessment Summary Pt very guarded with mobility. She was able to progress gait distance, but is very slow moving. She needed cues for hand placement with transfer to chair. Frequency of Treatment Frequency Of Treatment Once a Day Treatment Plan Physical Therapy Treatment Plan Bed Mobility Training Transfer Training Gait Training Therapeutic Exercise Balance Retraining Post Op Education Discharge Planning Hot or Cold Pack Neuromuscular Re-ed Coordination Retraining Manual Therapy Recommendations To Nursing Amount of Assist Needed 1 Person Assist Discharge Recommendations PT Discharge Recommendations SNF Rehab
--- NOTE | 2018-12-02 12:38 | DIET.PN ---
Dietary Progress Note Dietary Progress Note Assessment: 63y F s/p left and right colon resections with primary anastomosis and diverting ileostomy. RD had nice conversation c pt. Pt reports 20# wt loss 10y ago but has been wt stable since. Trying to sell home and experiencing considerable stress. Has good support system, enjoys [employer] swimming. Reports always having nervous stomach in life. Pt wanting to eat healthier, tends to stress eat unhealthy foods. Discussed positive coping mechanisms, stress relationship to GI sx. Pt wants to try [facility], recc ONS bid for wound healing. TPN discontinued, pt trying to eat POs (100% last night). HT: 157.4cm WT: 117.5kg IBW: 50.1kg BMI: 47.4 (morbid obesity) Monitoring/Evaluations: PO advancement, I&Os, wt, ass. labs
--- NOTE | 2018-12-02 14:54 | PC.NURSE ---
DRSG CHANGED. ABDOMEN HAS ROUGH ERYTHEMIC AREAS DUE TO TAPE SENSITIVIES IN PLACES. INCISION LINE WITHOUT ERYTHEMA. DRSG 70% SATURATED INTO ABD PADS WITH MOSTLY SEROUS DRAINAGE/ SLIGHT SANG. WOUNDS LOOK CLEAN. 50% GRANULATION TISSUE AND 50% ADIPOSE TISSUE NOTED. 4X4'S WET WITH NS PACKED INTO WOUND, COVERED WITH DRY 4X4'S, ABD'S X3 AND SILK TAPE. CARE WAS TAKEN TO AVOID TAPE TO SENSITIVE AREAS. CHANGED SHAY DRAIN DRSG. SUTURE INTACT, W/ MILD ERYTHEMA. NO DRAINAGE. RLQ DENUDED SKIN WOUND (DUE TO TAPE) DRSG WAS CHANGED. SUPERFICIAL WOUND W/ 100% GRANULATION TISSUE. PLACED NEW ADAPTIC CUT TO FIT. 2X2'S X2 AND SILK TAPE.
--- NOTE | 2018-12-02 18:38 | PM.PN.1 ---
Subjective Date Patient Seen: 12/02/18 Time Patient Seen: 12:00 Interval history: Feeling well mobilizing with PT good ostomy output tolerating full liquid diet Exam Vital Signs (past 8 hours): - 12/02/18 12:00 12/02/18 15:40 12/02/18 17:43 Temperature 97.7 F 97.6 F Pulse Rate 80 94 H Respiratory Rate 18 18 Blood Pressure 138/69 123/67 Pulse Oximetry 95 96 Oxygen Delivery Method Room Air Oxygen Flow Rate 0 Narrative Exam Narrative: well NAD breathing easily on RA abd soft ostomy pink Objective Labs Result Diagrams: 12/01/18 06:48 12/01/18 06:48 Assessment & Plan Assessment & Plan narrative: 63 yo F POD7 after exlap with R colectomy, sigmoid colectomy, loop ileostomy with anastamosis x2 for obstructing sigmoid mass, with cecal perforation. Doing quite well. Ready for discharge to SNF tomorrow for rehab. 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
[2018-12-02] MEDS: NYSTATIN POWDER 15GM 1 APPLIC TOP (21:03)
[2018-12-02] MEDS: ENOXAPARIN 40 MG/0.4 ML SYRINGE SUBCUT (21:03)
[2018-12-03] VITALS (7 sets, daily range): BP systolic 118–140; BP diastolic 67–77; PULSE 92–97; RESP 16–18; TEMP 36.2–36.6; O2SAT 95–98
[2018-12-03] MEDS: MELATONIN 3 MG TABLET 6 MG PO
[2018-12-03] MEDS: POLYVINYL ALCOHOL DROPS 2 DROPS EYE-BOTH (00:18)
--- NOTE | 2018-12-03 00:21 | PC.NURSE ---
Addendum entered by Maria Isabel Bates R.N. 12/03/18 06:08: Catheter removed per MD order. Instructed in sx/prevention of UTI; verbalizes understanding. Denies pain at this time. Addendum entered by Maria Isabel Bates R.N. 12/03/18 02:15: Complains of 4/10 abdominal pain; medicated with Oxycodone. Original Note: Patient is alert and oriented, but very needy with multiple requests each time staff in room. Breath sounds diminished but CTA with RA sat of 93%. HRR but tachy at 106 bpm and elevated BP of 151/84. Denies nausea but reports earlier nausea when taking in food. BT present. Ileostomy patent; stoma beefy red. Passing liquid stool and gas via ileostomy. Indwelling catheter is patent; urine is clear yellow. Refuses catheter removal tonight but may be agreeable in the a.m. Bennie drain patent and compressed. Dressing to abdomen is CDI; wearing abdominal binder. Blister beneath left breast with exudry skin folds. Bruises bilateral hands and around PICC line. Is able to turn self in bed. When out of bed is assisted with walker and 1 assist. Wearing [place] stockings and SCD's applied during shift report. States incisional pain is 4/10; medicated with scheduled Tylenol but declines anything stronger at this time. Did request/medicated with Melatonin for sleep. Fall risk score is moderate; bed alarm is activated.
[2018-12-03] MEDS: OXYCODONE IR 5 MG TABLET PO ×3 (02:14→13:44)
[2018-12-03] MEDS: ACETAMINOPHEN 325 MG TABLET 650 MG PO ×4 (05:57→23:57)
[2018-12-03] MEDS: ENOXAPARIN 40 MG/0.4 ML SYRINGE SUBCUT ×2 (10:07→21:48)
[2018-12-03] MEDS: METHOCARBAMOL 500 MG TABLET 750 MG PO (10:08)
[2018-12-03] MEDS: NYSTATIN POWDER 15GM 1 APPLIC TOP ×2 (10:09→21:27)
[2018-12-03] MEDS: SODIUM CHLORIDE 0.9% FLUSH 10 ML IV ×2 (10:09→21:27)
--- NOTE | 2018-12-03 12:29 | OT.IP.TRT ---
Current Diagnoses Diverticulitis of large intestine with perforation and abscess without bleeding (11/24/18) Surgery Performed Operation Date: 11/25/18 00:35 Actual Procedures p Exploratory Laparotomy GEN, right hemicolectomy, abdominal washout, sigmoid colectomy: beni, colorectal anastomosis, loop ileostomy, catecholization of greater omentum - Leonid Silvestre MD Occupational Therapy Treatment Note M2 OT-IP Current Condition Start: 12/01/18 17:33 Freq: Status: Active Protocol: Document 12/01/18 17:34 [facility] (Rec: 12/01/18 18:21 [facility] [id number]) Occupational Therapy Current Condition Current Condition Evaluation Date 12/01/18 Treatment Diagnosis Large bowel obstruction s/p ex -lap and hemicolectomy, weakness Post Operative Precautions Abdominal Surgery Precautions Log Roll Lifting Restrictions Gait Belt above Incisional Area Weight Bearing Status Weight Bearing Status Weight Bear as Tolerated M3 OT- IP Subjective and Pain Start: 12/01/18 17:33 Freq: Status: Active Protocol: Document 12/03/18 1229 PJ (Rec: 12/03/18 16:19 PJ [id number]) OT- Subjective Occupational Therapy Visit Type Type Treatment Note Visit Start Time 12:08 Visit Stop Time 12:29 Total Visit Minutes 21 Notes Pt requesting to go to bathroom then abck to bed as chair is uncomfortable. 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 Assessed After Treatment Pain Present Pain Present Pain Reported Location Abdomen Intensity 6 Description Aching Acute Pain Behaviors Facial Grimacing Guarding M4 OT- IP ADL's Start: 12/01/18 17:33 Freq: Status: Active Protocol: Document 12/03/18 1229 PJM (Rec: 12/03/18 16:19 PJ [id number]) OT ADL-Grooming General Evaluation Grooming Ability Standby Assistance Comments OT Grooming Comments hand washing at sink OT ADL-Toileting General Evaluation Toileting Ability Moderate Assistance Areas Needing Assistance Perform Perineal Hygiene Devices Toileting Assistive Devices Grab Bars Raised Toilet Seat Comments OT Toileting Comments pt cannot reach to wipe bottom , will provide info re: toielt paper aids; SBA to wipe in standing after urination M7 OT- IP Mobility and Balance Start: 12/01/18 17:33 Freq: Status: Active Protocol: Document 12/03/18 1229 PJM (Rec: 12/03/18 16:19 [facility] [id number]) OT- Bed Mobility Assessment Rolling Type of Rolling Log Rolling Roll to Left Level of Assistance Contact Guard Assistance Supine to Sit Supine to Sit Assist Contact Guard Assistance Sit to Supine Sit to Supine Assist Moderate Assistance Scooting Scooting to Edge of Bed Contact Guard Assistance OT-Transfer Assessment Sit to and From Stand Sit to and from Stand Contact Guard Assistance Transfers Transfer Ability Contact Guard Assistance Technique Transfer Destination Bed Toilet Transfer Technique Stand Step Pivot Devices Transfer Assistive Devices Gait Belt Front Wheeled Walker OT- Gait Assessment Gait Gait Assistance Required: Contact Guard Assist Distance (Feet) 25 Assistive Devices Assistive Device Gait Belt Front Wheeled Walker Comments Gait Ability Comments pt moving more quickly today OT- Balance Assessment Sitting Balance and Reactions Static Sitting Balance Ability Good Dynamic Sitting Balance Ability Good Standing Balance and Reactions Static Standing Balance Ability Good Dynamic Standing Balance Ability Fair M9 OT- IP Assessment and Plan Start: 12/01/18 17:33 Freq: Status: Active Protocol: Document 12/03/18 1229 PJ (Rec: 12/03/18 16:19 [facility] [id number]) OT Summary Assessment and Plan Potential Rehabilitation Potential Good Summary OT Impairments Pain Strength Balance Functional Mobility Grooming Dressing Toileting Bathing Toilet Transfers Shower Transfers Progress Towards Goals Slow Progress due to Pain Slow Progress due to Medical Issues Assessment Summary Pt making slow steady daily progress. Requesting to use bed tilt feature to assist with rolling but does no need it. Improving bed mobility but still needs mod verbal cues for technique and mod assist to get BLE's up onto bed. Pt now has loza out and has been up to bathroom 3x this AM per her report. Ambulation with FWW faster today but she still moves very carefully due to abdominal pain. pt has abdominal binder in place. Pt is good rehab candidate with good effort and participation noted. Recommend SNF at d/c as pt is not safe to return home alone at this time. Goals Grooming Goal Independent Dressing Goal Independent Ab Initio Etl Developer Sock Aid Toileting Goal Independent Bathing Goal Standby Assistance Toilet Transfer Goal Independent Shower Transfer Goal Standby Assistance 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 Education Goal Demonstrate Energy Conservation and Pacing OT-Other Goals Grooming goal while standing. Pt to have good understanding for energy conservation and work simplification needs. Days to Meet Goals 5 Frequency of Treatment Frequency Of Treatment Once a Day Treatment Plan OT Treatment Plan ADL Training Functional Mobility Patient/Family Education Discharge Planning Discharge Recommendations OT Discharge Recommendations SNF Rehab Home Equipment Needs Shower chair, gladys FWW
--- NOTE | 2018-12-03 13:30 | PM.PN.1 ---
Subjective Date Patient Seen: 12/03/18 Time Patient Seen: 13:31 Interval history: Feeling quite well Tolerating on advancing diet -no on low residue Fully removed earlier today voice now without difficulty No increase in surgical drain output since fully removed -continues to diminish Ostomy continues with good output Improving energy Exam Vital Signs (past 8 hours): - 12/03/18 08:00 12/03/18 09:00 12/03/18 11:50 Temperature 97.7 F 97.4 F L Pulse Rate 93 H 97 H Respiratory Rate 16 18 Blood Pressure 138/69 118/67 Pulse Oximetry 95 96 96 Oxygen Delivery Method Room Air Oxygen Flow Rate 0 Narrative Exam Narrative: Well-appearing woman no acute distress Breathing comfortably on room air Regular rate and rhythm Abdomen minimally tender, ileostomy pink, good bilious output Drain very minimal output, serous, Wound unpacked -good granulation tissue -in no adjacent skin induration or erythema Objective Labs Result Diagrams: 12/01/18 06:48 12/01/18 06:48 Assessment & Plan Assessment & Plan narrative: 63 yo F POD8 after exlap with R colectomy, sigmoid colectomy, loop ileostomy with anastamosis x2 for obstructing sigmoid mass, with cecal perforation. Doing quite well. Ready for discharge to SNF today. Awaiting approval/bed on PO pain regiment, melatonin for sleep Continue low res diet Fully and surgical drain removed Wet to dry packing continues to abdominal wound which overall continues to look well Ongoing PT, ostomy care D/c to SNF rehab whenever available-removed PICC line prior to discharge obesity enox dosing for dvt proph Quality VTE Deep Vein Thrombosis/Pulmonary Embolism Present on Admission: No
--- NOTE | 2018-12-03 15:56 | CM.DPNOTE ---
DCP Cont: Pt ready for DC today, DC order to SNF completed by Dr Silvestre, pt remains agreeable. This MORTGAGE ADVISOR working w/ Lyla at [facility] throughout the day to determine whether [facility] would authorize SNF stay? As of 1599, pt's insurance had not made a determination yet. No b/u plan at this time for pt, there is no one available to her at home to assist w/her x2 daily wound dressing changes and she can not manage these independently. This MORTGAGE ADVISOR remains hopeful that an auth can be secured [id number]. Available to assist in this auth process as needed, Lyla w/ [facility] aware. Following very closely. DUONG Parsons
--- NOTE | 2018-12-03 16:50 | PT.IPTN ---
Current Diagnoses Diverticulitis of large intestine with perforation and abscess without bleeding (11/24/18) Surgery Performed Operation Date: 11/25/18 00:35 Actual Procedures p Exploratory Laparotomy GEN, right hemicolectomy, abdominal washout, sigmoid colectomy: beni, colorectal anastomosis, loop ileostomy, catecholization of greater omentum - Leonid Silvestre MD Physical Therapy Treatment Note M2 PT-IP Current Condition Start: 11/25/18 14:31 Freq: NEEDED Status: Active Protocol: Document 11/26/18 11:07 AB (Rec: 11/26/18 12:00 AB [id number]) Physical Therapy Current Condition Current Condition Evaluation Date 11/26/18 Treatment Diagnosis large bowel obstruction s/p ex -lap and hemicolectomy; generalized weakness Onset Date 11/24/18 Precautions Abdominal Surgery Precautions Log Roll Lifting Restrictions Gait Belt above Incisional Area M3 PT-IP Subjective Start: 11/25/18 14:31 Freq: NEEDED Status: Active Protocol: Document 12/03/18 16:48 AB (Rec: 12/03/18 16:50 AB [id number]) Subjective Physical Therapy Visit Type Type Patient Refusal Notes pt refused PT. stated that she has been up 4x this afternoon to use the toilet and was standing up by the sink to do grooming and refused PT. also stated that she just go settled in her bed with ice pack for her back.
[2018-12-03] MEDS: OXYCODONE IR 10 MG TABLET PO (18:01)
[2018-12-03] MEDS: GABAPENTIN 400 MG CAPSULE 800 MG PO (21:48)
[2018-12-04] VITALS (7 sets, daily range): BP systolic 122–135; BP diastolic 66–77; PULSE 84–96; RESP 16–18; TEMP 36.3–36.9; O2SAT 95–96
[2018-12-04] MEDS: MELATONIN 3 MG TABLET 6 MG PO (00:06)
--- NOTE | 2018-12-04 00:19 | PC.NURSE ---
Addendum entered by Maria Isabel Bates R.N. 12/04/18 06:14: Up to bathroom several times and noting improved ability to get self out of bed. Denies pain except when I get up; declines offer of pain med other than scheduled Tylenol. Original Note: Patient is alert and oriented. Affect appears brighter tonight and patient is less complaintive. Breath sounds CTA with RA sat of 98%. HRR. Denies nausea. BT present. Ileostomy is patent with yellow-brown liquid stool in bag; stoma is beefy red. Dressing to abdomen is CDI. Allevyn dressing over Bennie drain site (removed yesterday) is intact with serous drainage noted; no leakage. Has abrasions to lower right of Allevyn dressing and on RLQ of abdomen. 2 bandaids noted on back; patient states she was scratching. Blister under left breast no longer intact so area is open; Exudry is being used to keep skin to promote healing. Wearing abdominal binder. Is able to turn self in bed. Walking to bathroom with walker and SBA; supports weight well. [place] stockings off and damp but is wearing bilateral SCD's. States pain is 2/10 (incisional) but increases with movement; medicated with scheduled Tylenol and didn't feel need for narcotic. Voiding without dysuria, frequency or urgency following catheter removal yesterday. Fall risk score is moderate; bed alarm is activated.
[2018-12-04] MEDS: ACETAMINOPHEN 325 MG TABLET 650 MG PO ×4 (06:05→23:51)
[2018-12-04] MEDS: SODIUM CHLORIDE 0.9% FLUSH 10 ML IV ×2 (10:09→20:57)
[2018-12-04] MEDS: NYSTATIN POWDER 15GM 1 APPLIC TOP ×2 (10:10→20:56)
[2018-12-04] MEDS: ENOXAPARIN 40 MG/0.4 ML SYRINGE SUBCUT ×2 (10:12→20:56)
--- NOTE | 2018-12-04 10:37 | PT.IPTN ---
Current Diagnoses Diverticulitis of large intestine with perforation and abscess without bleeding (11/24/18) Surgery Performed Operation Date: 11/25/18 00:35 Actual Procedures p Exploratory Laparotomy GEN, right hemicolectomy, abdominal washout, sigmoid colectomy: beni, colorectal anastomosis, loop ileostomy, catecholization of greater omentum - Leonid Silvestre MD Physical Therapy Treatment Note M2 PT-IP Current Condition Start: 11/25/18 14:31 Freq: NEEDED Status: Active Protocol: Document 11/26/18 11:07 AB (Rec: 11/26/18 12:00 AB [id number]) Physical Therapy Current Condition Current Condition Evaluation Date 11/26/18 Treatment Diagnosis large bowel obstruction s/p ex -lap and hemicolectomy; generalized weakness Onset Date 11/24/18 Precautions Abdominal Surgery Precautions Log Roll Lifting Restrictions Gait Belt above Incisional Area M3 PT-IP Subjective Start: 11/25/18 14:31 Freq: NEEDED Status: Active Protocol: Document 12/04/18 10:36 LJ (Rec: 12/04/18 10:37 LJ [id number]) Subjective Physical Therapy Visit Type Type Patient Refusal Notes Pt states she has been up to use toilet multiple times and just wants to rest. Nursing in room states they will get her up later to walk. M4 PT-IP Mobility and Gait Start: 11/25/18 14:31 Freq: NEEDED Status: Active Protocol: Document 12/02/18 11:05 GGD (Rec: 12/02/18 11:31 GGD [id number]) PT-Transfer Assessment Sit to and From Stand Sit to and from Stand Contact Guard Assistance 1 Person Assistance Use of Upper Extremities Equipment Transfer Assistive Device Gait Belt Front Wheeled Walker Orthotic/Prosthetic Devices or Brace: No Transfers Transfer Destination Chair Transfer Ability Level of Assist Contact Guard Assistance 1 Person Assistance Use of Upper Extremities Gait Assessment Gait Gait Assistance Required: Contact Guard Assist Distance (Feet) 80 Assistive Devices Assistive Device Gait Belt Front Wheeled Walker Orthotic/Prosthetic Devices or Brace: No Gait Deviations General Gait Pattern Decreased Stride Length Decreased Feet Clearance Factors Limiting Gait Function Factors Limiting Gait Function Decreased Activity Tolerance Decreased Strength Pain Comments Gait Comments Pt ambulates with a slow small step gait pattern. M5 PT-IP Objective Assessments Start: 11/25/18 14:31 Freq: NEEDED Status: Active Protocol: Document 11/26/18 11:07 AB (Rec: 11/26/18 12:00 AB [id number]) Orientation Orientation/Cognition Level of Alertness Alert Orientation Name Age Place Situation Language Function Ability No Deficits Noted Safety Awareness Understands Safety Issues Memory Description No Deficits Noted Gross Range of Motion Lower Extremity ROM Assessment Within Functional Limits Strength Lower Extremity Strength Assessment Within Functional Limits Coordination Assessment Gross Coordination Gross Coordination WNL Sensation Assessment Sensation Gross Sensation WNL Muscle Tone Muscle Tone WNL Yes M6 PT-IP Treatment Start: 11/25/18 14:31 Freq: NEEDED Status: Active Protocol: Document 11/29/18 12:40 HH (Rec: 11/29/18 12:52 HH [email or web address]) Physical Therapy Treatment Education Education Provided Safety M7 PT-IP Assessment and Plan Start: 11/25/18 14:31 Freq: NEEDED Status: Active Protocol: Document 12/02/18 11:05 GGD (Rec: 12/02/18 11:34 GGD [id number]) PT Summary Assessment and Plan Summary Assessment Summary Pt very guarded with mobility. She was able to progress gait distance, but is very slow moving. She needed cues for hand placement with transfer to chair. Frequency of Treatment Frequency Of Treatment Once a Day Treatment Plan Physical Therapy Treatment Plan Bed Mobility Training Transfer Training Gait Training Therapeutic Exercise Balance Retraining Post Op Education Discharge Planning Hot or Cold Pack Neuromuscular Re-ed Coordination Retraining Manual Therapy Recommendations To Nursing Amount of Assist Needed 1 Person Assist Discharge Recommendations PT Discharge Recommendations SNF Rehab
--- NOTE | 2018-12-04 10:42 | CM.DPNOTE ---
Discharge plan cont. CERAMIC ARTIST called SANTOS Arita to clarify if she has heard from [facility] yet about the authorization for placement. She received a call from them requesting additional information, which she will be faxing later this morning. Still unsure if the auth will come through today, however she will call this CERAMIC ARTIST back later this afternoon once she has more information. CERAMIC ARTIST relayed to Dr. Silvestre that yesterday's d/c order will need to be cancelled, and that CERAMIC ARTIST will call him later this afternoon if we receive the auth, so that he can write a new d/c order for today.
--- NOTE | 2018-12-04 10:51 | PM.PN.1 ---
Subjective Date Patient Seen: 12/04/18 Time Patient Seen: 10:54 Interval history: Feeling quite well tolerating low residue diet Ready to leave hospital Exam Vital Signs (past 8 hours): - 12/04/18 03:30 12/04/18 07:58 Temperature 97.5 F L 97.3 F L Pulse Rate 84 92 H Respiratory Rate 16 18 Blood Pressure 134/76 127/77 Pulse Oximetry 95 96 Oxygen Delivery Method Room Air Oxygen Flow Rate 0 Narrative Exam Narrative: Well-appearing NAd ostomy pink abd minimally tender Objective Labs Result Diagrams: 12/01/18 06:48 12/01/18 06:48 Assessment & Plan Assessment & Plan narrative: 63 yo F POD9 after exlap with R colectomy, sigmoid colectomy, loop ileostomy with anastamosis x2 for obstructing sigmoid mass, with cecal perforation. Doing quite well. Ready for discharge to SNF Awaiting approval/bed on PO pain regiment, melatonin for sleep Continue low res diet Wet to dry packing continues to abdominal wound Ongoing PT, ostomy care D/c to SNF rehab whenever available-remove PICC line prior to discharge obesity enox dosing for dvt proph Quality VTE Deep Vein Thrombosis/Pulmonary Embolism Present on Admission: No
[2018-12-04] MEDS: OXYCODONE IR 5 MG TABLET PO (11:02)
[2018-12-04] MEDS: OXYCODONE IR 10 MG TABLET PO ×3 (13:15→20:56)
--- NOTE | 2018-12-04 14:34 | OT.IP.TRT ---
Current Diagnoses Diverticulitis of large intestine with perforation and abscess without bleeding (11/24/18) Surgery Performed Operation Date: 11/25/18 00:35 Actual Procedures p Exploratory Laparotomy GEN, right hemicolectomy, abdominal washout, sigmoid colectomy: beni, colorectal anastomosis, loop ileostomy, catecholization of greater omentum - Leonid Silvestre MD Occupational Therapy Treatment Note M2 OT-IP Current Condition Start: 12/01/18 17:33 Freq: Status: Active Protocol: Document 12/01/18 17:34 [facility] (Rec: 12/01/18 18:21 [facility] [id number]) Occupational Therapy Current Condition Current Condition Evaluation Date 12/01/18 Treatment Diagnosis Large bowel obstruction s/p ex -lap and hemicolectomy, weakness Post Operative Precautions Abdominal Surgery Precautions Log Roll Lifting Restrictions Gait Belt above Incisional Area Weight Bearing Status Weight Bearing Status Weight Bear as Tolerated M3 OT- IP Subjective and Pain Start: 12/01/18 17:33 Freq: Status: Active Protocol: Document 12/04/18 14:14 [facility] (Rec: 12/04/18 14:33 [facility] [id number]) OT- Subjective Occupational Therapy Visit Type Type Treatment Note Visit Start Time 13:54 Visit Stop Time 14:03 Total Visit Minutes 9 Occupational Therapy Visit Comments Patient Comments Pt not wanting to get out of bed at this time as awaiting for nursing to do dressing change. Pt agreed to talk to OT regarding toileting needs. 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 OT Pain Assessment Pain When Pain Assessed At Rest Pain Present Pain Present Pain Reported M4 OT- IP ADL's Start: 12/01/18 17:33 Freq: Status: Active Protocol: Document 12/04/18 14:14 [facility] (Rec: 12/04/18 14:33 [facility] [id number]) OT ADL-Toileting Devices Toileting Assistive Devices Toilet Paper Aid Comments OT Toileting Comments Gave pt information regarding toilet paper aids and able to talk through use , cleaning care and which one may work best for her. Able to show example of toilet tong. 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 No Deficits Identified M6 OT- IP Functional Cognition Start: 12/01/18 17:33 Freq: Status: Active Protocol: Document 12/02/18 10:58 PJM (Rec: 12/03/18 08:41 PJM [id number]) Cognitive Factors Limiting Selfcare Function Cognitive Ability Level of Alertness Alert Patient Orientation Name Age Birthday Month Date Year Day of Week Place Situation Attention Span Ability Capable of Focused Attention Capable of Sustained Attention Ability to Follow Commands Able to Follow One Step Commands Memory Description No Deficits Noted Cognitive Comments Cognitive Assessment Comments Pt asking appropriate questions about adapted ADL/ IADL techniques M7 OT- IP Mobility and Balance Start: 12/01/18 17:33 Freq: Status: Active Protocol: Document 12/03/18 16:10 PJM (Rec: 12/03/18 16:19 PJM [id number]) OT- Bed Mobility Assessment Rolling Type of Rolling Log Rolling Roll to Left Level of Assistance Contact Guard Assistance Supine to Sit Supine to Sit Assist Contact Guard Assistance Sit to Supine Sit to Supine Assist Moderate Assistance Scooting Scooting to Edge of Bed Contact Guard Assistance OT-Transfer Assessment Sit to and From Stand Sit to and from Stand Contact Guard Assistance Transfers Transfer Ability Contact Guard Assistance Technique Transfer Destination Bed Toilet Transfer Technique Stand Step Pivot Devices Transfer Assistive Devices Gait Belt Front Wheeled Walker OT- Gait Assessment Gait Gait Assistance Required: Contact Guard Assist Distance (Feet) 25 Assistive Devices Assistive Device Gait Belt Front Wheeled Walker Comments Gait Ability Comments pt moving more quickly today OT- Balance Assessment Sitting Balance and Reactions Static Sitting Balance Ability Good Dynamic Sitting Balance Ability Good Standing Balance and Reactions Static Standing Balance Ability Good Dynamic Standing Balance Ability Fair M8 OT- IP Objective Assessments Start: 12/01/18 17:33 Freq: Status: Active Protocol: Document 12/01/18 17:34 [facility] (Rec: 12/01/18 18:21 [facility] [id number]) OT Gross Range of Motion Upper Extremity Range of Motion Assessment Within Functional Limits OT Strength Comments Strength Comments WFL for needs. NOT formally tested due to recent abdominal surgery. OT-Muscle Tone Assessment Muscle Tone WNL Yes M9 OT- IP Assessment and Plan Start: 12/01/18 17:33 Freq: Status: Active Protocol: Document 12/04/18 14:14 [facility] (Rec: 12/04/18 14:33 [facility] [id number]) OT Summary Assessment and Plan Potential Rehabilitation Potential Good Summary OT Impairments Pain Strength Balance Functional Mobility Grooming Dressing Toileting Bathing Toilet Transfers Shower Transfers Progress Towards Goals Slow Progress due to Pain Slow Progress due to Medical Issues Assessment Summary Pt motivated to get strong and to be able to do self care for herself. Pt will benefit from skilled rehab prior to going home. Goals Grooming Goal Independent Dressing Goal Independent Stove Cleaner Sock Aid Toileting Goal Independent Bathing Goal Standby Assistance Toilet Transfer Goal Independent Shower Transfer Goal Standby Assistance 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 Education Goal Demonstrate Energy Conservation and Pacing Days to Meet Goals 5 Frequency of Treatment Frequency Of Treatment Once a Day Treatment Plan OT Treatment Plan ADL Training Functional Mobility Patient/Family Education Discharge Planning Discharge Recommendations OT Discharge Recommendations SNF Rehab Home Equipment Needs Shower chair, wide FWW
--- NOTE | 2018-12-04 15:00 | PC.NURSE ---
Dressing changed per orders. Tissue is pink and with serous drainage. Pt tolerated well.
--- NOTE | 2018-12-04 15:43 | CM.DPC ---
Addendum entered and electronically signed by Filomena Cortes DUONG 12/04/18 15:51: *Times that this COST CONTROL SPECIALIST f/u calling [facility] to monitor auth: 10:30AM, 2:25PM. Lyla's phone#[phone], . Original Note: D/C plan cont... Plan continues to be for pt to be placed at [facility]. She is medically cleared to go, however the delay remains waiting for the authorization from [facility]. Lyla and [facility] is working actively on this, and has faxed additional information to [facility] today, per their request. career development coordinator also faxed additional info to them as requested. This COST CONTROL SPECIALIST called pt's friend, Kyra with this update, and updated Dr. Silvestre re: the delay in d/c. He cancelled the d/c order from yesterday. Will continue to monitor for approval of the auth for placement.
--- NOTE | 2018-12-04 16:20 | PT.IPTN ---
Current Diagnoses Diverticulitis of large intestine with perforation and abscess without bleeding (11/24/18) Surgery Performed Operation Date: 11/25/18 00:35 Actual Procedures p Exploratory Laparotomy GEN, right hemicolectomy, abdominal washout, sigmoid colectomy: beni, colorectal anastomosis, loop ileostomy, catecholization of greater omentum - Leonid Silvestre MD Physical Therapy Treatment Note M2 PT-IP Current Condition Start: 11/25/18 14:31 Freq: NEEDED Status: Active Protocol: Document 11/26/18 11:07 AB (Rec: 11/26/18 12:00 AB [id number]) Physical Therapy Current Condition Current Condition Evaluation Date 11/26/18 Treatment Diagnosis large bowel obstruction s/p ex -lap and hemicolectomy; generalized weakness Onset Date 11/24/18 Precautions Abdominal Surgery Precautions Log Roll Lifting Restrictions Gait Belt above Incisional Area M3 PT-IP Subjective Start: 11/25/18 14:31 Freq: NEEDED Status: Active Protocol: Document 12/04/18 16:20 AB (Rec: 12/04/18 17:14 AB [id number]) Subjective Physical Therapy Visit Type Type Treatment Note Visit Start Time 16:20 Visit Stop Time 16:51 Total Visit Minutes 31 Number of FORESTRY FOREMAN Visits 0 Physical Therapy Visit Comments Patient Comments pt requested to use the toilet first and agreed to ambulate with PT Therapy Pain Assessment Pain When Pain Assessed During Mobility Pain Present Pain Present Pain Reported Location Abdomen Intensity 4 Scale Used Numeric (1 - 10) M4 PT-IP Mobility and Gait Start: 11/25/18 14:31 Freq: NEEDED Status: Active Protocol: Document 12/04/18 16:20 AB (Rec: 12/04/18 17:14 AB [id number]) PT-Bed Mobility Assessment Rolling Type of Rolling Log Rolling Level of Assist Standby Assistance Supine to Sit Supine to Sit Standby Assistance 1 Person Assistance Head of Bed Elevated Bedrails Sit to Supine Sit to Supine Moderate Assistance 1 Person Assistance Head of Bed Elevated Bedrails Scooting Scooting to Edge of Bed Standby Assistance PT-Transfer Assessment Sit to and From Stand Sit to and from Stand Standby Assistance Equipment Transfer Assistive Device Gait Belt Front Wheeled Walker Orthotic/Prosthetic Devices or Brace: No Transfers Transfer Destination Toilet Transfer Technique pt ambulated using FWW Comments Mobility Comments pt ambulated from the bed to the toilet using FWW SBA. pt was able to maintain standing using FWW for hygiene care but needs assistance. pt ambulated from the toilet to the sink SBA using FWW. pt was able to maintain standing using FWW SBA while completing handwashing. pt requested to go back to bed after ambulation. completed bed mobility log roll sit to supine. pt wants HOB elevated . completed sit to supine mod A and cues. call light and table placed within reach. Gait Assessment Gait Gait Assistance Required: Standby Assistance Contact Guard Assist Distance (Feet) 100 Able to Maintain Weight Bearing Status Yes During Gait Assistive Devices Assistive Device Gait Belt Front Wheeled Walker Orthotic/Prosthetic Devices or Brace: No Gait Deviations General Gait Pattern Antalgic Decreased Stride Length Decreased Feet Clearance Factors Limiting Gait Function Factors Limiting Gait Function Decreased Activity Tolerance Decreased Strength Limited Range of Motion Pain Poor Balance Comments Gait Comments pt ambulation using FWW initially requiring SBA but require CGA towards end of ambulation with slight body shaking . pt stated that she is tired. M5 PT-IP Objective Assessments Start: 11/25/18 14:31 Freq: NEEDED Status: Active Protocol: Document 11/26/18 11:07 AB (Rec: 11/26/18 12:00 AB [id number]) Orientation Orientation/Cognition Level of Alertness Alert Orientation Name Age Place Situation Language Function Ability No Deficits Noted Safety Awareness Understands Safety Issues Memory Description No Deficits Noted Gross Range of Motion Lower Extremity ROM Assessment Within Functional Limits Strength Lower Extremity Strength Assessment Within Functional Limits Coordination Assessment Gross Coordination Gross Coordination WNL Sensation Assessment Sensation Gross Sensation WNL Muscle Tone Muscle Tone WNL Yes M6 PT-IP Treatment Start: 11/25/18 14:31 Freq: NEEDED Status: Active Protocol: Document 12/04/18 16:20 AB (Rec: 12/04/18 17:14 AB [id number]) Physical Therapy Treatment Education Education Provided Safety M7 PT-IP Assessment and Plan Start: 11/25/18 14:31 Freq: NEEDED Status: Active Protocol: Document 12/04/18 16:20 AB (Rec: 12/04/18 17:14 AB [id number]) PT Summary Assessment and Plan Potential Rehabilitation Potential Good Summary Impairments Pain Strength Balance Bed Mobility Transfers Gait Activity Tolerance Progress Towards Goals Slow Progress due to Pain Slow Progress due to Activity Tolerance Assessment Summary pt progressing with mobility but continues to have decrease activity tolerance affecting safety and function. pt fatigues easily and presents with slight body/UE shaking towards end of ambulation. pt will require SNF to improve strength and mobility. Goals Bed Mobility Goal Standby Assistance Transfer Goal Independent Front Wheeled Walker Gait Goal Independent Front Wheel Walker Gait Distance 200 Other Goals to improve ambulation ~ 250 ft least restrictive AD or without AD Days to Meet Goals 10 Frequency of Treatment Frequency Of Treatment Once a Day Treatment Plan Physical Therapy Treatment Plan Bed Mobility Training Transfer Training Gait Training Therapeutic Exercise Balance Retraining Post Op Education Discharge Planning Hot or Cold Pack Neuromuscular Re-ed Coordination Retraining Manual Therapy Recommendations To Nursing Amount of Assist Needed 1 Person Assist Discharge Recommendations PT Discharge Recommendations SNF Rehab Equipment Needed for Home Before FWW if not safe with other AD/ Discharge without AD
[2018-12-04] MEDS: GABAPENTIN 400 MG CAPSULE 800 MG PO (20:56)
[2018-12-05] VITALS (10 sets, daily range): BP systolic 121–140; BP diastolic 71–82; PULSE 87–103; RESP 16–20; TEMP 36.5–36.9; O2SAT 94–99
--- NOTE | 2018-12-05 00:19 | PC.NURSE ---
Addendum entered by Anisha Ernandez R.N. 12/05/18 05:13: At 0500 pt check, pt was asleep and per pt's previous instructions to allow her to sleep and not wake her up for meds, I allowed her to continue to sleep. Original Note: Shift note: Received pt from evening shift. AxoX4, able to make needs known, VSS, on RA. Pt ambulated well to toilet and back to bed with minimal assistance, did require help with eugenia care. Pt reported 2/10 pain, given scheduled Tylenol. Pt requests that if she is asleep that she would prefer to not be woken up for scheduled oxycodone. SCDs on, call light in reach, pt is a moderate fall risks, no bed alarm as pt calls appropriately.
[2018-12-05] MEDS: ACETAMINOPHEN 325 MG TABLET 650 MG PO ×4 (05:33→23:41)
[2018-12-05] MEDS: OXYCODONE IR 10 MG TABLET PO ×4 (09:04→20:47)
[2018-12-05] MEDS: ENOXAPARIN 40 MG/0.4 ML SYRINGE SUBCUT ×2 (09:04→20:46)
[2018-12-05] MEDS: METHOCARBAMOL 500 MG TABLET 750 MG PO ×4 (09:05→20:51)
--- NOTE | 2018-12-05 10:40 | PT.IPTN ---
Current Diagnoses Diverticulitis of large intestine with perforation and abscess without bleeding (11/24/18) Surgery Performed Operation Date: 11/25/18 00:35 Actual Procedures p Exploratory Laparotomy GEN, right hemicolectomy, abdominal washout, sigmoid colectomy: beni, colorectal anastomosis, loop ileostomy, catecholization of greater omentum - Leonid Silvestre MD Physical Therapy Treatment Note M2 PT-IP Current Condition Start: 11/25/18 14:31 Freq: NEEDED Status: Active Protocol: Document 11/26/18 11:07 AB (Rec: 11/26/18 12:00 AB [id number]) Physical Therapy Current Condition Current Condition Evaluation Date 11/26/18 Treatment Diagnosis large bowel obstruction s/p ex -lap and hemicolectomy; generalized weakness Onset Date 11/24/18 Precautions Abdominal Surgery Precautions Log Roll Lifting Restrictions Gait Belt above Incisional Area M3 PT-IP Subjective Start: 11/25/18 14:31 Freq: NEEDED Status: Active Protocol: Document 12/05/18 10:40 GGD (Rec: 12/05/18 13:28 GGD [id number]) Subjective Physical Therapy Visit Type Type Treatment Note Visit Start Time 10:10 Visit Stop Time 10:39 Total Visit Minutes 29 Number of MOLDER MEAT Visits 1 Physical Therapy Visit Comments Patient Comments Pt willing to work with therapy. Therapy Pain Assessment Pain When Pain Assessed During Mobility Pain Present Pain Present Pain Reported M4 PT-IP Mobility and Gait Start: 11/25/18 14:31 Freq: NEEDED Status: Active Protocol: Document 12/05/18 10:40 GGD (Rec: 12/05/18 13:28 GGD [id number]) PT-Bed Mobility Assessment Rolling Type of Rolling Log Rolling Level of Assist Standby Assistance Supine to Sit Supine to Sit Standby Assistance 1 Person Assistance Sit to Supine Sit to Supine Standby Assistance 1 Person Assistance Scooting Scooting to Edge of Bed Standby Assistance PT-Transfer Assessment Sit to and From Stand Sit to and from Stand Standby Assistance Equipment Transfer Assistive Device Gait Belt Front Wheeled Walker Orthotic/Prosthetic Devices or Brace: No Transfers Transfer Destination Toilet Transfer Technique pt ambulated using FWW Transfer Ability Level of Assist Standby Assistance 1 Person Assistance Use of Upper Extremities Gait Assessment Gait Gait Assistance Required: Standby Assistance Distance (Feet) 220 Able to Maintain Weight Bearing Status Yes During Gait Assistive Devices Assistive Device Gait Belt Front Wheeled Walker Orthotic/Prosthetic Devices or Brace: No Gait Deviations General Gait Pattern Antalgic Decreased Stride Length Decreased Feet Clearance Factors Limiting Gait Function Factors Limiting Gait Function Decreased Activity Tolerance Decreased Strength Limited Range of Motion Pain Poor Balance M5 PT-IP Objective Assessments Start: 11/25/18 14:31 Freq: NEEDED Status: Active Protocol: Document 11/26/18 11:07 AB (Rec: 11/26/18 12:00 AB [id number]) Orientation Orientation/Cognition Level of Alertness Alert Orientation Name Age Place Situation Language Function Ability No Deficits Noted Safety Awareness Understands Safety Issues Memory Description No Deficits Noted Gross Range of Motion Lower Extremity ROM Assessment Within Functional Limits Strength Lower Extremity Strength Assessment Within Functional Limits Coordination Assessment Gross Coordination Gross Coordination WNL Sensation Assessment Sensation Gross Sensation WNL Muscle Tone Muscle Tone WNL Yes M6 PT-IP Treatment Start: 11/25/18 14:31 Freq: NEEDED Status: Active Protocol: Document 12/04/18 16:20 AB (Rec: 12/04/18 17:14 AB [id number]) Physical Therapy Treatment Education Education Provided Safety M7 PT-IP Assessment and Plan Start: 11/25/18 14:31 Freq: NEEDED Status: Active Protocol: Document 12/05/18 10:40 GGD (Rec: 12/05/18 13:28 GGD [id number]) PT Summary Assessment and Plan Summary Assessment Summary Pt improving with mobility. She needed less assist with bed mobility. She was able to progress gait distance. Frequency of Treatment Frequency Of Treatment Once a Day Recommendations To Nursing Amount of Assist Needed 1 Person Assist Discharge Recommendations PT Discharge Recommendations SNF Rehab
[2018-12-05] MEDS: SODIUM CHLORIDE 0.9% FLUSH 10 ML IV ×2 (10:49→20:53)
--- NOTE | 2018-12-05 11:48 | PM.DS.1 ---
History of Present Illness Date Patient Seen: 12/05/18 Time Patient Seen: 11:48 Chief complaint: SENT BY MD - POSSIBLE APPENDICITIS Narrative: Patient is approximately 9 days post extensive laparotomy left colon resection segmental, and right colectomy for perforated cecum related to an obstructing sigmoid diverticulitis. Patient has recovered remarkably. She has a diverting ileostomy protecting 2 anastomoses. She is on a regular diet with functioning ileostomy. She is now prepared for transfer to extended care facility for ongoing wound care. Her laparotomy incision is granulating nicely without signs of cellulitis. She is receiving b.i.d. wet to dry dressings for that. Discharge Providers Date of admission: 11/24/18 23:05 Discharge Date: 12/06/18 Consults: 11/25/18 10:42 Consult to Physical Therapy Evaluate & Treat Comment: stephanie major abdominal surgery Physician Instructions: Evaluate and Treat Consult to Wound Care Routine Comment: new temporary loop ileostomy Consulting Provider: [facility] 11/26/18 14:09 Consult to PICC Line RN Routine Comment: 11/28/18 14:18 Consult to Physical Therapy Evaluate & Treat Comment: Physician Instructions: Evaluate and Treat Consult to Scientific Software Engineer Routine Comment: d/c planning: expect her here at least 3 more day 11/28/18 14:19 Consult to Discharge Planning Routine Comment: 12/01/18 10:10 Consult to Occupational Therapy Evaluate & Treat Comment: Physician Instructions: Evaluate and treat Discharge provider: Albino Newsome MD Summary Discharge Diagnosis: Sigmoid colon obstruction with resultant perforated cecum. Status post segmental sigmoid resection and right colectomy with diverting ileostomy. Hospital Course: Patient had massive abdominal contamination and underwent a lengthy operation for right colectomy treating a perforated cecum and segmental sigmoid resection for an obstructing lesion. She has 2 anastomoses protected with an ileostomy. She has regained GI function through the ileostomy. She is eating a regular diet. She has no signs of ongoing sepsis. She is off antibiotic therapy. She has an open wound being treated with b.i.d. wet-to-dry dressings which will continue at the extended care facility. She is now ready for discharge which will occur tomorrow when her facility can except her with an available bed. Status at Discharge Cognitive/behavioral status at discharge: oriented Overall status at discharge: patient is back to baseline Time Spent with Patient Less than 30 minutes Exam Vital Signs (past 8 hours): - 12/05/18 05:46 12/05/18 08:00 12/05/18 08:05 Temperature 97.8 F 98.0 F Pulse Rate 87 91 H Respiratory Rate 16 18 Blood Pressure 121/78 137/73 Pulse Oximetry 96 96 98 12/05/18 11:30 Temperature 98.4 F Pulse Rate 103 H Respiratory Rate 20 Blood Pressure 125/71 Pulse Oximetry 95 Oxygen Delivery Method Room Air Oxygen Flow Rate 0 Objective Labs Result Diagrams: 12/01/18 06:48 12/01/18 06:48 Discharge Plan Discharge Plan Patient Disposition: SNF Transfer to: [facility], [facility] Diagnostic studies (x-ray, etc.): none Labs: none Discharge comment: Skilled Need - PT, wound care, ostomy care I certify the postop hospital intermediate care is medically necessary on a continuing basis for any conditions for which he/ she received care during this hospitalization.: Yes The receiving facility has agreed to accept transfer and provide medical treatment.: Yes Discharge Med Rec/Prescriptions Prescriptions: New acetaminophen 325 mg Tablet 650 mg PO Q6HR Qty: 60 RF: 0 enoxaparin [Lovenox] 40 mg/0.4 mL Syringe 40 mg subcut BID 14 Days Qty: 11.2 RF: 0 methocarbamol 500 mg Tablet 750 mg PO QID Qty: 20 RF: 0 gabapentin 400 mg capsule 800 mg PO BEDTIME Qty: 20 RF: 0 melatonin 3 mg Tablet 6 mg PO BEDTIME PRN (Reason: Insomnia) Qty: 60 RF: 0 nystatin [Nystop] 100,000 unit/gram Powder 1 applic topical BID Qty: 100 RF: 0 oxycodone 5 mg Tablet 5 - 10 mg PO Q4H PRN (Reason: Pain, Moderate (4-6)) Qty: 30 RF: 0 Discontinued diazepam 5 mg tablet 5 mg PO PRN PRN (Reason: Anxiety) RF: 0 Follow up/Referrals: Leonid Silvestre MD [Physician] - (follow up in 2 weeks in clinic) Discharge Health Status Brief summary of current health status: 63 yo woman s/p major abdominal operation: R colectomy, sigmoid colectomy, loop ileostomy for obstructing sigmoid tumor Multidrug resistant organism: No MDRO MDRO Verified by culture: No Precautions: [place] Provider Discharge Instructions Liquid consistency: Normal/Thin Food texture: Regular Diet comment: Low residue diet Activity: Activity as tolerated - Full weight bearing all 4 limbs. No lifting over 15lbs is only restriction Skin/Wound/Dressing Care Report to your healthcare provider any signs of infection, such as:: chills, fever Dressing: Wet to dry packing of midline wound BID with saline moistened kurlex rolls and dry ABD pads on top Other wound treatment: Ostomy care [facility] Reason for rehabilitation: Post-operative therapy and Recovery r/t decondition Rehab type: Physical therapy Discharge Data Attending Provider: Leonid Silvestre Admit Date/Time: 11/24/18 23:05 Quality VTE Deep Vein Thrombosis/Pulmonary Embolism Present on Admission: No
--- NOTE | 2018-12-05 11:52 | P.DS_ITS ---
History of Present Illness Date Patient Seen: 12/05/18 Time Patient Seen: 11:48 Chief complaint: SENT BY MD - POSSIBLE APPENDICITIS Narrative: Patient is approximately 9 days post extensive laparotomy left colon resection segmental, and right colectomy for perforated cecum related to an obs tructing sigmoid diverticulitis. Patient has recovered remarkably. She has a diverting ileostomy protecting 2 anastomoses. She is on a regular diet with functioning ileostomy. She is now prepared for transfer to extended care facility for ongoing wound care. Her laparotomy incision is granulating nicely without signs of cellulitis. She is receiving b.i.d. wet to dry dressings for that. Discharge Providers Date of admission: 11/24/18 23:05 Discharge Date: 12/06/18 Consults: 11/25/18 10:42 Consult to Physical Therapy Evaluate & Treat Comment: stephanie major abdominal surgery Physician Instructions: Evaluate and Treat Consult to Wound Care Routine Comment: new temporary loop ileostomy Consulting Provider: Jessica [facility] 11/26/18 14:09 Consult to PICC Line RN Routine Comment: 11/28/18 14:18 Consult to Physical Therapy Evaluate & Treat Comment: Physician Instructions: Evaluate and Treat Consult to Cognos Bi Developer Routine Comment: d/c planning: expect her here at least 3 more day 11/28/18 14:19 Consult to Discharge Planning Routine Comment: 12/01/18 10:10 Consult to Occupational Therapy Evaluate & Treat Comment: Physician Instructions: Evaluate and treat Discharge provider: Albino Newsome MD Summary Discharge Diagnosis: Sigmoid colon obstruction with resultant perforated cecum. Status post segmental sigmoid resection and right colectomy with diverting ileos hayden. Hospital Course: Patient had massive abdominal contamination and underwent a lengthy operation for right colectomy treating a perforated cecum and segmental sigmoid resection for an obstructing lesion. She has 2 anastomoses protected with an ileostomy. She has regained GI function through the ileostomy. She is eating a regular diet. She has no signs of ongoing sepsis. She is off antibiotic therapy. She has an open wound being treated with b.i.d. wet-to-dry dressings which will continue at the extended care facility. She is now ready for discharge which will occur tomorrow when her facility can except her with an available bed. Status at Discharge Cognitive/behavioral status at discharge: oriented Overall status at discharge: patient is back to baseline Time Spent with Patient Less than 30 minutes Exam Vital Signs (past 8 hours): - 12/05/18 05:46 12/05/18 08:00 12/05/18 08:05 Temperature 97.8 F 98.0 F Pulse Rate 87 91 H Respiratory Rate 16 18 Blood Pressure 121/78 137/73 Pulse Oximetry 96 96 98 12/05/18 11:30 Temperature 98.4 F Pulse Rate 103 H Respiratory Rate 20 Blood Pressure 125/71 Pulse Oximetry 95 Oxygen Delivery Method Room Air Oxygen Flow Rate 0 Objective Labs Result Diagrams: 12/01/18 06:48 12/01/18 06:48 Discharge Plan Discharge Plan Patient Disposition: SNF Transfer to: [facility], [facility] Diagnostic studies (x-ray, etc.): none Labs: none Discharge comment: Skilled Need - PT, wound care, ostomy care I certify the postop hospital retirement care is medically necessary on a continuing basis for any conditions for which he/ she received care during this hospitalization.: Yes The receiving facility has agreed to accept transfer and provide medical treatment.: Yes Discharge Med Rec/Prescriptions Prescriptions: New acetaminophen 325 mg Tablet 650 mg PO Q6HR Qty: 60 RF: 0 enoxaparin [Lovenox] 40 mg/0.4 mL Syringe 40 mg subcut BID 14 Days Qty: 11.2 RF: 0 methocarbamol 500 mg Tablet 750 mg PO QID Qty: 20 RF: 0 gabapentin 400 mg capsule 800 mg PO BEDTIME Qty: 20 RF: 0 melatonin 3 mg Tablet 6 mg PO BEDTIME PRN (Reason: Insomnia) Qty: 60 RF: 0 nystatin [Nystop] 100,000 unit/gram Powder 1 applic topical BID Qty: 100 RF: 0 oxycodone 5 mg Tablet 5 - 10 mg PO Q4H PRN (Reason: Pain, Moderate (4-6)) Qty: 30 RF: 0 Discontinued diazepam 5 mg tablet 5 mg PO PRN PRN (Reason: Anxiety) RF: 0 Follow up/Referrals: Leonid Silvestre MD [Physician] - (follow up in 2 weeks in clinic) Discharge Health Status Brief summary of current health status: 63 yo woman s/p major abdominal operation: R colectomy, sigmoid colectomy, loop ileostomy for obstructing sigmo id tumor Multidrug resistant organism: No MDRO MDRO Verified by culture: No Precautions: [place] Provider Discharge Instructions Liquid consistency: Normal/Thin Food texture: Regular Diet comment: Low residue diet Activity: Activity as tolerated - Full weight bearing all 4 limbs. No lifting over 15lbs is only restriction Skin/Wound/Dressing Care Report to your healthcare provider any signs of infection, such as:: chills, fever Dressing: Wet to dry packing of midline wound BID with saline moistened kurlex rolls and dry ABD pads on top Other wound treatment: Ostomy care [facility] Reason for rehabilitation: Post-operative therapy and Recovery r/t decondition Rehab type: Physical therapy Discharge Data Attending Provider: Leonid Silvestre Admit Date/Time: 11/24/18 23:05 Quality VTE Deep Vein Thrombosis/Pulmonary Embolism Present on Admission: No
--- NOTE | 2018-12-05 12:17 | CM.DPC ---
DCP/continued: Reviewed chart. Patient medically stable for discharge. AIR AND WATER FILLER placed call to [facility] re: authorization from PW. [facility]. Therefore, asked Lyla if facility would consider accepting patient for short stay under Medicaid. Lyla reports that they had already been considering this. Lyla needs to discuss with administration today. She will let AIR AND WATER FILLER know as soon as she can. Received call from Lyla before noon today. She reports that they will accept under Medicaid for short stay. Lyla reports that they cannot accept until tomorrow 12-06-18. Lyla requesting that AIR AND WATER FILLER obtain orders, scripts, and all discharge related material today and fax. Lyla will set up cabulance for greens picker at 10:00am on 12-06-18. Transport likely to be provided by [facility]. Spoke with RN, Dr. Farah, and battery recharger/Lissa re: the above. All notified of discharge in AM. Orders, PASRR, and script faxed to [facility]. Notified COMPUTER TECHNOLOGY TEACHER/Rupali of the above. Met with patient to confirm plan. Patient appreciative that she will be able to go to SNF for short stay. Patient aware and agreeable to transfer to [facility] in AM. In addition, to the above [facility] requesting ostomy supplies be sent over with patient to get through first few days. RN aware and will provide to patient upon d/c. P: [facility] in AM. Transport secured for 10:00AM. CM team to follow closely for any changes. DUONG Sexton
[2018-12-05] MEDS: NYSTATIN POWDER 15GM 1 APPLIC TOP ×2 (13:07→21:08)
[2018-12-05] MEDS: GABAPENTIN 400 MG CAPSULE 800 MG PO (20:46)
--- NOTE | 2018-12-05 22:49 | PC.NURSE ---
Pt dsging changed this shift, incision beni C/D/I. 5 wound sites well granulated, red, with scant pale green drainage. Stoma is red and beefy. Ostomy output is WNL. Pt pain was well controlled with scheduled pain medications. VSS.
--- NOTE | 2018-12-05 23:47 | PC.NURSE ---
Shift note: Received pt from evening shift. Pt Axox3, able to make needs known, uses call light appropriate, abdominal dressing is C/D/I, VSS and on RA. Pt requests that she is not to be woken up during the night for scheduled pain meds, that she prefers to sleep. Compression socks and SCDs are on and functioning. Pt is a moderate fall risk, bed alarm is active and call light is in reach.
[2018-12-06 03:00] VITALS: BP 150/76; PULSE 75; RESP 15; TEMP 36.7; O2SAT 94
[2018-12-06] MEDS: ACETAMINOPHEN 325 MG TABLET 650 MG PO (06:03)
[2018-12-06 07:40] VITALS: BP 130/77; PULSE 98; RESP 18; TEMP 36.1; O2SAT 96
[2018-12-06] MEDS: ENOXAPARIN 40 MG/0.4 ML SYRINGE SUBCUT (08:11)
[2018-12-06] MEDS: METHOCARBAMOL 500 MG TABLET 750 MG PO (08:12)
[2018-12-06] MEDS: OXYCODONE IR 10 MG TABLET PO (08:12)
[2018-12-06] MEDS: SODIUM CHLORIDE 0.9% FLUSH 10 ML IV (08:14)
--- NOTE | 2018-12-06 09:06 | CM.DPNOTE ---
DC Note: All was arranged yesterday for pt's DC to [facility] today. Pt remains agreeable and Dr Newsome's DC dated today. RN Kaylah aware of cabulance p/u time and this POLYSOMNOGRAPHIC TECHNOLOGIST placed call to Lyla to confirm no changes. RN to RN report should call P# [phone] P: DC to [facility] Medicaid short stay while [facility] to advocate for [facility] to authorize senior care and therapy needs, via [facility] today. Pt leaving w/extra Ostomy supplies per SNF request. PATITO
--- NOTE | 2018-12-06 10:19 | PC.NURSE ---
Addendum entered by Kaylah Tavarez R.N. 12/06/18 10:47: Ostomy 2 piece appliance supplies sent with pt that were in pt's room already. As noted below for ostomy change, The 1-3/4 inch/45mm pouch and barrier used with stoma paste and skin prep barrier wipe. 2nd attempt to call report, left message with phone number with a staff member at [facility] at [phone]. Pt has just arrived at [facility] and RN will call back. Original Note: Day Shift- PICC line removed at 0915 per hospital policy and protocol. Removed without difficulty. Line measured at 45cm, tip intact. Midline dressing changed without difficulty, slightly tender to lower abd. Wed to dry dressing changed per Dr's orders. Crystal intact, granulation tissue noted to 5 wound beds. Ostomy appliance had leaking under barrier/phlange. Removed and changed to new 2 piece appliance, stoma beefy red and moist. Pt left unit with discharge package at 1016 with [facility] transport. Pt teary at discharge, Support and encouragement provided. Attempted to call report at [phone] to [facility] at [phone], no answer and no way to leave a message, will attempt again.
== END 2018-12-06 10:16 | DRG 221 ==
LOC: ED 21:00 → AC 23:06 → ICU 11-25 08:00 → AC 11-29 14:43 → ICU 11-30 12:45
PROVIDERS: Anesthesiology; Internal Medicine; Nurse Practitioner Family; Specialist; Surgery; Admitting Provider Surgery; Emergency Provider Emergency Medicine; Visit Provider Surgery
PROC: 0DTF0ZZ Resection of Right Large Intestine, Open Approach (ICD-10-PCS; CPT 49000; principal; 2018-11-25 00:35)
DX: K57.20 Diverticulitis of large intestine with perforation and abscess without bleeding (principal); K56.609 Unspecified intestinal obstruction, unspecified as to partial versus complete obstruction; N73.6 Female pelvic peritoneal adhesions (postinfective); A41.9 Sepsis, unspecified organism; R65.20 Severe sepsis without septic shock; N17.9 Acute kidney failure, unspecified; N39.0 Urinary tract infection, site not specified; B96.20 Unspecified Escherichia coli [E. coli] as the cause of diseases classified elsewhere; Z68.42 Body mass index [BMI] 45.0-49.9, adult; E87.1 Hypo-osmolality and hyponatremia; K75.81 Nonalcoholic steatohepatitis (NASH); R00.0 Tachycardia, unspecified; I24.8 Other forms of acute ischemic heart disease; N83.201 Unspecified ovarian cyst, right side; F41.9 Anxiety disorder, unspecified; E66.9 Obesity, unspecified; E87.6 Hypokalemia; D62 Acute posthemorrhagic anemia
CPT/HCPCS: 36415; 36569; 36591; 36592; 71045; 74177; 80048; 80051; 80053; 81003; 81015; 82378; 82962; 83036; 83605; 83690; 83735; 83880; 84484; 85025; 85610; 85730; 86850; 86900; 86901; 87070; 87075; 87077; 87086; 87186; 87205; 87797; 93005; 93010; 94762; 96361; 96365; 96375; 97116; 97161; 97165; 97530; 97535; 99283; 99285; B4189; J0330; J1100; J1170; J1644; J1650; J1885; J2250; J2405; J2543; J2704; J3010; J3475; J3480; Q9967